=== PATIENT | male | born 1945 | race Caucasian/White ===

== ENCOUNTER → 2016-08-27 | Outpatient (CLI) | payer MEDICARE ==
--- NOTE | 2016-08-27 15:22 | US ---
EXAMINATION TYPE: US carotid duplex BILAT DATE OF EXAM: 08/27/2016 COMPARISON: NONE CLINICAL HISTORY: R42 dizziness and giddiness. EXAM MEASUREMENTS: RIGHT: Peak Systolic Velocity (PSV) cm/sec ----- Right CCA: 92.9 ----- Right ICA: 86.5 ----- Right ECA: 112.1 ICA/CCA ratio: 0.9 RIGHT: End Diastole cm/sec ----- Right CCA: 18.8 ----- Right ICA: 15.6 ----- Right ECA: 13.6 LEFT: Peak Systolic Velocity (PSV) cm/sec ----- Left CCA: 85.4 ----- Left ICA: 98.3 ----- Left ECA: 100.3 ICA/CCA ratio: 1.2 LEFT: End Diastole cm/sec ----- Left CCA: 22.5 ----- Left ICA: 41.2 ----- Left ECA: 15.6 VERTEBRALS (direction of flow): Right Vertebral: Antegrade Left Vertebral: Antegrade IMPRESSION: I DO NOT SEE EVIDENCE OF A HEMODYNAMICALLY SIGNIFICANT STENOSIS IN EITHER CAROTID SYSTEM. Criteria for Assigning % of Stenosis / Diameter reduction (Estimation based on the indirect measurements of the internal carotid artery velocities (ICA PSV). 1. Normal (no stenosis)=ICA PSV < 125 cm/s: ratio < 2.0: ICA EDV<40 cm/s. 2. Less than 50% stenosis=ICA PSV < 125 cm/s: ratio < 2.0: ICA EDV<40 cm/s. 3. 50 to 69% stenosis=ICA PSV of 125 to 230 cm/s: ration 2.0 ? 4.0: ICA EDV 40-100 cm/s. 4. Greater than 70% stenosis to near occlusion= ICA PSV > 230 cm/s: ratio > 4.0: ICA EDV > 100 cm/s. 5. Near occlusion= ICA PSV velocities may be low or undetectable: variable ratio and ICA EDV. 6. Total occlusion=unable to detect flow.
--- NOTE | 2016-08-28 10:45 | ECHOF ---
Referral Reason:R01.1 cardiac murmur MEASUREMENTS -------- HEIGHT: 188.0 cm WEIGHT: 102.1 kg BP: RVIDd: 3.3 cm (< 3.3) IVSd: 1.2 cm (0.6 - 1.1) LVIDd: 5.0 cm (3.9 - 5.3) LVPWd: 1.2 cm (0.6 - 1.1) IVSs: 1.5 cm LVIDs: 3.8 cm LVPWs: 1.5 cm LAESV Index (A-L): 29.53 ml/m Ao Diam: 3.0 cm (2.0 - 3.7) AV Cusp: 1.6 cm (1.5 - 2.6) LA Diam: 3.1 cm (2.7 - 3.8) MV EXCURSION: 15.965 mm (> 18.000) MV EF SLOPE: 91 mm/s (70 - 150) EPSS: 0.8 cm MV E Yakov: 0.59 m/s MV DecT: 439 ms MV A Yakov: 0.53 m/s MV E/A Ratio: 1.12 AV maxP.66 mmHg AV meanP.59 mmHg RAP: 5.00 mmHg RVSP: 9.81 mmHg FINDINGS -------- Sinus rhythm. This was a technically good study. There is mild concentric left ventricular hypertrophy. There is normal global left ventricular contractility. Overall left ventricular systolic function is mild-moderately impaired with, an EF between 40 - 45 %. The right ventricle is normal in size and function. LA is midly dilated 29-33ml/m2. The right atrium is normal in size. Aortic valve is trileaflet and is mildly thickened. There is mild aortic regurgitation. The mitral valve leaflets are mildly thickened. Mild mitral regurgitation is present. Trace tricuspid regurgitation present. There is no evidence of pulmonary hypertension. The right ventricular systolic pressure, as measured by Doppler, is 9.81mmHg. There is no pulmonic regurgitation present. The aortic root size is normal. The inferior vena cava is mildly dilated. There is no pericardial effusion. CONCLUSIONS -------- 1. Sinus rhythm. 2. Trace tricuspid regurgitation present. 3. There is no evidence of pulmonary hypertension. 4. There is no pulmonic regurgitation present. 5. The aortic root size is normal. 6. The inferior vena cava is mildly dilated. 7. There is no pericardial effusion. 8. This was a technically good study. 9. There is mild concentric left ventricular hypertrophy. 10. Overall left ventricular systolic function is mild-moderately impaired with, an EF between 40 - 45 %. 11. LA is midly dilated 29-33ml/m2. 12. Aortic valve is trileaflet and is mildly thickened. 13. There is mild aortic regurgitation. 14. The mitral valve leaflets are mildly thickened. 15. Mild mitral regurgitation is present. KNEE BOLTER: Austin Robb RDCS
== END | disposition home or self-care (01) ==
LOC: RADUSMAIN 14:04
PROVIDERS: ATTEND Family Medicine
DX: I08.3 Combined rheumatic disorders of mitral, aortic and tricuspid valves (principal); R42 Dizziness and giddiness
CPT/HCPCS: 93306; 93880

== ENCOUNTER 2017-05-26 09:10 | Inpatient (IN) | payer MEDICARE ==
[2017-05-26] MEDS ORDERED: methylPREDNISolone SOD SUCCI 125 MG/2 ML VIAL IV STA (09:33)
[2017-05-26] MEDS ORDERED: IPRATROPIUM 0.5 MG/2.5 ML NEBU INHALATION STA (09:33)
[2017-05-26] MEDS ORDERED: ALBUTEROL NEBULIZED 2.5 MG/3 ML INHALATION STA (09:33)
--- NOTE | 2017-05-26 09:36 | ED ---
General Adult HPI - General Chief complaint: Shortness of Breath Stated complaint: JUAN Time Seen by Provider: 05/26/17 09:12 Source: patient, EMS Mode of arrival: EMS Limitations: no limitations - History of Present Illness Initial comments: 72-year-old male history of COPD presents with 3 days cough and worsening dyspnea. Patient states his cough is productive of white sputum. Denies chest pain. Denies lower extremity pain or swelling. Patient has had low-grade temperature and rhinorrhea. No abdominal pain. No nausea vomiting. Remote history of tobacco use. - Related Data Home Medications Medication Instructions Recorded Confirmed cloNIDine HCL [Catapres] 0.3 mg PO DAILY 06/29/15 05/26/17 Albuterol Inhaler [Ventolin Hfa 1 - 2 puff INHALATION RT-Q6H PRN 05/26/17 Inhaler] Tiotropium [place] [Spiriva] 1 cap INHALATION RT-DAILY 05/26/17 05/26/17 Allergies Allergy/AdvReac Type Severity Reaction Status Date / Time No Known Allergies Allergy Verified 05/26/17 09:59 Review of Systems ROS Statement: Those systems with pertinent positive or pertinent negative responses have been documented in the HPI. ROS Other: All systems not noted in ROS Statement are negative. Past Medical History Past Medical History: COPD, Hypertension, Osteoarthritis (OA), Sleep Apnea/CPAP/ BIPAP Additional Past Medical History / Comment(s): Renal calculi x 2, PRUDENCIO without machine use, arthritis bilateral thumbs, L foot drop R/T sciatica. History of Any Multi-Drug Resistant Organisms: None Reported Past Surgical History: Hernia Repair, Orthopedic Surgery, Tonsillectomy Additional Past Surgical History / Comment(s): RT KNEE SCOPE. BILATERAL CATARACTS with lens implants. COLONOSCOPY with benign polypectomy, 06/05/15 umb hernia and R ing. hernia repair Past Anesthesia/Blood Transfusion Reactions: No Reported Reaction Past Psychological History: No Psychological Hx Reported Smoking Status: Current every day smoker Past Alcohol Use History: Occasional Past Drug Use History: None Reported - Past Family History Sister(s) Family Medical History: Cancer Father Family Medical History: Cancer Additional Family Medical History / Comment(s): Father had lung and colon cancer. He had cirrhosis. He just before his 80th birthday. He was a nonsmoker and a nondrinker. Mother Family Medical History: Diabetes Mellitus Additional Family Medical History / Comment(s): Mother was overweight. She at age 87 yrs. General Exam Limitations: no limitations General appearance: alert, in no apparent distress Head exam: Present: atraumatic, normocephalic Eye exam: Present: normal appearance, PERRL ENT exam: Present: normal exam Neck exam: Present: normal inspection. Absent: tenderness, meningismus Respiratory exam: Present: wheezes, rhonchi, decreased breath sounds, prolonged expiratory. Absent: respiratory distress Cardiovascular Exam: Present: regular rate, normal rhythm GI/Abdominal exam: Present: soft. Absent: distended, tenderness Extremities exam: Present: normal inspection, normal capillary refill. Absent: pedal edema Back exam: Present: normal inspection, full ROM Neurological exam: Present: alert, oriented X3, CN II-XII intact. Absent: motor sensory deficit Psychiatric exam: Present: normal affect, normal mood Skin exam: Present: warm, dry, intact. Absent: cyanosis, diaphoretic Course Vital Signs 05/26/17 05/26/17 05/26/17 09:15 09:36 09:48 Temperature 97.4 F L Pulse Rate 84 106 H 107 H Respiratory 24 18 24 Rate Blood Pressure 169/101 144/70 O2 Sat by Pulse 93 L 96 Oximetry 05/26/17 05/26/17 05/26/17 09:50 09:58 11:31 Temperature 97.6 F Pulse Rate 103 H 105 H Respiratory 24 14 Rate Blood Pressure 167/80 O2 Sat by Pulse 95 Oximetry 05/26/17 12:48 Temperature Pulse Rate 104 H Respiratory 20 Rate Blood Pressure 146/72 O2 Sat by Pulse 96 Oximetry - Reevaluation(s) Reevaluation #1: 05/26/17 12:51 On reevaluation, patient does feel somewhat better after steroids, and albuterol. However he continues to have bilateral wheezing and is somewhat dyspneic. EKG Findings - EKG Comments: EKG Findings:: EKG, sinus tachycardia with frequent PVC, rate of 108, CA interval 180, QRS duration 114, QTC 493, no T-wave inversion, no ST segment elevation Medical Decision Making - Medical Decision Making 72-year-old male presenting with worsening cough and dyspnea. Patient does have COPD. He is wheezing with decreased air entry bilaterally. Workup reveals normal white blood cell count, stable hemoglobin, mild hyponatremia 146. Troponin is 0.031 which is negative. BNP negative. Influenza negative. Chest x-ray shows COPD, there is concern for nodular versus scarring. Patient given steroids, albuterol, and Atrovent. On reevaluation he still remains quite dyspneic. He will be admitted for further treatment of COPD exacerbation. - Lab Data Result diagrams: 05/26/17 09:30 05/26/17 09:30 Lab Results 05/26/17 05/26/17 05/26/17 Range/Units 09:30 09:30 09:30 WBC (3.8-10.6) k/uL RBC (4.30-5.90) m/uL Hgb (13.0-17.5) gm/dL Hct (39.0-53.0) % MCV (80.0-100.0) fL MCH (25.0-35.0) pg MCHC (31.0-37.0) g/dL RDW (11.5-15.5) % Plt Count (150-450) k/uL Neutrophils % % Lymphocytes % % Monocytes % % Eosinophils % % Basophils % % Neutrophils # (1.3-7.7) k/uL Lymphocytes # (1.0-4.8) k/uL Monocytes # (0-1.0) k/uL Eosinophils # (0-0.7) k/uL Basophils # (0-0.2) k/uL PT (9.0-12.0) sec INR (<1.2) APTT (22.0-30.0) sec Sodium (137-145) mmol/L Potassium (3.5-5.1) mmol/L Chloride (98-107) mmol/L Carbon Dioxide (22-30) mmol/L Anion Gap mmol/L BUN (9-20) mg/dL Creatinine (0.66-1.25) mg/dL Est GFR (CKD-EPI)AfAm (>60 ml/min/1.73 sqM) Est GFR (CKD-EPI)NonAf (>60 ml/min/1.73 sqM) Glucose (74-99) mg/dL Plasma Lactic Acid Arun 1.4 (0.7-2.0) mmol/L Calcium (8.4-10.2) mg/dL Magnesium (1.6-2.3) mg/dL Total Bilirubin (0.2-1.3) mg/dL AST (17-59) U/L ALT (21-72) U/L Alkaline Phosphatase (38-126) U/L Total Creatine Kinase 97 (55-170) U/L CK-MB (CK-2) 3.6 H* (0.0-2.4) ng/mL CK-MB (CK-2) Rel Index 3.7 Troponin I 0.031 (0.000-0.034) ng/mL NT-Pro-B Natriuret Pep pg/mL Total Protein (6.3-8.2) g/dL Albumin (3.5-5.0) g/dL Influenza Type A RNA Not Detected (Not Detectd) Influenza Type B (PCR) Not Detected (Not Detectd) 05/26/17 05/26/17 05/26/17 Range/Units 09:30 09:30 09:30 WBC 7.9 (3.8-10.6) k/uL RBC 4.50 (4.30-5.90) m/uL Hgb 15.1 (13.0-17.5) gm/dL Hct 43.8 (39.0-53.0) % MCV 97.4 (80.0-100.0) fL MCH 33.6 (25.0-35.0) pg MCHC 34.5 (31.0-37.0) g/dL RDW 12.8 (11.5-15.5) % Plt Count 191 (150-450) k/uL Neutrophils % 78 % Lymphocytes % 11 % Monocytes % 4 % Eosinophils % 6 % Basophils % 0 % Neutrophils # 6.2 (1.3-7.7) k/uL Lymphocytes # 0.9 L (1.0-4.8) k/uL Monocytes # 0.4 (0-1.0) k/uL Eosinophils # 0.5 (0-0.7) k/uL Basophils # 0.0 (0-0.2) k/uL PT (9.0-12.0) sec INR (<1.2) APTT (22.0-30.0) sec Sodium 146 H (137-145) mmol/L Potassium 4.2 (3.5-5.1) mmol/L Chloride 105 (98-107) mmol/L Carbon Dioxide 27 (22-30) mmol/L Anion Gap 14 mmol/L BUN 19 (9-20) mg/dL Creatinine 1.10 (0.66-1.25) mg/dL Est GFR (CKD-EPI)AfAm 76 (>60 ml/min/1.73 sqM) Est GFR (CKD-EPI)NonAf 66 (>60 ml/min/1.73 sqM) Glucose 121 H (74-99) mg/dL Plasma Lactic Acid Arun (0.7-2.0) mmol/L Calcium 9.1 (8.4-10.2) mg/dL Magnesium 1.8 (1.6-2.3) mg/dL Total Bilirubin 0.7 (0.2-1.3) mg/dL AST 36 (17-59) U/L ALT 35 (21-72) U/L Alkaline Phosphatase 74 (38-126) U/L Total Creatine Kinase (55-170) U/L CK-MB (CK-2) (0.0-2.4) ng/mL CK-MB (CK-2) Rel Index Troponin I (0.000-0.034) ng/mL NT-Pro-B Natriuret Pep 1000 pg/mL Total Protein 6.9 (6.3-8.2) g/dL Albumin 3.8 (3.5-5.0) g/dL Influenza Type A RNA (Not Detectd) Influenza Type B (PCR) (Not Detectd) 05/26/17 Range/Units 09:30 WBC (3.8-10.6) k/uL RBC (4.30-5.90) m/uL Hgb (13.0-17.5) gm/dL Hct (39.0-53.0) % MCV (80.0-100.0) fL MCH (25.0-35.0) pg MCHC (31.0-37.0) g/dL RDW (11.5-15.5) % Plt Count (150-450) k/uL Neutrophils % % Lymphocytes % % Monocytes % % Eosinophils % % Basophils % % Neutrophils # (1.3-7.7) k/uL Lymphocytes # (1.0-4.8) k/uL Monocytes # (0-1.0) k/uL Eosinophils # (0-0.7) k/uL Basophils # (0-0.2) k/uL PT 10.0 (9.0-12.0) sec INR 1.0 (<1.2) APTT 23.1 (22.0-30.0) sec Sodium (137-145) mmol/L Potassium (3.5-5.1) mmol/L Chloride (98-107) mmol/L Carbon Dioxide (22-30) mmol/L Anion Gap mmol/L BUN (9-20) mg/dL Creatinine (0.66-1.25) mg/dL Est GFR (CKD-EPI)AfAm (>60 ml/min/1.73 sqM) Est GFR (CKD-EPI)NonAf (>60 ml/min/1.73 sqM) Glucose (74-99) mg/dL Plasma Lactic Acid Arun (0.7-2.0) mmol/L Calcium (8.4-10.2) mg/dL Magnesium (1.6-2.3) mg/dL Total Bilirubin (0.2-1.3) mg/dL AST (17-59) U/L ALT (21-72) U/L Alkaline Phosphatase (38-126) U/L Total Creatine Kinase (55-170) U/L CK-MB (CK-2) (0.0-2.4) ng/mL CK-MB (CK-2) Rel Index Troponin I (0.000-0.034) ng/mL NT-Pro-B Natriuret Pep pg/mL Total Protein (6.3-8.2) g/dL Albumin (3.5-5.0) g/dL Influenza Type A RNA (Not Detectd) Influenza Type B (PCR) (Not Detectd) Disposition Clinical Impression: Acute exacerbation of chronic obstructive airways disease Disposition: ADMITTED IP TO THIS HOSP Condition: Stable Is patient prescribed a controlled substance at discharge?: No Referrals: Andrew Elizalde MD [Primary Care Provider] - 1-2 days Decision to Admit Reason: Admit from EC Decision Date: 05/26/17 Decision Time: 12:53
[2017-05-26 09:51] LABS: Basophils % (A) 0 %; Eosinophils # (A) 0.5 k/uL (0-0.7); Eosinophils % (A) 6 %; HCT 43.8 % (39.0-53.0); HGB 15.1 gm/dL (13.0-17.5); Lymphocytes # (A) 0.9 k/uL (1.0-4.8); Lymphocytes % (A) 11 %; MCH 33.6 pg (25.0-35.0); MCHC 34.5 g/dL (31.0-37.0); MCV 97.4 fL (80.0-100.0); Mean Platelet Volume 7.3; Monocytes # (A) 0.4 k/uL (0-1.0); Monocytes % (A) 4 %; Neutrophils # (A) 6.2 k/uL (1.3-7.7); Neutrophils % (A) 78 %; Platelet Count 191 k/uL (150-450); RDW 12.8 % (11.5-15.5); WBC 7.9 k/uL (3.8-10.6)
[2017-05-26 09:56] LABS: Partial Thromboplastin Time 23.1 sec (22.0-30.0)
[2017-05-26 10:04] LABS: Albumin 3.8 g/dL (3.5-5.0); Calcium 9.1 mg/dL (8.4-10.2); Magnesium 1.8 mg/dL (1.6-2.3); Potassium 4.2 mmol/L (3.5-5.1); Total Bilirubin 0.7 mg/dL (0.2-1.3); Total Protein 6.9 g/dL (6.3-8.2)
[2017-05-26 10:44] LABS: Troponin I 0.031 ng/mL (0.000-0.034)
[2017-05-26 10:48] LABS: Creatine Kinase MB 3.6 ng/mL (0.0-2.4)
--- NOTE | 2017-05-26 11:03 | XR ---
EXAMINATION TYPE: XR chest 2V DATE OF EXAM: 05/26/2017 COMPARISON: 08/12/2015 and 06/29/2015 HISTORY: 72-year-old male difficulty breathing TECHNIQUE: PA and lateral views FINDINGS: Heart normal size. Mild elongation of the thoracic aorta. Mild diffuse interstitial prominence is unc hanged and mild hyperinflation. Chronic focal densities at the right base. Some nodularity at the rig ht base may be more pronounced. No new consolidation or pleural effusion. IMPRESSION: 1. COPD. No acute cardiopulmonary process. 2. Possible increasing nodularity at the right base. This may reflect pleural parenchymal scarring. C ontrast-enhanced CT can be performed nonemergently to exclude a pulmonary nodule and compare to 2015.
[2017-05-26] MEDS ORDERED: SODIUM CHLORIDE 0.9% 500 ML IV ONE (11:58)
[2017-05-26] MEDS ORDERED: NALOXONE 0.4 MG/ML 1 ML VIAL IV PRN (12:54)
[2017-05-26] MEDS ORDERED: ALBUTEROL NEBULIZED 2.5 MG/3 ML INHALATION PRN (12:55)
[2017-05-26] MEDS: ALBUTEROL NEBULIZED 2.5 MG/3 ML INHALATION SCH ×2 (15:22→18:50)
[2017-05-26] MEDS: SODIUM CHLORIDE 0.9% 1,000 ML IV SCH (15:23)
[2017-05-26] MEDS ORDERED: methylPREDNISolone SOD SUCCI 125 MG/2 ML VIAL IV SCH (21:00)
[2017-05-26] MEDS ORDERED: RX INFO: IV CONTRAST WAS GIVEN 1 EACH MISC MISCELLANE PRN (23:32)
--- NOTE | 2017-05-27 00:22 | HP ---
HISTORY AND PHYSICAL DATE OF ADMISSION: 05/26/2017. PRESENTING COMPLAINT: Cough, short of breath. HISTORY OF PRESENTING COMPLAINT: Pleasant 72-year-old patient of Dr. Elizalde. Chronic stable medical conditions include hypertension, osteoarthritis, chronic left foot drop for which he wears support. The patient has continued to smoke off and on for quite some time, more so in the past. For 10 days patient is getting more and more short of breath and tired. Today became more short of breath, increasing wheezing, some white phlegm. No fever, no chills, tired and run down. Decided to finally come down to the ER. The patient receive some breathing treatments, felt a bit better. The patient does have some chronic swelling of the left lower extremity on presentation to the hospital. Denies obvious chest pressure. REVIEW OF SYSTEM: CONSTITUTIONAL: Tired. HEENT: None. RESPIRATORY: As above. CARDIOVASCULAR: As above. GASTROINTESTINAL: None. MUSCULOSKELETAL: Arthritic pain in multiple joints. DERMATOLOGIC: None. HEMATOLOGIC: None. LYMPHATICS: None. PSYCHIATRY: None. NEUROLOGIC: None. PAST MEDICAL HISTORY: COPD, hypertension, osteoarthritis, sleep apnea does not use CPAP machine, nephrolithiasis, osteoarthritis in both hands and thumbs and right knee, left foot drop. PAST SURGICAL HISTORY: Hernia repair, tonsillectomy, right knee scope, bilateral cataract with lens implant, colonoscopy with benign polypectomy, umbilical and right inguinal hernia repair. SOCIAL HISTORY: Lives by himself. He was smoking for over 40 years, down to about a quarter-pack a day. The patient drinks peppermint schnapps probably every other day. FAMILY HISTORY: Father had lung and colon cancer, also had cirrhosis. HOME MEDICATIONS: Spiriva 1 capsule daily, Ventolin 1 to 2 puffs every 6 hours p.r.n., Catapres 0.3 mg p.o. daily. ALLERGIES: None. PHYSICAL EXAMINATION: Vital signs on presentation, temperature 97.4, pulse of 106, respirations 24, blood pressure 140/70, pulse ox 93% on room AIR. GENERAL APPEARANCE: Average built, sitting up, tired appearing. EYES: Pupils equal. Conjunctivae normal. HEENT: Oral cavity normal. NECK: JVD not raised. Mass not palpable. Respiratory effort decreased. LUNGS: Decreased breath sounds. Prolonged expiration and wheezing. CARDIOVASCULAR: First and second sounds. No edema. ABDOMEN: Soft, nontender. Liver and spleen not palpable. LYMPHATIC: No lymph nodes palpable in neck or axillae. PSYCHIATRY: Alert and oriented x3. Mood normal. NEUROLOGIC: Pupils clear. Cranial nerves grossly intact. Power and sensation grossly intact except the patient on the left leg has a footdrop. INVESTIGATIONS: White count 7.9, hemoglobin 15.1, potassium 4.2. BUN AND creatinine normal. Troponin 0.031. ProBNP is . Influenza A and B negative. EKG shows some premature atrial beats and some ventricular beats. ASSESSMENT: 1. Acute chronic obstructive pulmonary disease exacerbation in a current smoker. 2. Essential hypertension. 3. Primary osteoarthritis of multiple joints. 4. Chronic left foot drop. 5. Obstructive sleep apnea, patient has not been using CPAP machine. 6. Chronic nicotine dependence, patient is a cigarette smoker. 7. Given patient's presentation, rule out pulmonary embolism and also consider pulmonary hypertension. The patient has some clinical history suggestive of subtle ischemic heart disease and we will do some more serial troponins. PLAN: The patient has been put on IV Solu-Medrol and nebulized bronchodilator. The patient also will be put on aspirin. Also do 2D echocardiogram and a CT angio of the chest. We will get a cardiology opinion and consult Pulmonary. Smoking cessation counseling was done with the patient and told him about the effects including COPD. The patient was also given nicotine patch. More than 3 minutes was spent on this aspect of the case. ZAFARL / ADONISN: [id number] /
--- NOTE | 2017-05-27 00:30 | CT ---
EXAMINATION TYPE: CT angio chest DATE OF EXAM: 05/27/2017 12:19 AM COMPARISON: 06/29/2015 HISTORY: R/O PE CT DLP: 537.00 mGycm Automated exposure control for dose reduction was used. CONTRAST: CTA scan of the thorax is performed with IV Contrast, patient injected with 80 mL of Isovue 370, pulm onary embolism protocol. There are 3-D post processed images.. FINDINGS: There is diffuse pulmonary emphysema. There is coarse linear density in the right middle lobe consist ent with pleural and pulmonary scarring and atelectasis. I see no pulmonary mass. There is no pleural effusion. Heart size is normal. There is no pericardial effusion. I see no filling defects in the pulmonary arteries. Thoracic aorta is atheromatous. There is no evide nce of aneurysm or dissection. There are a few mediastinal and bronchial lymph nodes that measure les s than 1 cm. There is spurring in the thoracic spine. IMPRESSION: NO EVIDENCE OF PULMONARY EMBOLISM. RIGHT MIDDLE LOBE PLEURAL AND PULMONARY SCARRING AND ATELECTASIS. PULMONARY EMPHYSEMA. THERE IS OVERALL NOT A SIGNIFICANT CHANGE COMPARED TO OLD EXAM.
[2017-05-27] MEDS: methylPREDNISolone SOD SUCCI 40 MG/ML 1 ML VIAL IV SCH ×3 (02:34→16:52)
[2017-05-27] MEDS: SODIUM CHLORIDE 0.9% 1,000 ML IV SCH ×2 (02:34→11:07)
[2017-05-27] MEDS: IPRATROPIUM-ALBUTEROL 3 ML NEB INHALATION SCH ×5 (07:07→19:16)
[2017-05-27] MEDS ORDERED: ALBUTEROL NEBULIZED 2.5 MG/3 ML INHALATION SCH (08:00)
[2017-05-27] MEDS: cloNIDine HCL 0.1 MG TAB PO SCH (08:41)
[2017-05-27] MEDS: NICOTINE 7MG/24HR PATCH TRANSDERM SCH (08:42)
[2017-05-27 09:13] VITALS: RESP 18
--- NOTE | 2017-05-27 11:24 | ECHOF ---
Referral Reason:poss pulm HTN MEASUREMENTS -------- HEIGHT: 182.9 cm WEIGHT: 102.1 kg BP: 126/78 IVSd: 1.4 cm (0.6 - 1.1) LVIDd: 3.9 cm (3.9 - 5.3) LVPWd: 1.6 cm (0.6 - 1.1) IVSs: 1.9 cm LVIDs: 1.4 cm LVPWs: 1.6 cm Ao Diam: 3.8 cm (2.0 - 3.7) AV Cusp: 2.1 cm (1.5 - 2.6) LA Diam: 3.8 cm (2.7 - 3.8) MV EXCURSION: 15.618 mm (> 18.000) MV EF SLOPE: 73 mm/s (70 - 150) EPSS: 1.1 cm MV E Yakov: 0.68 m/s MV DecT: 199 ms MV A Yakov: 0.72 m/s MV E/A Ratio: 0.94 RAP: 5.00 mmHg RVSP: 14.41 mmHg FINDINGS -------- Resting tachycardia (HR>100bpm). This was a technically good study. The left ventricular size is normal. There is moderate concentric left ventricular hypertrophy. O verall left ventricular systolic function is mildly impaired with, an EF between 45 - 50 %. The right ventricle is normal in size and function. The left atrium is normal in size. The right atrium is normal in size. The aortic valve is trileaflet and appears structurally normal. There is trace mitral regurgitation. Trace tricuspid regurgitation present. Pulmonic valve appears structurally normal. The aortic root size is normal. The pericardium is normal. CONCLUSIONS -------- 1. Resting tachycardia (HR>100bpm). 2. This was a technically good study. 3. The left ventricular size is normal. 4. There is moderate concentric left ventricular hypertrophy. 5. Overall left ventricular systolic function is mildly impaired with, an EF between 45 - 50 %. 6. The right ventricle is normal in size and function. 7. The left atrium is normal in size. 8. The right atrium is normal in size. 9. The aortic valve is trileaflet and appears structurally normal. 10. There is trace mitral regurgitation. 11. Trace tricuspid regurgitation present. 12. Pulmonic valve appears structurally normal. 13. The aortic root size is normal. 14. The pericardium is normal. 15. Basal inferior wall is mildly hypokinetic MEDICAL DIRECTOR/HEAD TEAM PHYSICIAN: Mara Dickerson RDCS
[2017-05-27 11:39] LABS: Cholesterol 149 mg/dL (<200); HDL Cholesterol 53 mg/dL (40-60); LDL Cholesterol,Calculated 81 mg/dL (0-99); Triglycerides 74 mg/dL (<150)
--- NOTE | 2017-05-27 12:37 | P.CNPUL ---
History of Present Illness Consult date: 05/27/17 Reason for consult: dyspnea, cough History of present illness: 72-year-old male patient with known history of COPD with a baseline FEV1 of 75% of predicted maintained on Spiriva on outpatient basis. His last COPD exacerbation was approximately 2 years ago and at that time the patient was briefly hospitalized and he was discharged home. He continued to smoke 1 pack of cigarettes a day. He was doing good without any major medical problems and comorbidities. Yesterday the patient acutely became more short of breath. He felt he was having excessive chest congestion and he had increased dyspnea wheezing. He started using his Ventolin rescue inhaler more frequently. Ultimately he decided to come into the hospital for further care. He had no fever or chills. He had no pleurisy. No hemoptysis. His white cell count was at 7.9. Rest of the blood work and electrodes were all within normal limits. He did have over some troponin leak with troponin level of 0.031 and 0.08 respectively. The patient was seen by cardiology. Echocardiogram has been ordered. The EKG showed a normal sinus rhythm with occasional PVCs. Echocardiac Allen showed a moderate concentric left ventricular hypertrophy and an ejection fraction of 55-60% and there is no other valvular abnormalities noted. CT angios the chest was also done that showed no evidence of any pulmonary embolism. There is some limited elevation of the right hemidiaphragm. There is also pulmonary scarring/atelectasis along the right middle lobe. No other major abnormalities were noted. Clinically the patient is feeling better. Less short of breath bronchospastic and wheezy on today's evaluation. No swelling lower extremities pain no 70 DVTs or pulmonary embolism. No other complaints otherwise. Review of Systems Constitutional: Reports as per HPI Eyes: denies blurred vision, denies bulging eye, denies decreased vision Ears: deny: decreased hearing, ear discharge, earache Ears, nose, mouth and throat: Denies headache, Denies sore throat Cardiovascular: Reports decreased exercise tolerance, Reports dyspnea on exertion, Reports shortness of breath Respiratory: Reports cough, Reports dyspnea, Reports wheezing Gastrointestinal: Denies abdominal pain, Denies diarrhea, Denies nausea, Denies vomiting Genitourinary: Reports as per HPI Musculoskeletal: Reports as per HPI Musculoskeletal: absent: ankle pain, ankle stiffness, ankle swelling Integumentary: Denies pruritus, Denies rash Neurological: Denies numbness, Denies weakness Psychiatric: Denies anxiety, Denies depression Endocrine: Denies fatigue, Denies weight change Hematologic/Lymphatic: Reports as per HPI Allergic/Immunologic: Reports as per HPI Past Medical History Past Medical History: COPD, GI Bleed, Hypertension, Osteoarthritis (OA), Renal Disease, Sleep Apnea/CPAP/BIPAP Additional Past Medical History / Comment(s): COPD with an FEV1 of 75% of predicted, obstructive sleep apnea not utilizing any treatment, history of nephrolithiasis, 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 COLONOSCOPY with benign polypectomy, 06/05/15 umbilical and right inguinal hernia repair Past Anesthesia/Blood Transfusion Reactions: No Reported Reaction Smoking Status: Current some day smoker - Past Family History Sister(s) Family Medical History: Cancer Father Family Medical History: Cancer Additional Family Medical History / Comment(s): Father had lung and colon cancer. He had cirrhosis. He just before his 80th birthday. He was a nonsmoker and a nondrinker. Mother Family Medical History: Diabetes Mellitus Additional Family Medical History / Comment(s): Mother was overweight. She at age 87 yrs. Medications and Allergies Home Medications Medication Instructions Recorded Confirmed Type cloNIDine HCL [Catapres] 0.3 mg PO DAILY 06/29/15 05/26/17 History Albuterol Inhaler [Ventolin Hfa 1 - 2 puff INHALATION RT-Q6H PRN 05/26/17 History Inhaler] Tiotropium [place] [Spiriva] 1 cap INHALATION RT-DAILY 05/26/17 05/26/17 History Allergies Allergy/AdvReac Type Severity Reaction Status Date / Time No Known Allergies Allergy Verified 05/26/17 09:59 Physical Exam Vitals: Vital Signs Temp Pulse Pulse Resp BP BP Pulse Ox 05/27/17 11:13 104 H 05/27/17 10:53 100 05/27/17 09:18 130/70 05/27/17 07:20 102 H 05/27/17 07:09 100 94 L 05/27/17 07:00 97.7 F 91 18 93 L 05/26/17 23:32 20 05/26/17 20:15 98.8 F 97 20 126/78 95 05/26/17 19:03 18 05/26/17 18:58 104 H 05/26/17 18:52 100 05/26/17 16:00 18 05/26/17 15:35 98.3 F 96 101 H 18 161/80 93 L 05/26/17 15:22 100 05/26/17 14:00 102 H 20 137/68 96 05/26/17 12:48 104 H 20 146/72 96 Intake and Output 05/26/17 05/27/17 05/27/17 22:59 06:59 14:59 Intake Total 900 980 Balance 900 980 Intake: Intake, IV Titration 300 500 Amount Sodium Chloride 0.9% 1, 300 500 000 ml @ 75 mls/hr IV . [id number] [facility] Rx#:[id number] Oral 600 480 Other: Voiding Method Toilet Toilet # Voids 2 2 Weight 102 kg The patient appeared well nourished and normally developed. Vital signs as documented. Head exam is unremarkable. No scleral icterus or corneal arcus noted. Neck is without jugular venous distension, thyromegaly, or carotid bruits. Carotid upstrokes are brisk bilaterally. Lungs are diminished breath sounds bilaterally along with prolongation of expiratory phase of breathing and scattered expiratory wheezes heard throughout the lung his bilaterally. Cardiac exam reveals the PMI to be normally sized and situated. Rhythm is regular. First and second heart sounds normal. No murmurs, rubs or gallops. Abdominal exam reveals normal bowel sounds, no masses, no organomegaly and no aortic enlargement. Extremities are nonedematous and both femoral and pedal pulses are normal. Neurologically patient is awake and alert and there is no focal neurological deficit.Examination of the skin revealed no evidence of significant rashes, suspicious appearing nevi or other concerning lesions. Results - Laboratory Findings CBC and BMP: 05/26/17 09:30 05/26/17 09:30 PT/INR, D-dimer PT 10.0 sec (9.0-12.0) 05/26/17 09:30 INR 1.0 (<1.2) 05/26/17 09:30 Abnormal lab findings: Abnormal Labs 05/26/17 05/26/17 05/26/17 09:30 09:30 09:30 Lymphocytes # 0.9 L Sodium 146 H Glucose 121 H CK-MB (CK-2) 3.6 H* Troponin I 05/27/17 05/27/17 01:07 07:14 Lymphocytes # Sodium Glucose CK-MB (CK-2) Troponin I 0.085 H* 0.084 H* - Diagnostic Findings Chest x-ray: image reviewed CT scan - chest: image reviewed Assessment and Plan Plan: Assessment 1 acute COPD exacerbation with secondary shortness of breath 2 COPD mild in severity with a baseline FEV1 of 75% of predicted 3 acute bronchitis 4 chronic elevation of right hemidiaphragm 5 smoker 6 troponin leak are done that investigation. Echo of the heart is within normal limits. EKG is also within normal limits. Rule out acute non-ST segment elevation myocardial infarction 7 preserved LV function without any valvular abnormalities on today's echocardiogram 8 degenerative arthritis 9 hypertension Plan In terms of the acute COPD exacerbation the patient is already improving. Reviewed the chest x-ray in the CAT scan of the chest. No major abnormal is a been noted and the patient has been counseled for smoking cessation. Continue bronchodilators and systemic steroids. The patient can be discharged home within next 24 hours and a prednisone burst taper in addition to Spiriva as maintenance which is an excellent choice in regards to COPD. No other complaints otherwise for now. The patient will be seen also by cardiology in regards to the troponin leak. Outpatient cardiac stress testing may be of value especially with his underlying troponin leak. No angina. No palpitations. No EKG changes. Echo was within normal limits.
--- NOTE | 2017-05-27 12:45 | P.CRDCN ---
History of Present Illness Consult date: 05/27/17 History of present illness: Mr. Hightower is a pleasant 72-year-old male past medical history significant for chronic tobacco use, COPD, hypertension, kidney disease and sleep apnea. He denies history of coronary artery disease and has never seen a air chief marshal for any reason. We have been asked to see him in consultation for elevated troponins. He presented to the hospital yesterday with complaints of cough, dyspnea, congestion and fever. He had been coughing for the previous week and bringing up significant amount of white/clear phlegm. He was managing at home until about 48 hrs ago when he started feeling increasing tired and short of breath. He denies symptoms of chest pain, dizziness, palpitations, nausea, vomiting or diaphoresis. He has been receiving IV steroids, breathing treatments and IV fluids since admission. At the time of my exam he is seen sitting up in bed in no acute distress with no complaints. He feels an improvement in his breathing and states his cough is more intermittent since admission but still coughing with clear sputum. EKG on arrival reveals sinus tachycardia heart rate 108 with PVCs. Chest x-ray reveals no acute cardiopulmonary process with evidence of underlying COPD. There is also possibility of an increasing nodularity at the right base. CT angios negative for pulmonary embolism with right middle lobe pleural and pulmonary scarring. Laboratory data reviewed hemoglobin 15.1, platelets 191, sodium 146, potassium 4.2, creatinine 1.1, magnesium 1.8, LDL 81, HDL 53, cardiac enzymes 0.031, 0.085 , 0.084. ProBNP 1000. Echocardiogram obtained reveals mildly decreased left ventricular systolic function with ejection fraction 45-50%, moderate LVH and basal inferior wall is mildly hypokinectic. Currently he takes clonidine 0.3 mg daily for blood pressure. Review of Systems At the time of my exam: CONSTITUTIONAL: Denies fever. Denies chills. EYES: Denies blurred vision. Denies vision changes. Denies eye pain. EARS, NOSE, MOUTH & THROAT: Denies headache. Denies sore throat. Denies ear pain. CARDIOVASCULAR: Denies chest pain. Denies shortness of breath. Denies orthopnea. Denies PND. Denies palpitations. RESPIRATORY: Complains of productive cough. GASTROINTESTINAL: Denies abdominal pain. Denies diarrhea. Denies constipation. Denies nausea. Denies vomiting. MUSCULOSKELETAL: Denies myalgias. INTEGUMENTARY: Denies pruitis. Denies rash. NEUROLOGIC: Denies numbness. Denies tingling. Denies weakness. PSYCHIATRIC: Denies anxiety. Denies depression. ENDOCRINE: Denies fatigue. Denies weight change. Denies polydipsia. Denies polyurina. GENITOURINARY: Denies burning, hematuria or urgency with micturation. HEMATOLOGIC: Denies history of anemia. Denies bleeding. Past Medical History Past Medical History: COPD, GI Bleed, Hypertension, Osteoarthritis (OA), Renal Disease, Sleep Apnea/CPAP/BIPAP Additional Past Medical History / Comment(s): Nephrolithiasis (3 stones), arthritis bilateral hands/thumbs, PRUDENCIO without device, R knee "unhappy triadP, L foot drop d/t sciatica, lower GI bleed thought d/t contipation. History of Any Multi-Drug Resistant Organisms: None Reported Past Surgical History: Hernia Repair, Orthopedic Surgery, Tonsillectomy Additional Past Surgical History / Comment(s): RT KNEE SCOPE, BILATERAL CATARACTS with lens implants. COLONOSCOPY with benign polypectomy, 06/05/15 umb hernia and R ing. hernia repair Past Anesthesia/Blood Transfusion Reactions: No Reported Reaction Smoking Status: Current some day smoker - Past Family History Sister(s) Family Medical History: Cancer Father Family Medical History: Cancer Additional Family Medical History / Comment(s): Father had lung and colon cancer. He had cirrhosis. He just before his 80th birthday. He was a nonsmoker and a nondrinker. Mother Family Medical History: Diabetes Mellitus Additional Family Medical History / Comment(s): Mother was overweight. She at age 87 yrs. Medications and Allergies Home Medications Medication Instructions Recorded Confirmed Type cloNIDine HCL [Catapres] 0.3 mg PO DAILY 06/29/15 05/26/17 History Albuterol Inhaler [Ventolin Hfa 1 - 2 puff INHALATION RT-Q6H PRN 05/26/17 History Inhaler] Tiotropium [place] [Spiriva] 1 cap INHALATION RT-DAILY 05/26/17 05/26/17 History Allergies Allergy/AdvReac Type Severity Reaction Status Date / Time No Known Allergies Allergy Verified 05/26/17 09:59 Physical Exam Vitals: Vital Signs Temp Pulse Pulse Resp BP BP Pulse Ox 05/27/17 11:13 104 H 05/27/17 10:53 100 05/27/17 09:18 130/70 05/27/17 07:20 102 H 05/27/17 07:09 100 94 L 05/27/17 07:00 97.7 F 91 18 93 L 05/26/17 23:32 20 05/26/17 20:15 98.8 F 97 20 126/78 95 05/26/17 19:03 18 05/26/17 18:58 104 H 05/26/17 18:52 100 05/26/17 16:00 18 05/26/17 15:35 98.3 F 96 101 H 18 161/80 93 L 05/26/17 15:22 100 05/26/17 14:00 102 H 20 137/68 96 05/26/17 12:48 104 H 20 146/72 96 Intake and Output 05/26/17 05/27/17 05/27/17 22:59 06:59 14:59 Intake Total 900 980 Balance 900 980 Intake: Intake, IV Titration 300 500 Amount Sodium Chloride 0.9% 1, 300 500 000 ml @ 75 mls/hr IV . [id number] [facility] Rx#:[id number] Oral 600 480 Other: Voiding Method Toilet Toilet # Voids 2 2 Weight 102 kg Blood pressure 126/78 heart rate 97 afebrile maintaining oxygen saturation on room air GENERAL: This is a 72-year-old male in no apparent distress at the time of my examination. HEENT: Head is atraumatic, normocephalic. Pupils are equal, round. Sclerae anicteric. Conjunctivae are clear. Mucous membranes of the mouth are moist. Neck is supple. There is no jugular venous distention. No carotid bruit is heard. LUNGS: Clear to auscultation no wheezes, rales or rhonchi. No chest wall tenderness is noted on palpation or with deep breathing. Diminished b/l. HEART: Regular rate and rhythm without murmurs, rubs or gallops. S1 and S2 heard. ABDOMEN: Soft, nontender. Bowel sounds are heard. No organomegaly noted. EXTREMITIES: Discoloration to left lower extremity up to knee with decreased muscle tone. Trace right lower extremity edema. VASCULAR: Radial and dorsalis pedis pulses palpated, no evidence of clubbing. NEUROLOGIC: Patient is awake, alert and oriented x3. Results 05/26/17 09:30 05/26/17 09:30 Cardiac Enzymes 05/27/17 05/27/17 Range/Units 01:07 07:14 Troponin I 0.085 H* 0.084 H* (0.000-0.034) ng/mL Lipids 05/27/17 Range/Units 07:14 Triglycerides 74 (<150) mg/dL Cholesterol 149 (<200) mg/dL HDL Cholesterol 53 (40-60) mg/dL Current Medications Generic Name Dose Route Start Last Admin Trade Name Freq PRN Reason Stop Dose Admin Albuterol/Ipratropium 3 ml 05/26/17 23:35 05/27/17 10:53 Duoneb 0.5 Mg-3 Mg/3 Ml Soln INHALATION 3 ml RT-QID [facility] Administration Aspirin 81 mg 05/27/17 11:00 Aspirin PO DAILY [facility] Clonidine 0.3 mg 05/27/17 09:00 05/27/17 08:41 Catapres PO 0.3 mg DAILY [facility] Administration Sodium Chloride 1,000 mls @ 75 mls/hr 05/26/17 13:00 05/27/17 11:07 Saline 0.9% IV 75 mls/hr .[id number] [facility] Administration Methylprednisolone Sodium Succinate 40 mg 05/27/17 02:00 05/27/17 08:37 Solu-Medrol IV 40 mg Q8HR [facility] Administration Metoprolol Tartrate 25 mg 05/27/17 11:00 Lopressor PO BID [facility] Miscellaneous Information 1 each 05/26/17 23:32 Rx Info: Iv Contrast Was Given MISCELLANE 05/28/17 23:32 DAILY PRN Per Protocol Naloxone HCl 0.2 mg 05/26/17 12:54 Narcan IV Q2M PRN Opioid Reversal Nicotine 1 patch 05/27/17 09:00 05/27/17 08:42 Habitrol 7mg/24hr Patch TRANSDERM 1 patch DAILY [facility] Administration Intake and Output 05/26/17 05/27/17 05/27/17 22:59 06:59 14:59 Intake Total 900 980 Balance 900 980 Intake: Intake, IV Titration 300 500 Amount Sodium Chloride 0.9% 1, 300 500 000 ml @ 75 mls/hr IV . [id number] [facility] Rx#:[id number] Oral 600 480 Other: Voiding Method Toilet Toilet # Voids 2 2 Weight 102 kg Patient Weight 05/28/17 06:59 Weight 102 kg 05/26/17 09:30 05/26/17 09:30 Assessment and Plan Assessment: ASSESSMENT 1. Acute COPD exacerbation 2. Mild troponin leak of unclear etiology 3. Hypertension 4. Sleep apnea not compliant with CPAP 5. Chronic tobacco use PLAN Echocardiogram was reviewed and reveals preserved LV systolic function. We will repeat an EKG now. Add aspirin 81 mg daily, lopressor 25 mg BID and check a lipid panel. Troponin elevation is not indicative of an acute coronary event, may be possibly related to oxygen mismatch. Smoking cessation recommended and discussed at length. We will continue to follow and maker further recommendations. The above impression and plan of care have been discussed and directed by the signing physician. Vera Mari, nurse practitioner, acting as scribe for signing physician.
[2017-05-27] MEDS: ASPIRIN 81 MG PO SCH (13:06)
[2017-05-27] MEDS: METOPROLOL TARTRATE 25 MG TAB PO SCH ×2 (13:06→21:20)
--- NOTE | 2017-05-27 16:23 | PN ---
PROGRESS NOTE DATE OF SERVICE: 05/27/17. PRESENTING COMPLAINT: Short of breath. INTERVAL HISTORY: This patient presented with COPD exacerbation. Also had some chest pressure. The patient did have a troponin leak. Breathing is getting better. REVIEW OF SYSTEMS: Done for constitutional, cardiovascular, GI, pulmonary; relevant findings as above. CURRENT MEDICATIONS: Include IV Solu-Medrol, DuoNeb. Lopressor has been added by Cardiology. PHYSICAL EXAMINATION: Temperature 97.7, pulse 80, respiratory 18, blood pressure 127/62, pulse ox 95% on room air. GENERAL APPEARANCE: Sitting up, looking better. EYES: Pupils equal. Conjunctivae normal. HEENT: External nose and ears normal. Oral cavity normal. NECK: JVD not raised. Mass not palpable. RESPIRATORY: Effort increased. Lungs, decreased breath sounds. Decreased wheezing. CARDIOVASCULAR: 1st and 2nd sounds, no edema. ABDOMEN: Soft, nontender. Liver and spleen not palpable. PSYCHIATRY: Alert and oriented x3. Mood and affect is normal. INVESTIGATIONS: LDL is 81. Troponin 0.031, 0.085, 0.084. 2D echo, moderate concentric LVH and EF 55- 60%. ASSESSMENT: 1. Acute chronic obstructive pulmonary disease exacerbation in a current smoker, improving. 2. Essential hypertension. 3. Primary osteoarthritis of multiple joints. 4. Chronic left foot drop. 5. Obstructive sleep apnea, has not been using CPAP. 6. Chronic nicotine dependence. Patient is a cigarette smoker. 7. Pulmonary embolism ruled out. 8. Concern for underlying ischemic heart disease. Given somewhat of the presentation and troponin leak, patient definitely shows a high risk for underlying coronary artery disease. PLAN: I discussed with the patient. The patient is agreeable for a stress test tomorrow. We will switch the patient over to oral prednisone. I did speak to Hina/GALLERY OR MUSEUM CURATOR from cardiology for a stress test for tomorrow. The patient will be made n.p.o. after midnight. MMODL / IJN: [id number] /
[2017-05-28] MEDS ORDERED: predniSONE 20 MG TAB PO SCH (09:00)
[2017-05-28] MEDS: METOPROLOL TARTRATE 25 MG TAB PO SCH (09:34)
[2017-05-28] MEDS: NICOTINE 7MG/24HR PATCH TRANSDERM SCH (09:50)
[2017-05-28] MEDS: cloNIDine HCL 0.1 MG TAB PO SCH (09:50)
[2017-05-28] MEDS: ASPIRIN 81 MG PO SCH (09:50)
[2017-05-28] MEDS: IPRATROPIUM-ALBUTEROL 3 ML NEB INHALATION SCH ×3 (10:28→15:19)
[2017-05-28] MEDS ORDERED: DOBUTamine DRIP for NUC MED 250 MG in DEXTROSE/WATER 1 250ML.BAG IV ONE (11:30)
[2017-05-28] MEDS ORDERED: SODIUM CHLORIDE 0.9% 1,000 ML in EMPTY BAG 1 BAG IV ONE (11:59)
[2017-05-28] MEDS ORDERED: LIDOCAINE 2% INJ 20 MG/ML (20 ML MDV) ONE (12:47)
[2017-05-28] MEDS ORDERED: MIDAZOLAM 2 MG/2 ML VIAL ONE (12:51)
[2017-05-28] MEDS ORDERED: fentaNYL (PF) 50 MCG/ML 2 ML AMP ONE (12:52)
[2017-05-28] MEDS ORDERED: LIDOCAINE 2% INJ 20 MG/ML SQ ONE (12:54)
[2017-05-28] MEDS ORDERED: SODIUM CHLORIDE 0.9% 1,000 ML IV ONE (12:55)
[2017-05-28] MEDS ORDERED: MIDAZOLAM 2 MG/2 ML VIAL IV ONE (12:55)
[2017-05-28] MEDS ORDERED: fentaNYL (PF) 50 MCG/ML 2 ML AMP IV ONE (12:55)
--- NOTE | 2017-05-28 12:57 | PN ---
PROGRESS NOTE Rony is a 72-year-old gentleman who is admitted to hospital with symptoms of COPD exacerbation and had mild elevation of his troponin. His peak troponin was 0.08. EKG did not reveal acute ischemic changes. The echocardiogram showed mild LV systolic dysfunction, which is chronic, was seen on an echocardiogram done last year. There is mild hypokinesis involving basal inferior wall, which again was noted on the previous echo. We performed a dobutamine echo on him with peak dobutamine infusion, there seemed to be worsening of the baseline wall motion in the inferior wall. I reviewed this information with the patient and advised him to undergo cardiac catheterization for further evaluation. I do not believe his clinical presentation is related to an acute ischemic syndrome, but given the baseline LV dysfunction and Effexor and dobutamine induced wall motion abnormality, we will go ahead and will perform a cardiac catheterization for definitive diagnosis. I explained risks, benefits and alternatives. He understood and accepted. YENIFER / GONZALES: [id number] /
[2017-05-28] MEDS ORDERED: IOPAMIDOL-370 125ML BTL INJ ONE (13:04)
[2017-05-28] MEDS ORDERED: RX INFO: IV CONTRAST WAS GIVEN 1 EACH MISC MISCELLANE PRN (13:10)
[2017-05-28] MEDS ORDERED: ATORVASTATIN 40 MG TAB PO SCH (13:15)
--- NOTE | 2017-05-28 13:57 | ECHOS ---
STRESS ECHOCARDIOGRAM INDICATIONS: Chest pain. BASELINE HEART RATE: 64 BASELINE BLOOD PRESSURE: 94/67 MAXIMUM HEART RATE: 129 MAXIMUM BLOOD PRESSURE: 212/70 85% MPHR: 124 100% MPHR: 146 MAXIMUM STAGE REACHED: 3 TOTAL EXERCISE TIME: 9:00 CLINICAL INFORMATION: Baseline EKG shows sinus rhythm, poor R-wave progression, frequent PVCs. Patient was given intravenous dobutamine over a period of 9 minutes as per protocol. Did not have chest pain or diagnostic ST-segment depression. He had frequent PVCs. Baseline echo shows normal left ventricular size, mild LV dysfunction, hypokinesis involving basal inferior wall. Post dobutamine infusion, there is mild worsening of the basal inferior wall motion. CONCLUSION: 1. Inconclusive EKG part of the stress test due to baseline EKG abnormalities. 2. Abnormal dobutamine echo showing dobutamine induced wall motion abnormality involving basal inferior wall. MMOVIL / IJN: [id number] /
[2017-05-28 14:32] VITALS: TEMP 98.8
[2017-05-28 16:02] VITALS: BP 122/64; PULSE 64
[2017-05-28] MEDS: MAGNESIUM SULFATE-D5W PMX 1 GM in DEXTROSE/WATER 1 100ML.BAG IVPB SCH ×2 (16:44→18:01)
--- NOTE | 2017-05-28 17:10 | P.PN ---
Subjective Progress Note Date: 05/28/17 Principal diagnosis: Acute exacerbation of chronic obstructive pulmonary disease. Chest pain with troponin leak. 72-year-old male patient with known history of COPD with a baseline FEV1 of 75% of predicted maintained on Spiriva on outpatient basis. His last COPD exacerbation was approximately 2 years ago and at that time the patient was briefly hospitalized and he was discharged home. He continued to smoke 1 pack of cigarettes a day. He was doing good without any major medical problems and comorbidities. Yesterday the patient acutely became more short of breath. He felt he was having excessive chest congestion and he had increased dyspnea wheezing. He started using his Ventolin rescue inhaler more frequently. Ultimately he decided to come into the hospital for further care. He had no fever or chills. He had no pleurisy. No hemoptysis. His white cell count was at 7.9. Rest of the blood work and electrodes were all within normal limits. He did have over some troponin leak with troponin level of 0.031 and 0.08 respectively. The patient was seen by cardiology. Echocardiogram has been ordered. The EKG showed a normal sinus rhythm with occasional PVCs. Echocardiac Allen showed a moderate concentric left ventricular hypertrophy and an ejection fraction of 55-60% and there is no other valvular abnormalities noted. CT angios the chest was also done that showed no evidence of any pulmonary embolism. There is some limited elevation of the right hemidiaphragm. There is also pulmonary scarring/atelectasis along the right middle lobe. No other major abnormalities were noted. Clinically the patient is feeling better. Less short of breath bronchospastic and wheezy on today's evaluation. No swelling lower extremities pain no 70 DVTs or pulmonary embolism. No other complaints otherwise. The patient is seen again today 05/28/2017 in follow-up on the selective care unit. He had undergone stress testing earlier today that revealed wall motion abnormality involving the basal inferior wall.. He was subsequently recommended cardiac catheterization which was performed but did not reveal any significant coronary artery stenosis. He is currently resting quite comfortably in bed. He denies any worsening shortness of breath, cough or congestion. No chest pain, palpitations lightheadedness or dizziness. He is maintaining good O2 saturations in the 90s on room air. He is hemodynamically stable. Objective - Vital Signs Vital signs: Vital Signs Temp 98.8 F 05/28/17 14:30 Pulse 64 04/18/18 15:58 Resp 18 05/28/17 15:58 BP 122/64 05/28/17 15:58 Pulse Ox 94 L 05/28/17 15:58 Intake & Output 05/27/17 05/28/17 05/28/17 18:59 06:59 18:59 Intake Total 600 175 Output Total 200 Balance 600 -25 Weight 102 kg Intake: IV 175 Sodium Chloride 0.9% 1, 75 000 ml @ 75 mls/hr IV . [id number] ANITA Rx#:[id number] Intake, IV Titration 600 Amount Sodium Chloride 0.9% 1, 600 000 ml @ 75 mls/hr IV . [id number] ANITA Rx#:[id number] Output: Urine 200 Other: Voiding Method Toilet # Voids 3 2 - Exam The patient appeared well nourished and normally developed. Vital signs as documented. Head exam is unremarkable. No scleral icterus or corneal arcus noted. Neck is without jugular venous distension, thyromegaly, or carotid bruits. Carotid upstrokes are brisk bilaterally. Lungs are diminished breath sounds bilaterally along with prolongation of expiratory phase of breathing and scattered expiratory wheezes heard throughout the lung his bilaterally. Cardiac exam reveals the PMI to be normally sized and situated. Rhythm is regular. First and second heart sounds normal. No murmurs, rubs or gallops. Abdominal exam reveals normal bowel sounds, no masses, no organomegaly and no aortic enlargement. Extremities are nonedematous and both femoral and pedal pulses are normal. Neurologically patient is awake and alert and there is no focal neurological deficit.Examination of the skin revealed no evidence of significant rashes, suspicious appearing nevi or other concerning lesions. - Labs CBC & Chem 7: 05/26/17 09:30 05/26/17 09:30 Labs: Microbiology - Last 24 Hours (Table) 05/26/17 09:30 Blood Culture - Preliminary Blood No Growth after 48 hours Assessment and Plan Assessment: Assessment 1 acute COPD exacerbation with secondary shortness of breath 2 COPD mild in severity with a baseline FEV1 of 75% of predicted 3 acute bronchitis 4 chronic elevation of right hemidiaphragm 5 smoker 6 troponin leak and there was no significant coronary artery stenosis per cardiac catheterization performed today. Echo of the heart is within normal limits. EKG is also within normal limits. Rule out acute non-ST segment elevation myocardial infarction 7 preserved LV function without any valvular abnormalities on today's echocardiogram 8 degenerative arthritis 9 hypertension Plan: The patient was seen and evaluated by Dr. Olmos. He has recovered from his COPD exacerbation. He did undergo stress testing with subsequent cardiac catheterization that revealed no significant obstructive coronary artery disease. The plan is for discharge home later today. He is again educated regarding the importance of complete smoking cessation. A NicoDerm patch has been applied. We will continue prednisone taper. Continue Spiriva and Ventolin. He would benefit from a follow-up office visit where he can undergo full pulmonary function testing to evaluate the severity of his COPD and make further recommendations regarding maintenance medications. I, the cosigning physician, performed a history & physical examination of the patient. Lungs sounds are clear. Maintaining good O2 saturations in the 90s on room air. I discussed the assessment and plan of care with my nurse practitioner, Sandra Dejesus. I attest to the above note as dictated by her.
--- NOTE | 2017-05-28 23:45 | DS ---
DISCHARGE SUMMARY DATE OF ADMISSION: May 26, 2017. DATE OF DISCHARGE: May 28, 2017. FINAL DIAGNOSES: 1. Acute chronic obstructive pulmonary disease exacerbation in a current smoker. 2. Essential hypertension. 3. Primary osteoarthritis multiple joints. 4. Chronic left foot drop. 5. Obstructive sleep apnea does not use CPAP. 6. Chronic nicotine dependence, patient is a cigarette smoker. 7. Pulmonary embolism ruled out. 8. Mild nonobstructive coronary artery disease. PROCEDURE: Cardiac catheterization. CONSULTATION: Dr. Zeus Munson from Cardiology, Dr. Olmos from Pulmonary. HOSPITAL COURSE: This patient is a smoker, presented with shortness of breath. This is felt to be primarily COPD exacerbation. The patient did have a troponin leak and 2D echocardiogram showed EF of 45-50% and moderate concentric left ventricular hypertrophy. The patient did undergo dobutamine stress echocardiogram that shows some wall motion abnormality. Cardiac catheterization was done. I do not have the formal results. The patient is found to have some mild disease. The patient is counseled against smoking. EXAM: Lungs decreased breath sounds. Cardiovascular 1st and 2nd sounds normal. LDL was 81. DISCHARGE MEDICATIONS: 1. Ventolin HFA 1 or 2 puffs q.6 p.r.n. 2. Spiriva 1 capsule daily. 3. Aspirin 81 mg p.o. daily. 4. Lipitor 40 mg p.o. daily. 5. Zestoretic 11/21.5 one tab p.o. b.i.d. 6. Lopressor 25 p.o. b.i.d. 7. Nicotine patch. 8. Prednisone taper. FOLLOWUP: Follow up with Dr. Elizalde on June 03, 2017, Dr. Zeus Munson on 06/04/17. Dr. Olmos in one week. Discharge discussion and discharge planning more than [address] Elizalde. MMOVIL / IJN: [id number] /
--- NOTE | 2017-07-17 16:44 | CC ---
CARDIAC CATHETERIZATION REPORT INDICATION: Non ST-segment elevation FL. PROCEDURE NOTE: After obtaining informed consent, left heart catheterization and coronary angiogram are performed via the right femoral artery using standard Katherine catheters. The patient tolerated the procedure well without any obvious immediate complications. FINDINGS: 1. HEMODYNAMICS: Left ventricular end-diastolic pressure is 8 to 10 mm. There is no significant gradient across the aortic valve. 2. LEFT VENTRICULOGRAM: Left ventriculogram is not performed. 3. ANGIOGRAPHIC DATA: Left main coronary artery: Left main coronary artery is a normal-sized vessel and is free of stenosis. Divides into left anterior descending coronary artery and circumflex coronary artery. Circumflex coronary artery is free of significant stenosis. Proximal LAD appears normal. Mid LAD shows mild nonobstructive atherosclerotic plaque. Right coronary artery is free of significant disease. CONCLUSIONS: Mild nonobstructive coronary artery disease. PLAN: Patient's angiographic data was reviewed with him and was advised optimal medical therapy. MMODL / IJN: [id number] /
== END 2017-05-28 19:13 | disposition home or self-care (01) | DRG 191 ==
LOC: EC 09:10 → 5MS5E 12:54 → 6SEL 05-28 13:20
PROVIDERS: ADMIT Hospitalist; ATTEND Hospitalist
PROC: 4A023N7 Measurement of Cardiac Sampling and Pressure, Left Heart, Percutaneous Approach (ICD-10-PCS; principal; 2017-05-26)
PROC: B2111ZZ Fluoroscopy of Multiple Coronary Arteries using Low Osmolar Contrast (ICD-10-PCS; 2017-05-26)
DX: J44.1 Chronic obstructive pulmonary disease with (acute) exacerbation (principal); E87.1 Hypo-osmolality and hyponatremia; J98.11 Atelectasis; I11.9 Hypertensive heart disease without heart failure; F17.210 Nicotine dependence, cigarettes, uncomplicated; G47.33 Obstructive sleep apnea (adult) (pediatric); I25.10 Atherosclerotic heart disease of native coronary artery without angina pectoris; R07.9 Chest pain, unspecified; I49.3 Ventricular premature depolarization; J20.9 Acute bronchitis, unspecified; J44.0 Chronic obstructive pulmonary disease with (acute) lower respiratory infection; M15.9 Polyosteoarthritis, unspecified; M21.372 Foot drop, left foot; R77.8 Other specified abnormalities of plasma proteins; M54.30 Sciatica, unspecified side; J98.6 Disorders of diaphragm; Z91.19 Patient's noncompliance with other medical treatment and regimen; Z87.442 Personal history of urinary calculi; Z79.899 Other long term (current) drug therapy; Z86.010 Personal history of colon polyps; Z71.6 Tobacco abuse counseling; Z98.42 Cataract extraction status, left eye; Z98.41 Cataract extraction status, right eye; Z96.1 Presence of intraocular lens; Z80.1 Family history of malignant neoplasm of trachea, bronchus and lung; Z80.0 Family history of malignant neoplasm of digestive organs; Z83.3 Family history of diabetes mellitus; Z84.89 Family history of other specified conditions
CPT/HCPCS: 36415; 71046; 71275; 80053; 80061; 82550; 82553; 83605; 83735; 83880; 84484; 85025; 85610; 85730; 87040; 87502; 93005; 93017; 93306; 93350; 93458; 94640; 94760; 96361; 96374; 99285

== ENCOUNTER → 2018-07-07 | Outpatient (CLI) | payer MEDICARE ==
--- NOTE | 2018-07-08 09:07 | P.ARTDOP ---
Arterial Doppler LOWER EXTREMITY ARTERIAL DOPPLER: DATE OF SERVICE: 07/07/2018 Reason for study: Claudication. Doppler waveforms: Multiphasic bilaterally throughout. Pulse volume recording: []. Pressure gradients: None. Ankle-brachial indices: Greater than 1 bilaterally. Toe pressures: [] on the right, [] on the left Impression: Normal study.
== END | disposition home or self-care (01) ==
LOC: RADUSWWP 13:43
PROVIDERS: ATTEND Family Medicine
DX: I73.9 Peripheral vascular disease, unspecified (principal)
CPT/HCPCS: 93922

== ENCOUNTER 2019-02-18 10:17 | Inpatient (IN) | payer MEDICARE ==
[2019-02-18] MEDS ORDERED: IPRATROPIUM 0.5 MG/2.5 ML NEBU INHALATION STA (11:06)
[2019-02-18] MEDS ORDERED: methylPREDNISolone SOD SUCCI 125 MG/2 ML VIAL IV STA (11:06)
[2019-02-18] MEDS ORDERED: ALBUTEROL NEBULIZED 2.5 MG/3 ML INHALATION STA (11:06)
--- NOTE | 2019-02-18 11:11 | ED ---
General Adult HPI - General Chief complaint: Shortness of Breath Stated complaint: COPD Time Seen by Provider: 02/18/19 10:30 Source: patient, RN notes reviewed, old records reviewed Mode of arrival: ambulatory Limitations: no limitations - History of Present Illness Initial comments: This is a 73-year-old male who presents emergency department with past medical history significant for COPD. Patient also states she's on Coumadin for redness in his legs but never had a clot. He also states he may have had atrial fibrillation high school but is not sure. Patient's never been told he said A. fib since then. Patient states the shortness of breath is increased over the last week and a half is getting progressively worse to the point where he needed to come in today. Patient states she's had some chest tightness but no chest pressure or pain. Patient denies any fever chills per patient states he doesn't have any more of a cough than normal. Patient denies any lightheadedness or dizziness per patient denies any swelling to legs or calf tenderness. Patient denies any abdominal pain patient denies nausea vomiting diarrhea. - Related Data Home Medications Medication Instructions Recorded Confirmed Albuterol Inhaler [Ventolin Hfa 2 puff INHALATION RT-Q6H PRN 05/26/17 02/18/19 Inhaler] Ascorbic Acid [Vitamin C] 500 mg PO DAILY 02/18/19 02/18/19 Atorvastatin [Lipitor] 20 mg PO HS 02/18/19 02/18/19 Budesonide/Formoterol Fumarate 2 puff INHALATION RT-BID 02/18/19 02/18/19 [Symbicort 160-4.5 Mcg Inhaler] Cholecalciferol [Vitamin D3 (25 1,000 unit PO DAILY 02/18/19 02/18/19 Mcg = 1000 Iu)] Ipratropium Nebulized [Atrovent 0.5 mg INHALATION RT-Q6H PRN 02/18/19 02/18/19 Nebulized 0.2 MG/ML] Rivaroxaban [Xarelto] 2.5 mg PO BID 02/18/19 02/18/19 Vitamin B Complex 1 cap PO DAILY 02/18/19 02/18/19 Vitamin E 1,000 unit PO DAILY 02/18/19 02/18/19 traZODone HCL 150 mg PO HS 02/18/19 02/18/19 Allergies Allergy/AdvReac Type Severity Reaction Status Date / Time No Known Allergies Allergy Verified 02/18/19 11:20 Review of Systems ROS Statement: Those systems with pertinent positive or pertinent negative responses have been documented in the HPI. ROS Other: All systems not noted in ROS Statement are negative. Past Medical History Past Medical History: COPD, GI Bleed, Hypertension, Osteoarthritis (OA), Renal Disease, Sleep Apnea/CPAP/BIPAP Additional Past Medical History / Comment(s): Nephrolithiasis (3 stones), arthritis bilateral hands/thumbs, PRUDENCIO without device, R knee "unhappy triadP, L foot drop d/t sciatica, lower GI bleed thought d/t contipation. History of Any Multi-Drug Resistant Organisms: None Reported Past Surgical History: Hernia Repair, Orthopedic Surgery, Tonsillectomy Additional Past Surgical History / Comment(s): RT KNEE SCOPE, BILATERAL CATARACTS with lens implants. COLONOSCOPY with benign polypectomy, 06/05/15 umb hernia and R ing. hernia repair Past Anesthesia/Blood Transfusion Reactions: No Reported Reaction Past Psychological History: No Psychological Hx Reported Smoking Status: Current some day smoker - Past Family History Sister(s) Family Medical History: Cancer Father Family Medical History: Cancer Additional Family Medical History / Comment(s): Father had lung and colon cancer. He had cirrhosis. He just before his 80th birthday. He was a nonsmoker and a nondrinker. Mother Family Medical History: Diabetes Mellitus Additional Family Medical History / Comment(s): Mother was overweight. She at age 87 yrs. General Exam - General Exam Comments Initial Comments: GENERAL: Patient is well-developed and well-nourished. Patient is nontoxic and well-hydrated and is in mild distress. ENT: Neck is soft and supple. No significant lymphadenopathy is noted. Oropharynx is clear. Moist mucous membranes. Neck has full range of motion without eliciting any pain. EYES: The sclera were anicteric and conjunctiva were pink and moist. Extraocular movements were intact and pupils were equal round and reactive to light. Eyelids were unremarkable. PULMONARY: Patient has diffuse expiratory wheezing. CARDIOVASCULAR: There is a regular rate and rhythm without any murmurs gallops or rubs. ABDOMEN: Soft and nontender with normal bowel sounds. SKIN: Skin is clear with no lesions or rashes and otherwise unremarkable. NEUROLOGIC: Patient is alert and oriented x3. Cranial nerves II through XII are grossly intact. Motor and sensory are also intact. Normal speech, volume and content. Symmetrical smile. MUSCULOSKELETAL: Normal extremities with adequate strength and full range of motion. No lower extremity swelling or edema. No calf tenderness. LYMPHATICS: No significant lymphadenopathy is noted PSYCHIATRIC: Normal psychiatric evaluation. Limitations: no limitations Course Vital Signs 02/18/19 02/18/19 02/18/19 10:26 10:57 11:18 Temperature 97.7 F Pulse Rate 132 H 113 H Respiratory 26 H 20 Rate Blood Pressure 142/97 O2 Sat by Pulse 90 L Oximetry 02/18/19 02/18/19 02/18/19 11:38 11:41 12:14 Temperature Pulse Rate 116 H 116 H 114 H Respiratory 20 Rate Blood Pressure 143/018 145/106 O2 Sat by Pulse 94 L 93 L Oximetry Medical Decision Making - Medical Decision Making EKG shows atrial flutter with a 2-1 block with multiple PVCs. At a rate of 122 bpm QRS 116 QT interval 362 QTC is 5:15. Patient's EKG shows no ST segment elevation or depression. Chest x-ray shows new pleural effusion on the right. I will back into reevaluate the patient after he got a breathing treatment she was feeling little bit better but not to his baseline. Patient's EKG showed atrial flutter never seen this on a previous EKG and I looked at 3 previous EKGs. Patient states she's not ever heard of atrial flutter in the past. Spoke with Dr. Beth he agreed to admit the patient admitted the patient I consult cardiology. - Lab Data Result diagrams: 02/18/19 10:54 02/18/19 10:54 Lab Results 02/18/19 02/18/19 02/18/19 Range/Units 10:54 10:54 10:54 WBC 6.6 (3.8-10.6) k/uL RBC 4.17 L (4.30-5.90) m/uL Hgb 14.2 (13.0-17.5) gm/dL Hct 42.1 (39.0-53.0) % MCV 101.1 H (80.0-100.0) fL MCH 34.0 (25.0-35.0) pg MCHC 33.6 (31.0-37.0) g/dL RDW 13.0 (11.5-15.5) % Plt Count 192 (150-450) k/uL Neutrophils % 79 % Lymphocytes % 11 % Monocytes % 5 % Eosinophils % 3 % Basophils % 1 % Neutrophils # 5.2 (1.3-7.7) k/uL Lymphocytes # 0.7 L (1.0-4.8) k/uL Monocytes # 0.3 (0-1.0) k/uL Eosinophils # 0.2 (0-0.7) k/uL Basophils # 0.1 (0-0.2) k/uL PT 11.4 (9.0-12.0) sec INR 1.1 (<1.2) APTT 27.5 (22.0-30.0) sec Sodium 140 (137-145) mmol/L Potassium 3.9 (3.5-5.1) mmol/L Chloride 106 (98-107) mmol/L Carbon Dioxide 22 (22-30) mmol/L Anion Gap 12 mmol/L BUN 16 (9-20) mg/dL Creatinine 1.19 (0.66-1.25) mg/dL Est GFR (CKD-EPI)AfAm 69 (>60 ml/min/1.73 sqM) Est GFR (CKD-EPI)NonAf 60 (>60 ml/min/1.73 sqM) Glucose 107 H (74-99) mg/dL Calcium 9.1 (8.4-10.2) mg/dL Magnesium 1.7 (1.6-2.3) mg/dL Total Bilirubin 1.7 H (0.2-1.3) mg/dL AST 24 (17-59) U/L ALT 12 (4-49) U/L Alkaline Phosphatase 101 (38-126) U/L Troponin I (0.000-0.034) ng/mL Total Protein 7.2 (6.3-8.2) g/dL Albumin 4.0 (3.5-5.0) g/dL 02/18/19 Range/Units 10:54 WBC (3.8-10.6) k/uL RBC (4.30-5.90) m/uL Hgb (13.0-17.5) gm/dL Hct (39.0-53.0) % MCV (80.0-100.0) fL MCH (25.0-35.0) pg MCHC (31.0-37.0) g/dL RDW (11.5-15.5) % Plt Count (150-450) k/uL Neutrophils % % Lymphocytes % % Monocytes % % Eosinophils % % Basophils % % Neutrophils # (1.3-7.7) k/uL Lymphocytes # (1.0-4.8) k/uL Monocytes # (0-1.0) k/uL Eosinophils # (0-0.7) k/uL Basophils # (0-0.2) k/uL PT (9.0-12.0) sec INR (<1.2) APTT (22.0-30.0) sec Sodium (137-145) mmol/L Potassium (3.5-5.1) mmol/L Chloride (98-107) mmol/L Carbon Dioxide (22-30) mmol/L Anion Gap mmol/L BUN (9-20) mg/dL Creatinine (0.66-1.25) mg/dL Est GFR (CKD-EPI)AfAm (>60 ml/min/1.73 sqM) Est GFR (CKD-EPI)NonAf (>60 ml/min/1.73 sqM) Glucose (74-99) mg/dL Calcium (8.4-10.2) mg/dL Magnesium (1.6-2.3) mg/dL Total Bilirubin (0.2-1.3) mg/dL AST (17-59) U/L ALT (4-49) U/L Alkaline Phosphatase (38-126) U/L Troponin I 0.032 (0.000-0.034) ng/mL Total Protein (6.3-8.2) g/dL Albumin (3.5-5.0) g/dL Disposition Clinical Impression: Asthma exacerbation in COPD, Atrial fibrillation with rapid ventricular response Disposition: ADMITTED IP TO THIS HOSP Referrals: Andrew Elizalde MD [Primary Care Provider] - 1-2 days Time of Disposition: 12:32
[2019-02-18] MEDS ORDERED: DILTIAZEM DRIP BOLUS FROM BAG 1 MG SOLN IV ONE (11:12)
[2019-02-18 11:23] LABS: Basophils # (A) 0.1 k/uL (0-0.2); Basophils % (A) 1 %; Eosinophils # (A) 0.2 k/uL (0-0.7); Eosinophils % (A) 3 %; HCT 42.1 % (39.0-53.0); HGB 14.2 gm/dL (13.0-17.5); Lymphocytes # (A) 0.7 k/uL (1.0-4.8); Lymphocytes % (A) 11 %; MCHC 33.6 g/dL (31.0-37.0); MCV 101.1 fL (80.0-100.0); Mean Platelet Volume 7.5; Monocytes # (A) 0.3 k/uL (0-1.0); Monocytes % (A) 5 %; Neutrophils # (A) 5.2 k/uL (1.3-7.7); Neutrophils % (A) 79 %; Platelet Count 192 k/uL (150-450); RBC 4.17 m/uL (4.30-5.90); WBC 6.6 k/uL (3.8-10.6)
[2019-02-18 11:34] LABS: Calcium 9.1 mg/dL (8.4-10.2); Magnesium 1.7 mg/dL (1.6-2.3); Potassium 3.9 mmol/L (3.5-5.1); Total Bilirubin 1.7 mg/dL (0.2-1.3); Total Protein 7.2 g/dL (6.3-8.2)
[2019-02-18 11:35] LABS: INR 1.1 (<1.2); Partial Thromboplastin Time 27.5 sec (22.0-30.0); Prothrombin Time 11.4 sec (9.0-12.0)
[2019-02-18] MEDS: DILTIAZEM 125 MG in SODIUM CHLORIDE 0.9% 100 ML IV SCH ×2 (11:53→23:41)
--- NOTE | 2019-02-18 12:11 | XR ---
EXAMINATION TYPE: XR chest 2V DATE OF EXAM: 02/18/2019 COMPARISON: 05/26/2017 HISTORY: Dyspnea. History of COPD. TECHNIQUE: Frontal and lateral views of the chest are obtained. FINDINGS: Right basilar pulmonary nodules now obscured by a small right pleural effusion. Trace left pleural effusion is also noted. Right basilar consolidation and left basilar atelectasis are seen. C hronic interstitial prominence. Cardiomediastinal silhouette is within normal limits. Osseous structu res are intact with diffuse osseous demineralization and arthropathy of the right shoulder. IMPRESSION: New small right and trace left pleural effusions and right basilar airspace disease that may represent pneumonia or atelectasis. Right basilar airspace disease now obscures the known nodula r density at the right lung base.
[2019-02-18] MEDS: IPRATROPIUM-ALBUTEROL 3 ML NEB INHALATION PRN ×2 (16:35→20:39)
[2019-02-18] MEDS: methylPREDNISolone SOD SUCCI 125 MG/2 ML VIAL IV SCH ×2 (17:39→21:54)
[2019-02-18] MEDS ORDERED: IPRATROPIUM 0.5 MG/2.5 ML NEBU INHALATION PRN (20:04)
[2019-02-18] MEDS ORDERED: ALBUTEROL INHALER 60 PUFF/8 GM INHALER INHALATION PRN (20:04)
[2019-02-18] MEDS: ATORVASTATIN 20 MG TAB PO SCH (21:55)
[2019-02-18] MEDS: traZODone HCL 50 MG TAB PO SCH (21:55)
[2019-02-18] MEDS: RIVAROXABAN 2.5 MG TABLET PO SCH (21:55)
[2019-02-19] MEDS: methylPREDNISolone SOD SUCCI 125 MG/2 ML VIAL IV SCH ×3 (06:35→17:15)
[2019-02-19] MEDS: SYMBICORT 160-4.5 MCG INHALER INHALATION SCH ×2 (07:09→19:06)
[2019-02-19] MEDS: IPRATROPIUM-ALBUTEROL 3 ML NEB INHALATION PRN ×2 (07:10→11:11)
[2019-02-19] MEDS: INSULIN ASPART (NovoLOG) 100 UNIT/ML VIAL SQ SCH ×4 (07:56→20:19)
[2019-02-19] MEDS: NON FORMULARY DRUG (Vitamin B Complex [Vitamin B Complex] 1 CAP) PO SCH (07:58)
[2019-02-19] MEDS: RIVAROXABAN 2.5 MG TABLET PO SCH (08:06)
[2019-02-19] MEDS: CHOLECALCIFEROL 1,000 UNIT TAB PO SCH (08:06)
[2019-02-19] MEDS: ASCORBIC ACID 500 MG TAB PO SCH (08:06)
[2019-02-19] MEDS: VITAMIN E (DL,TOCOPHERYL ACET) 400 UNIT CAP PO SCH (08:06)
[2019-02-19] MEDS ORDERED: RIVAROXABAN 15 MG TAB PO STA (09:25)
[2019-02-19] MEDS: METOPROLOL TARTRATE 50 MG TAB PO SCH ×2 (09:40→20:19)
--- NOTE | 2019-02-19 11:33 | CONS ---
CONSULTATION Mr. Rony Hightower is a 73-year-old gentleman who smokes more than 1 pack daily, has a known history of hypertension and hypercholesterolemia. Sees Dr. Elizalde in the outpatient setting. He had some swelling of lower extremities, had a DVT on 2 occasions in the last 3-4 weeks, which was negative, but Dr. Elizalde put him on 2.5 mg Xarelto b.i.d. He came into the hospital mainly with complaints of increasing shortness of breath that has been going on for a few days. He said he quit smoking for a week, but used to smoke before. He was also initially on Coumadin before I believe, the details are unclear. On reviewing the chart, it appears that he has atrial fibrillation. His arrival to the ER here was mainly with increasing shortness of breath but did not have any clear-cut chest discomfort. At the time of my evaluation, he is resting comfortably. Denies any chest pain, shortness of breath. He remains in what seems to be an atrial fibrillation. On arrival, he was in atrial fibrillation with moderate ventricular rate, isolated PVCs. Nonspecific ST-T changes. Patient was seen and evaluated by Dr. Munson in May of 2017. At that time he had an abnormal dobutamine stress test. Cardiac cath did not reveal any significant obstructive CAD and he was asked to follow up but he has not followed up in our office. Unfortunately, he continues to smoke and has not made serious efforts to quit smoking. PAST MEDICAL HISTORY: 1. Admission to the hospital with chest pain and abnormal dobutamine stress test in May 2017 with unremarkable cardiac cath. 2. Hypertension. 3. Hyperlipidemia. 4. Smoking and COPD. 5. Sleep apnea, uses a CPAP. He also has kidney stones and is status post some orthopedic surgery and hernia repair. ALLERGIES: None. MEDICATIONS: Include albuterol inhaler, vitamin supplements, atorvastatin 20 mg daily. He takes some vitamin supplements, Xarelto 2.5 mg b.i.d. and trazodone. PHYSICAL EXAMINATION: Blood pressure is 130/80, pulse rate is about 80 per minute irregular, in atrial fibrillation. HEENT: Unremarkable. Fundus was not examined by me. NECK: Supple, there is JVD of 1 cm. No carotid bruit. HEART: Exam reveals S1, S2 heard normally with irregular rate and rhythm. There is a systolic murmur that is audible but soft. LUNGS: Reveal bilateral scattered expiratory rhonchi. ABDOMEN: Soft, nontender. LOWER EXTREMITIES: Reveal diminished pulses with the left lower extremity have some trace edema. CENTRAL NERVOUS SYSTEM: Normal. EKG revealed atrial fibrillation, moderately rapid ventricular rate, nonspecific ST-T changes. IMPRESSION: 1. Atrial fibrillation, new onset with rapid ventricular rate. 2. Exacerbation of chronic obstructive pulmonary disease in a smoker. 3. Hypertension. 4. Hyperlipidemia. RECOMMENDATION: I am recommending Lopressor 50 mg b.i.d., discontinue IV Cardizem, discontinue the low dose of Xarelto and start him on 20 mg daily for atrial fibrillation and veterans' counselor him regarding the need to quit smoking. Based on his clinical course, will make further recommendations. Prognosis remains guarded. MMODL / IJN: [id number] /
[2019-02-19 12:14] LABS: Glucose,Whole Blood 159 mg/dL (75-99)
[2019-02-19] MEDS ORDERED: RX INFO: IV CONTRAST WAS GIVEN 1 EACH MISC MISCELLANE PRN (14:30)
--- NOTE | 2019-02-19 14:30 | P.CNPUL ---
History of Present Illness Consult date: 02/19/19 Reason for consult: dyspnea, COPD History of present illness: 73-year-old male patient known to me because of a history of COPD. The patient was Hospital as back in 2018 for an acute COPD exacerbation and back then it took care of him here in the hospital. He is coming in for increased cough and shortness of breath and chest congestion and soreness. In the ED was found to have also atrial flutter. He was hospitalized in the chest x-ray was done that showed another density in the right upper lobe, right lower lobe consolidation in addition to a right-sided pleural effusion. Left lung is clear. No hemoptysis. No pleurisy. He is currently on room air oxygen. He was Symbicort on outpatient basis and is currently off Spiriva using Ventolin necessary basis. No constitutional symptoms. No leg edema. No angina. Previous echocardiogram from 2092 showed a ejection fraction of 45%. Review of Systems Constitutional: Reports as per HPI Eyes: denies blurred vision, denies bulging eye, denies decreased vision Ears: deny: decreased hearing, ear discharge, earache Ears, nose, mouth and throat: Denies headache, Denies sore throat Cardiovascular: Reports decreased exercise tolerance, Reports dyspnea on exertion, Reports shortness of breath Respiratory: Reports cough, Reports dyspnea, Reports wheezing Gastrointestinal: Denies abdominal pain, Denies diarrhea, Denies nausea, Denies vomiting Genitourinary: Reports as per HPI Musculoskeletal: Reports as per HPI Musculoskeletal: absent: ankle pain, ankle stiffness, ankle swelling Integumentary: Denies pruritus, Denies rash Neurological: Denies numbness, Denies weakness Psychiatric: Denies anxiety, Denies depression Endocrine: Denies fatigue, Denies weight change Hematologic/Lymphatic: Reports as per HPI Allergic/Immunologic: Reports as per HPI Past Medical History Past Medical History: COPD, GI Bleed, Hypertension, Osteoarthritis (OA), Renal Disease, Sleep Apnea/CPAP/BIPAP Additional Past Medical History / Comment(s): COPD with an FEV1 of 75% of predicted, obstructive sleep apnea not utilizing any treatment, history of nephrolithiasis, 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 COLONOSCOPY with benign polypectomy, 06/05/15 umb hernia and R ing. hernia repair Past Anesthesia/Blood Transfusion Reactions: No Reported Reaction Past Psychological History: No Psychological Hx Reported Additional Psychological History / Comment(s): Pt lives alone. He is independent. He uses no assistive device. He drives. He has a dog. Smoking Status: Current some day smoker Past Alcohol Use History: Occasional Additional Past Alcohol Use History / Comment(s): Pt states he started smoking in 1975 and since 2016 has been a on and off smoker. A pack of cigarettes will last from 1-4 days. He states he drinks peppermint schnapps every couple days-a half glass. Past Drug Use History: None Reported - Past Family History Sister(s) Family Medical History: Cancer Father Family Medical History: Cancer Additional Family Medical History / Comment(s): Father had lung and colon cancer. He had cirrhosis. He just before his 80th birthday. He was a nonsmoker and a nondrinker. Mother Family Medical History: Diabetes Mellitus Additional Family Medical History / Comment(s): Mother was overweight. She at age 87 yrs. Medications and Allergies Home Medications Medication Instructions Recorded Confirmed Type Albuterol Inhaler [Ventolin Hfa 2 puff INHALATION RT-Q6H PRN 05/26/17 02/18/19 History Inhaler] Ascorbic Acid [Vitamin C] 500 mg PO DAILY 02/18/19 02/18/19 History Atorvastatin [Lipitor] 20 mg PO HS 02/18/19 02/18/19 History Budesonide/Formoterol Fumarate 2 puff INHALATION RT-BID 02/18/19 02/18/19 History [Symbicort 160-4.5 Mcg Inhaler] Cholecalciferol [Vitamin D3 (25 1,000 unit PO DAILY 02/18/19 02/18/19 History Mcg = 1000 Iu)] Ipratropium Nebulized [Atrovent 0.5 mg INHALATION RT-Q6H PRN 02/18/19 02/18/19 History Nebulized 0.2 MG/ML] Rivaroxaban [Xarelto] 2.5 mg PO BID 02/18/19 02/18/19 History Vitamin B Complex 1 cap PO DAILY 02/18/19 02/18/19 History Vitamin E 1,000 unit PO DAILY 02/18/19 02/18/19 History traZODone HCL 150 mg PO HS 02/18/19 02/18/19 History Allergies Allergy/AdvReac Type Severity Reaction Status Date / Time No Known Allergies Allergy Verified 02/18/19 11:20 Physical Exam Vitals: Vital Signs Temp Pulse Pulse Resp BP Pulse Ox 02/19/19 11:25 100 02/19/19 11:13 96 02/19/19 11:06 97.3 F L 93 18 127/94 90 L 02/19/19 08:00 97.6 F 83 18 133/83 92 L 02/19/19 07:28 94 02/19/19 07:13 90 92 L 02/19/19 04:00 97.0 F L 85 18 123/69 92 L 02/19/19 00:00 98.2 F 82 18 122/85 91 L 02/18/19 20:51 100 02/18/19 20:39 100 02/18/19 19:58 98.1 F 102 H 18 127/69 90 L 02/18/19 17:07 109 H 17 128/88 91 L 02/18/19 16:45 100 02/18/19 16:36 100 02/18/19 14:38 93 18 136/91 90 L Intake and Output 02/18/19 02/19/19 02/19/19 22:59 06:59 14:59 Intake Total 240 104.5 240 Balance 240 104.5 240 Intake: IV 60 0.9% NS 10ML/HR 40 Diltiazem 125 mg In 20 Sodium Chloride 0.9% 100 ml @ 5 MG/HR 5 mls/hr IV .Q24H [facility] Rx#:[id number] Intake, IV Titration 104.5 Amount Diltiazem 125 mg In 104.5 Sodium Chloride 0.9% 100 ml @ 5 MG/HR 5 mls/hr IV .Q24H [facility] Rx#:[id number] Oral 240 180 Other: Voiding Method Toilet Toilet Urinal Urinal # Voids 1 1 Weight 104.6 kg The patient appeared well nourished and normally developed. Vital signs as documented. Head exam is unremarkable. No scleral icterus or corneal arcus noted. Neck is without jugular venous distension, thyromegaly, or carotid bruits. Carotid upstrokes are brisk bilaterally. Lungs are diminished breath sounds bilaterally along with prolongation of expiratory phase of breathing and scattered expiratory wheezes heard throughout the lung his bilaterally. Cardiac exam reveals the PMI to be normally sized and situated. Rhythm is irregular. First and second heart sounds normal. No murmurs, rubs or gallops. Abdominal exam reveals normal bowel sounds, no masses, no organomegaly and no aortic enlargement. Extremities are nonedematous and both femoral and pedal pulses are normal. Neurologically patient is awake and alert and there is no focal neurological deficit.Examination of the skin revealed no evidence of significant rashes, suspicious appearing nevi or other concerning lesions. Results - Laboratory Findings CBC and BMP: 02/18/19 10:54 02/18/19 10:54 ABG WBC 6.6 k/uL (3.8-10.6) 02/18/19 10:54 RBC 4.17 m/uL (4.30-5.90) L 02/18/19 10:54 Hgb 14.2 gm/dL (13.0-17.5) 02/18/19 10:54 Hct 42.1 % (39.0-53.0) 02/18/19 10:54 MCV 101.1 fL (80.0-100.0) H 02/18/19 10:54 MCH 34.0 pg (25.0-35.0) 02/18/19 10:54 MCHC 33.6 g/dL (31.0-37.0) 02/18/19 10:54 RDW 13.0 % (11.5-15.5) 02/18/19 10:54 Plt Count 192 k/uL (150-450) 02/18/19 10:54 Neutrophils % 79 % 02/18/19 10:54 Lymphocytes % 11 % 02/18/19 10:54 Monocytes % 5 % 02/18/19 10:54 Eosinophils % 3 % 02/18/19 10:54 Basophils % 1 % 02/18/19 10:54 Neutrophils # 5.2 k/uL (1.3-7.7) 02/18/19 10:54 Lymphocytes # 0.7 k/uL (1.0-4.8) L 02/18/19 10:54 Monocytes # 0.3 k/uL (0-1.0) 02/18/19 10:54 Eosinophils # 0.2 k/uL (0-0.7) 02/18/19 10:54 Basophils # 0.1 k/uL (0-0.2) 02/18/19 10:54 PT 11.4 sec (9.0-12.0) 02/18/19 10:54 INR 1.1 (<1.2) 02/18/19 10:54 APTT 27.5 sec (22.0-30.0) 02/18/19 10:54 Sodium 140 mmol/L (137-145) 02/18/19 10:54 Potassium 3.9 mmol/L (3.5-5.1) 02/18/19 10:54 Chloride 106 mmol/L (98-107) 02/18/19 10:54 Carbon Dioxide 22 mmol/L (22-30) 02/18/19 10:54 Anion Gap 12 mmol/L 02/18/19 10:54 BUN 16 mg/dL (9-20) 02/18/19 10:54 Creatinine 1.19 mg/dL (0.66-1.25) 02/18/19 10:54 Est GFR (CKD-EPI)AfAm 69 (>60 ml/min/1.73 sqM) 02/18/19 10:54 Est GFR (CKD-EPI)NonAf 60 (>60 ml/min/1.73 sqM) 02/18/19 10:54 Glucose 107 mg/dL (74-99) H 02/18/19 10:54 POC Glucose (mg/dL) 159 mg/dL (75-99) H 02/19/19 12:12 POC Glu Social Staff Worker Karen Arana 02/19/19 12:12 Calcium 9.1 mg/dL (8.4-10.2) 02/18/19 10:54 Magnesium 1.7 mg/dL (1.6-2.3) 02/18/19 10:54 Total Bilirubin 1.7 mg/dL (0.2-1.3) H 02/18/19 10:54 AST 24 U/L (17-59) 02/18/19 10:54 ALT 12 U/L (4-49) 02/18/19 10:54 Alkaline Phosphatase 101 U/L (38-126) 02/18/19 10:54 Troponin I 0.032 ng/mL (0.000-0.034) 02/18/19 10:54 Total Protein 7.2 g/dL (6.3-8.2) 02/18/19 10:54 Albumin 4.0 g/dL (3.5-5.0) 02/18/19 10:54 PT/INR, D-dimer PT 11.4 sec (9.0-12.0) 02/18/19 10:54 INR 1.1 (<1.2) 02/18/19 10:54 Abnormal lab findings: Abnormal Labs 02/18/19 02/18/19 02/19/19 10:54 10:54 12:12 RBC 4.17 L MCV 101.1 H Lymphocytes # 0.7 L Glucose 107 H POC Glucose (mg/dL) 159 H Total Bilirubin 1.7 H - Diagnostic Findings Chest x-ray: image reviewed Assessment and Plan Plan: 1 acute COPD exacerbation with secondary shortness of breath, likely secondary to symptoms of an acute bronchitis. Nevertheless, the chest x-ray shows quite abnormalities with right lower lobe opacity, effusion and the right upper lobe density and I think based on his previous history of smoking he deserves a CAT scan to rule out any other abnormalities such as a malignancy. He is at a high risk of developing lung cancer. A CAT scan of the chest will be obtained. 2 COPD mild in severity with a baseline FEV1 of 75% of predicted 3 atrial flutter with controlled rate. Maintained on long-term and coagulation with Xarelto 4 CHF with mild systolic heart failure 5 degenerative arthritis 6 hypertension 7 obstructive sleep apnea not receiving any treatment 8 nephrolithiasis 9 history of foot drop on the left and history of sciatica 10 history of hemorrhoids and GI bleed Plan Agree on the current treatment Management of atrial fibrillation/flutter per cardiology Repeat echocardiogram CAT scan of the chest with contrast based on the above-mentioned abnormalities
--- NOTE | 2019-02-19 17:02 | CT ---
EXAMINATION TYPE: CT chest w con DATE OF EXAM: 02/19/2019 COMPARISON: 05/27/2017 HISTORY: History of mass and COPD. CT DLP: 575.8 mGycm Automated exposure control for dose reduction was used. CONTRAST: Performed with IV Contrast, patient injected with 100 mL of Isovue 300. There are mild to moderate bilateral pleural effusions. There is no pericardial effusion. There is in filtrate and atelectasis at both lung bases. There is right middle lobe atelectasis. There are no hil ar masses. There are a few paratracheal lymph nodes that measure up to 1.5 cm. Thoracic aorta shows n o aneurysm or dissection. There is atherosclerotic vascular calcification. There is coronary artery c alcification. There is multilevel mild spondylotic change in the thoracic spine. There is no compression fracture. I see no bony destructive process. There is mild diffuse pulmonary emphysema. I see no evidence of a pulmonary mass. There is evidence of some periportal edema. I see no filling defects in the pulmonary arteries. IMPRESSION: Compared to old exam there is appearance of bilateral pleural effusions with basilar mild infiltrates and atelectasis. Heart appears increased in size compared to old exam. Cardiac diameter is 16 cm and previous exam is 13 cm. This could relate to chronic congestive heart failure. No evidence of a pulm onary mass. There is increased mild paratracheal adenopathy compared to old exam of uncertain significance. Emphy sema. No evidence of pulmonary embolism. Atherosclerotic vascular disease. Mild periportal edema is nonspecific and could relate to heart failure or hepatitis.
[2019-02-19 17:12] LABS: Glucose,Whole Blood 136 mg/dL (75-99)
[2019-02-19 20:18] LABS: Glucose,Whole Blood 171 mg/dL (75-99)
[2019-02-19] MEDS: ATORVASTATIN 20 MG TAB PO SCH (20:19)
[2019-02-19] MEDS: traZODone HCL 50 MG TAB PO SCH (20:19)
[2019-02-19] MEDS ORDERED: FUROSEMIDE 10 MG/ML 4 ML VIAL IV SCH (21:51)
--- NOTE | 2019-02-19 22:00 | P.HPIM ---
History of Present Illness H&P Date: 02/19/19 Chief Complaint: Shortness of breath History of presenting complaint: This is a pleasant 73-year-old patient of Dr. montenegro. Chronic stable medical conditions include hypertension, Milly arthritis, chronic left foot drop, obstructive sleep apnea does not use CPAP, nonobstructed coronary artery disease per prior cardiac catheterization. For 10 days patient been having shortness of breath and wheezing cough clear warts phlegm. No fever or chills. Decreased appetite. Also notices hearts to be fluttering. Presented to the ER was found to be in atrial flutter fibrillation with a rapid ventricular rate. Was started on a Cardizem drip. Also felt to COPD exacerbation. Has some orthopnea. No fever no chills. Review of systems: GEN.: Tired EYES: None HEENT: None NECK: None RESPIRATORY: As above CARDIOVASCULAR: As above GASTROINTESTINAL: None GENITOURINARY: None MUSCULOSKELETAL: Joint pains LYMPHATICS: None HEMATOLOGICAL: None PSYCHIATRY: None NEUROLOGICAL: None Past medical history to include: Hypertension, Milly arthritis, left foot drop, obstructive sleep apnea does not use CPAP, nonobstructed coronary artery disease per cardiac catheterization, kid norberto stones, sciatica, hemorrhoids, Social history: Smoking a pack a day over 40 years. Lives alone. Drinks peppers smashed Every couple days. Physical examination: VITAL SIGNS: 97.7, 132, 26, 142/97, 90% room air GENERAL: BMI 29%, sitting at the edge of bed, a bit tired. EYES: Pupils equal. Conjunctiva normal. HEENT: External appearance of nose and ears normal, oral cavity grossly normal. NECK: JVD possibly raised; masses not palpable. HEART: Heart sounds irregular, minimal. LUNGS: Respiratory rate increased, some wheezing some crackles basals. ABDOMEN: Soft, nontender, liver spleen not palpable, no masses palpable. PSYCH: Alert and oriented x3; mood and affect normal. NEUROLOGICAL: Cranial nerves grossly intact; no facial asymmetry, power and sensation grossly intact. Left foot drop LYMPHATICS: No lymph nodes palpable in the axilla and neck. MUSCULOSKELETAL: Evidence of OA INVESTIGATIONS, reviewed in the clinical context: White count 6.6 hemoglobin 14.2 platelets 182 potassium 3.9 creatinine 1.19 EKG tracing personally reviewed by hi-atrial flutter fibrillation with a rapid ventricular rate Chest x-ray film personally reviewed by me-pulmonary edema with fluid in the fissure Assessment: -Atrial flutter fibrillation with a rapid ventricular rate, POA -Acute COPD exacerbation in a current smoker -Chronic nicotine dependence patient is an active cigarette smoker -Acute pulmonary edema, possibly related to uncontrolled heart rate from the arrhythmia clinic-primary Milly arthritis -Essential hypertension -Chronic left foot drop -Minimal coronary artery disease per prior cardiac catheterization Plan: Patient was started on IV Cardizem drip. Discontinue earlier today. Starting a beta rajiv. We'll give patient IV Lasix 40 mg 2 doses. We'll get a 2-D echocardiogram. Patient also on nebulized bronchodilators and IV steroids. Care was discussed with the patient. Questions were answered. Consultation was made to cardiology and pulmonary. Smoke cessation counseling: This was done with the patient. Nicotine patch is being given. More than 3 m inutes was spent for this Past Medical History Past Medical History: COPD, GI Bleed, Hypertension, Osteoarthritis (OA), Renal Disease, Sleep Apnea/CPAP/BIPAP Additional Past Medical History / Comment(s): Nephrolithiasis (3 stones), art hritis bilateral hands/thumbs, PRUDENCIO without device, R knee "unhappy triadP, L foot drop d/t sciatica, lower GI bleed thought d/t contipation. History of Any Multi-Drug Resistant Organisms: None Reported Past Surgical History: Hernia Repair, Orthopedic Surgery, Tonsillectomy Additional Past Surgical History / Comment(s): RT KNEE SCOPE, BILATERAL CATARACTS with lens implants. COLONOSCOPY with benign polypectomy, 06/05/15 umb hernia and R ing. hernia repair Past Anesthesia/Blood Transfusion Reactions: No Reported Reaction Past Psychological History: No Psychological Hx Reported Additional Psychological History / Comment(s): Pt lives alone. He is independent. He uses no assistive device. He drives. He has a dog. Smoking Status: Current some day smoker Past Alcohol Use History: Occasional Additional Past Alcohol Use History / Comment(s): Pt states he started smoking in 1975 and since 2016 has been a on and off smoker. A pack of cigarettes will last from 1-4 days. He states he drinks peppermint schnapps every couple days-a half glass. Past Drug Use History: None Reported - Past Family History Sister(s) Family Medical History: Cancer Father Family Medical History: Cancer Additional Family Medical History / Comment(s): Father had lung and colon cancer. He had cirrhosis. He just before his 80th birthday. He was a n onsmoker and a nondrinker. Mother Family Medical History: Diabetes Mellitus Additional Family Medical History / Comment(s): Mother was overweight. She at age 87 yrs. Medications and Allergies Home Medications Medication Instructions Recorded Confirmed Type Albuterol Inhaler [Ventolin Hfa 2 puff INHALATION RT-Q6H PRN 05/26/17 02/18/19 History Inhaler] Ascorbic Acid [Vitamin C] 500 mg PO DAILY 02/18/19 02/18/19 History Atorvastatin [Lipitor] 20 mg PO HS 02/18/19 02/18/19 History Budesonide/Formoterol Fumarate 2 puff INHALATION RT-BID 02/18/19 02/18/19 History [Symbicort 160-4.5 Mcg Inhaler] Cholecalciferol [Vitamin D3 (25 1,000 unit PO DAILY 02/18/19 02/18/19 History Mcg = 1000 Iu)] Ipratropium Nebulized [Atrovent 0.5 mg INHALATION RT-Q6H PRN 02/18/19 02/18/19 History Nebulized 0.2 MG/ML] Rivaroxaban [Xarelto] 2.5 mg PO BID 02/18/19 02/18/19 History Vitamin B Complex 1 cap PO DAILY 02/18/19 02/18/19 History Vitamin E 1,000 unit PO DAILY 02/18/19 02/18/19 History traZODone HCL 150 mg PO HS 02/18/19 02/18/19 History Allergies Allergy/AdvReac Type Severity Reaction Status Date / Time No Known Allergies Allergy Verified 02/18/19 11:20 Physical Exam Vitals: Vital Signs Temp Pulse Pulse Resp BP BP Pulse Ox 02/19/19 08:00 97.6 F 83 18 133/83 92 L 02/19/19 07:28 94 02/19/19 07:13 90 92 L 02/19/19 04:00 97.0 F L 85 18 123/69 92 L 02/19/19 00:00 98.2 F 82 18 122/85 91 L 02/18/19 20:51 100 02/18/19 20:39 100 02/18/19 19:58 98.1 F 102 H 18 127/69 90 L 02/18/19 17:07 109 H 17 128/88 91 L 02/18/19 16:45 100 02/18/19 16:36 100 02/18/19 14:38 93 18 136/91 90 L 02/18/19 13:14 109 H 18 144/114 94 L 02/18/19 12:42 98.7 F 110 H 20 143/101 93 L 02/18/19 12:14 114 H 145/106 93 L 02/18/19 11:41 116 H 20 143/018 94 L 02/18/19 11:38 116 H 02/18/19 11:18 113 H 02/18/19 10:57 20 02/18/19 10:26 97.7 F 132 H 26 H 142/97 90 L Intake and Output 02/18/19 02/19/19 02/19/19 22:59 06:59 14:59 Intake Total 240 104.5 180 Balance 240 104.5 180 Intake: Intake, IV Titration 104.5 Amount Diltiazem 125 mg In 104.5 Sodium Chloride 0.9% 100 ml @ 5 MG/HR 5 mls/hr IV .Q24H [facility] Rx#:[id number] Oral 240 180 Other: Voiding Method Toilet Toilet Urinal Urinal # Voids 1 1 Weight 104.6 kg Results CBC & Chem 7: 02/18/19 10:54 02/18/19 10:54 Labs: Abnormal Lab Results - Last 24 Hours (Table) 02/18/19 02/18/19 Range/Units 10:54 10:54 RBC 4.17 L (4.30-5.90) m/uL MCV 101.1 H (80.0-100.0) fL Lymphocytes # 0.7 L (1.0-4.8) k/uL Glucose 107 H (74-99) mg/dL Total Bilirubin 1.7 H (0.2-1.3) mg/dL Thrombosis Risk Factor Assmnt - Choose All That Apply Any of the Below Risk Factors Present?: Yes Each Factor Represents 1 point: Abnormal pulmonary function (COPD) Other Risk Factors: Yes Each Risk Factor Represents 3 Points: Age 75 years or older Thrombosis Risk Factor Assessment Total Risk Factor Score: 4 Thrombosis Risk Factor Assessment Level: Moderate Risk
[2019-02-19] MEDS: NICOTINE 21MG/24HR PATCH TRANSDERM SCH (22:42)
[2019-02-19] MEDS: methylPREDNISolone SOD SUCCI 40 MG/ML 1 ML VIAL IV SCH (22:45)
[2019-02-20] MEDS ORDERED: FUROSEMIDE 10 MG/ML 4 ML VIAL IV SCH (06:00)
[2019-02-20 06:23] LABS: Glucose,Whole Blood 141 mg/dL (75-99)
[2019-02-20] MEDS: INSULIN ASPART (NovoLOG) 100 UNIT/ML VIAL SQ SCH ×4 (06:41→20:27)
[2019-02-20 06:48] LABS: Calcium 9.1 mg/dL (8.4-10.2); Potassium 4.8 mmol/L (3.5-5.1)
[2019-02-20] MEDS: IPRATROPIUM-ALBUTEROL 3 ML NEB INHALATION PRN ×4 (07:41→20:23)
[2019-02-20] MEDS: SYMBICORT 160-4.5 MCG INHALER INHALATION SCH ×2 (07:41→20:23)
[2019-02-20] MEDS: ASCORBIC ACID 500 MG TAB PO SCH (08:56)
[2019-02-20] MEDS: NICOTINE 21MG/24HR PATCH TRANSDERM SCH (08:56)
[2019-02-20] MEDS: methylPREDNISolone SOD SUCCI 40 MG/ML 1 ML VIAL IV SCH ×3 (08:56→23:09)
[2019-02-20] MEDS: METOPROLOL TARTRATE 50 MG TAB PO SCH ×3 (08:56→20:28)
[2019-02-20] MEDS: VITAMIN E (DL,TOCOPHERYL ACET) 400 UNIT CAP PO SCH (08:57)
[2019-02-20] MEDS: RIVAROXABAN 20 MG TAB PO SCH (08:57)
[2019-02-20] MEDS: CHOLECALCIFEROL 1,000 UNIT TAB PO SCH (08:57)
[2019-02-20 09:22] LABS: Cholesterol 146 mg/dL (<200); HDL Cholesterol 53 mg/dL (40-60); LDL Cholesterol,Calculated 70 mg/dL (0-99); Triglycerides 113 mg/dL (<150)
--- NOTE | 2019-02-20 11:38 | P.PN ---
Subjective This is a pleasant 73-year-old male past medical history significant for hypertension, dyslipidemia and mild nonobstructive coronary artery disease per cardiac catheterization 2018. He sees Dr. Munson in the office. We're following secondary to new onset atrial fibrillation. He is seen and examined sitting up in bed in no acute distress. He continues to be in sinus mechanism however his rates are much better controlled since admission. Heart rate currently in the low 90s. He denies symptoms of chest pain, shortness of breath, dizziness or palpitations. Currently maintained on metoprolol 50 mg twice a day and Xarelto 20 mg daily. Blood pressure 134/89 heart rate 88 afebrile maintaining oxygen saturation on room air. Laboratory data reviewed, sodium 137, potassium 4.8, creatinine 1.42, and proBNP 5730, LDL 70. Most recent echocardiogram obtained May 2017 revealed mildly impaired LV systolic function with ejection fraction 45-50% with basal inferior wall mildly hypokinetic. GENERAL: Well-appearing, well-nourished and in no acute distress. NECK: Supple without JVD or thyromegaly. LUNGS: Faint expiratory wheeze, diminished bilaterally. No rales or rhonchi. Respiration equal and unlabored. HEART: Irregular rate and rhythm with systolic ejection murmur at the left sternal border, no rubs or gallops. S1 and S2 heard. EXTREMITIES: Normal range of motion, no edema. No clubbing or cyanosis. Peripheral pulses intact. ASSESSMENT New onset paroxysmal atrial fibrillation with rapid ventricular response Acute exacerbation of chronic COPD Hypertension Dyslipidemia Mild nonobstructive coronary artery disease per cardiac catheterization 2018 PLAN Repeat 2D echo and doppler study to assess cardiac structure and function. Increase lopressor to TID dosing. Continue to monitor on telemetry for another 24 hours. Nurse Practitioner note has been reviewed, I agree with a documented findings and plan of care. Patient was seen and examined. Objective - Vital Signs Vital signs: Vital Signs Temp 98.7 F 02/20/19 08:00 Pulse 88 02/20/19 08:00 Resp 19 02/20/19 08:00 BP 134/89 02/20/19 08:00 Pulse Ox 93 L 02/20/19 08:00 Intake & Output 02/19/19 02/20/19 02/20/19 18:59 06:59 18:59 Intake Total 240 120 240 Output Total 900 Balance 240 -780 240 Weight 103.1 kg Intake: IV 60 0.9% NS 10ML/HR 40 Diltiazem 125 mg In 20 Sodium Chloride 0.9% 100 ml @ 5 MG/HR 5 mls/hr IV .Q24H [facility] Rx#:[id number] Oral 180 120 240 Output: Urine 900 Other: Voiding Method Toilet Toilet Urinal Urinal - Labs CBC & Chem 7: 02/18/19 10:54 02/20/19 05:46 Labs: Abnormal Lab Results - Last 24 Hours (Table) 02/19/19 02/19/19 02/19/19 Range/Units 12:12 17:07 20:16 BUN (9-20) mg/dL Creatinine (0.66-1.25) mg/dL Glucose (74-99) mg/dL POC Glucose (mg/dL) 159 H 136 H 171 H (75-99) mg/dL 02/20/19 02/20/19 Range/Units 05:46 06:21 BUN 32 H (9-20) mg/dL Creatinine 1.42 H (0.66-1.25) mg/dL Glucose 128 H (74-99) mg/dL POC Glucose (mg/dL) 141 H (75-99) mg/dL
[2019-02-20] MEDS: NON FORMULARY DRUG (Vitamin B Complex [Vitamin B Complex] 1 CAP) PO SCH (11:42)
[2019-02-20 12:00] LABS: Glucose,Whole Blood 128 mg/dL (75-99)
--- NOTE | 2019-02-20 14:03 | P.PN ---
Subjective Progress Note Date: 02/20/19 On 02/20/2019, the patient is being seen in follow-up. Doing well. No new complaints. A CAT scan of the chest was done yesterday and showed a small sized right-sided pleural effusion in addition to emphysema. No evidence of any malignancy. Meanwhile the patient remains in atrial fibrillation. He is under the care of cardiology. The patient was started on Xarelto for long-term anticoagulation. Remains on IV Solu-Medrol. Remains on bronchodilators. Objective - Vital Signs Vital signs: Vital Signs Temp 98.7 F 02/20/19 08:00 Pulse 95 02/20/19 12:20 Resp 18 02/20/19 12:20 BP 121/83 02/20/19 12:20 Pulse Ox 90 L 02/20/19 12:20 Intake & Output 02/19/19 02/20/19 02/20/19 18:59 06:59 18:59 Intake Total 240 120 480 Output Total 900 250 Balance 240 -780 230 Weight 103.1 kg Intake: IV 60 0.9% NS 10ML/HR 40 Diltiazem 125 mg In 20 Sodium Chloride 0.9% 100 ml @ 5 MG/HR 5 mls/hr IV .Q24H [facility] Rx#:[id number] Oral 180 120 480 Output: Urine 900 250 Other: Voiding Method Toilet Toilet Urinal Urinal # Voids 1 - Exam The patient appeared well nourished and normally developed. Vital signs as documented. Head exam is unremarkable. No scleral icterus or corneal arcus noted. Neck is without jugular venous distension, thyromegaly, or carotid bruits. Carotid upstrokes are brisk bilaterally. Lungs are diminished breath sounds bilaterally along with prolongation of expiratory phase of breathing and scattered expiratory wheezes heard throughout the lung his bilaterally. Cardiac exam reveals the PMI to be normally sized and situated. Rhythm is irregular. First and second heart sounds normal. No murmurs, rubs or gallops. Abdominal exam reveals normal bowel sounds, no masses, no organomegaly and no aortic enlargement. Extremities are nonedematous and both femoral and pedal pulses are normal. Neurologically patient is awake and alert and there is no focal neurological deficit.Examination of the skin revealed no evidence of significant rashes, suspicious appearing nevi or other concerning lesions. - Labs CBC & Chem 7: 02/18/19 10:54 02/20/19 05:46 Labs: Abnormal Lab Results - Last 24 Hours (Table) 02/19/19 02/19/19 02/20/19 Range/Units 17:07 20:16 05:46 BUN 32 H (9-20) mg/dL Creatinine 1.42 H (0.66-1.25) mg/dL Glucose 128 H (74-99) mg/dL POC Glucose (mg/dL) 136 H 171 H (75-99) mg/dL 02/20/19 02/20/19 Range/Units 06:21 11:58 BUN (9-20) mg/dL Creatinine (0.66-1.25) mg/dL Glucose (74-99) mg/dL POC Glucose (mg/dL) 141 H 128 H (75-99) mg/dL Assessment and Plan Plan: 1 acute COPD exacerbation with secondary shortness of breath, likely secondary to symptoms of an acute bronchitis. Nevertheless, the chest x-ray shows quite abnormalities with right lower lobe opacity, effusion and the right upper lobe density and computed tomography scan of the chest showed no evidence of any malignancy or lesions. There was a small right-sided pleural effusion noted. Fl 2 COPD mild in severity with a baseline FEV1 of 75% of predicted 3 atrial flutter with controlled rate. Maintained on long-term and coagulation with Xarelto 4 CHF with mild systolic heart failure 5 degenerative arthritis 6 hypertension 7 obstructive sleep apnea not receiving any treatment 8 nephrolithiasis 9 history of foot drop on the left and history of sciatica 10 history of hemorrhoids and GI bleed Plan Agree on the current treatment Management of atrial fibrillation/flutter per cardiology echocardiogram, results are still pending for now CAT scan of the chest with contrast noted We'll give the patient does of Lasix 40 mg IV push Add Zithromax 500 mg by mouth daily 2 new Xarelto We'll continue to follow
[2019-02-20 16:38] LABS: Glucose,Whole Blood 125 mg/dL (75-99)
--- NOTE | 2019-02-20 16:50 | ECHOF ---
Referral Reason:new onset afib MEASUREMENTS -------- HEIGHT: 188.0 cm WEIGHT: 103.0 kg BP: 134/89 RVIDd: 3.6 cm (< 3.3) IVSd: 1.3 cm (0.6 - 1.1) LVIDd: 4.7 cm (3.9 - 5.3) LVPWd: 1.2 cm (0.6 - 1.1) IVSs: 1.7 cm LVIDs: 3.9 cm LVPWs: 1.4 cm LA Diam: 2.7 cm (2.7 - 3.8) LAESV Index (A-L): 36.54 ml/m Ao Diam: 3.7 cm (2.0 - 3.7) AV Cusp: 1.7 cm (1.5 - 2.6) MV EXCURSION: 13.341 mm (> 18.000) MV EF SLOPE: 86 mm/s (70 - 150) EPSS: 1.1 cm AR PHT: 656 ms RAP: 15.00 mmHg RVSP: 49.65 mmHg FINDINGS -------- Atrial fibrillation. This was a technically difficult study with suboptimal parasternal views. The left ventricular size is normal. There is mild concentric left ventricular hypertrophy. Overa ll left ventricular systolic function is moderate-severely impaired with, an EF between 30 - 35 %. The right ventricle is mildly enlarged. LA is moderately dilated 34-39 ml/m2 The right atrium is normal in size. Interatrial and interventricular septum intact. There is mild aortic valve sclerosis. There is mild aortic regurgitation. The mitral valve leaflets are mildly thickened. Mild mitral annular calcification present. Modera te mitral regurgitation is present. Mild tricuspid regurgitation present. There is moderate pulmonary hypertension. The right ventric ular systolic pressure, as measured by Doppler, is 49.65mmHg. Trace/mild (physiologic) pulmonic regurgitation. The aortic root size is normal. The inferior vena cava is dilated with no significant inspiratory collapse which is consistent estima demetrice right atrial pressure of >15 mmHg. There is no pericardial effusion. CONCLUSIONS -------- 1. Atrial fibrillation. 2. This was a technically difficult study with suboptimal parasternal views. 3. The left ventricular size is normal. 4. There is mild concentric left ventricular hypertrophy. 5. The right ventricle is mildly enlarged. 6. LA is moderately dilated 34-39 ml/m2 7. The right atrium is normal in size. 8. Interatrial and interventricular septum intact. 9. There is mild aortic valve sclerosis. 10. There is mild aortic regurgitation. 11. The mitral valve leaflets are mildly thickened. 12. Mild mitral annular calcification present. 13. Moderate mitral regurgitation is present. 14. Mild tricuspid regurgitation present. 15. There is moderate pulmonary hypertension. 16. The right ventricular systolic pressure, as measured by Doppler, is 49.65mmHg. 17. Trace/mild (physiologic) pulmonic regurgitation. 18. The aortic root size is normal. 19. The inferior vena cava is dilated with no significant inspiratory collapse which is consistent es timated right atrial pressure of >15 mmHg. 20. There is no pericardial effusion. F[employer] SALESPERSON: Donna Pink RDCS
[2019-02-20] MEDS: FUROSEMIDE 10 MG/ML 4 ML VIAL IV SCH ×2 (17:02→20:27)
[2019-02-20 20:07] LABS: Glucose,Whole Blood 143 mg/dL (75-99)
[2019-02-20] MEDS: traZODone HCL 50 MG TAB PO SCH (20:27)
[2019-02-20] MEDS: ATORVASTATIN 20 MG TAB PO SCH (20:27)
--- NOTE | 2019-02-20 22:36 | P.PN ---
Progress Note - Text Progress Note Date: 02/20/19 Chief Complaint: Shortness of breath History of presenting complaint: This is a pleasant 73-year-old patient of Dr. montenegro. Chronic stable medical conditions include hypertension, Milly arthritis, chronic left foot drop, obstructive sleep apnea does not use CPAP, nonobstructed coronary artery disease per prior cardiac catheterization. For 10 days patient been having shortness of breath and wheezing cough clear warts phlegm. No fever or chills. Decreased appetite. Also notices hearts to be fluttering. Presented to the ER was found to be in atrial flutter fibrillation with a rapid ventricular rate. Was started on a Cardizem drip. Also felt to COPD exacerbation. Has some orthopnea. No fever no chills. admitted with atrial flutter fibrillation with a rapid ventricular rate and COPD exacerbation. Today-breathing is better. Heart rate better controlled. Seen by cardio G. Started on anticoagulation. Overall feeling better. Appetite improving.put on IV Lasix by cardiology Review of systems: Was done for constitutional, cardiovascular, GI, pulmonary. relevant finding as above Active Medications Albuterol/Ipratropium (Duoneb 0.5 Mg-3 Mg/3 Ml Soln) 3 ml INHALATION RT-Q4H PRN PRN Reason: Shortness Of Breath Or Wheezing Last Admin: 02/20/19 20:23 Dose: 3 ml Documented by: Ascorbic Acid (Vitamin C) 500 mg PO DAILY [facility] Last Admin: 02/20/19 08:56 Dose: 500 mg Documented by: Atorvastatin Calcium (Lipitor) 20 mg PO HS [facility] Last Admin: 02/20/19 20:27 Dose: 20 mg Documented by: Budesonide/Formoterol Fumarate (Symbicort 160-4.5 Mcg Inhaler) 2 puff INHALATION RT-BID [facility] Last Admin: 02/20/19 20:23 Dose: 2 puff Documented by: Cholecalciferol (Vitamin D3 (25 Mcg = 1000 Iu)) 1,000 unit PO DAILY [facility] Last Admin: 02/20/19 08:57 Dose: 1,000 unit Documented by: Furosemide (Lasix) 40 mg IV Q12HR [facility] Last Admin: 02/20/19 20:27 Dose: 40 mg Documented by: Insulin Aspart (Novolog) 0 unit SQ [facility]; Protocol Last Admin: 02/20/19 20:27 Dose: 2 unit Documented by: Ipratropium [place] (Atrovent Nebulized) 0.5 mg INHALATION RT-Q6H PRN PRN Reason: Shortness Of Breath Methylprednisolone Sodium Succinate (Solu-Medrol) 40 mg IV Q8HR [facility] Last Admin: 02/20/19 17:03 Dose: 40 mg Documented by: Metoprolol Tartrate (Lopressor) 50 mg PO TID [facility] Last Admin: 02/20/19 20:28 Dose: 50 mg Documented by: Miscellaneous Information (Rx Info: Iv Contrast Was Given) 1 each MISCELLANE DAILY PRN PRN Reason: Per Protocol Stop: 02/21/19 14:31 Nicotine (Habitrol 21mg/24hr Patch) 1 patch TRANSDERM DAILY [facility] Last Admin: 02/20/19 08:56 Dose: 1 patch Documented by: Non-Formulary Medication (Vitamin B Complex [Vitamin B Complex]) 1 cap PO DAILY [facility] Last Admin: 02/20/19 11:42 Dose: Not Given Documented by: Rivaroxaban (Xarelto) 20 mg PO DAILY [facility] Last Admin: 02/20/19 08:57 Dose: 20 mg Documented by: Trazodone HCl (Desyrel) 150 mg PO HS [facility] Last Admin: 02/20/19 20:27 Dose: 150 mg Documented by: Vitamin E (Vitamin E) 800 unit PO DAILY [facility] Last Admin: 02/20/19 08:57 Dose: 800 unit Documented by: Physical examination: VITAL SIGNS: 98.7, 88, 19, 134/89, 93% room air GENERAL: sitting up, looking better EYES: Pupils equal. Conjunctiva normal. HEENT: External appearance of nose and ears normal, oral cavity grossly normal. NECK: JVD possibly raised; masses not palpable. HEART: Heart sounds irregular, minimal edema LUNGS: Respiratory rate increased, decreased wheezing improved air entry ABDOMEN: Soft, nontender, liver spleen not palpable, no masses palpable. PSYCH: Alert and oriented x3; mood and affect normal. MUSCULOSKELETAL: Evidence of OA INVESTIGATIONS, reviewed in the clinical context: Bun 32 creatinine 1.4 to, proBNP 5730, telemetry-atrial flutter- fibrillation rate controlled 2-D echo with EF 30-35% previous testing White count 6.6 hemoglobin 14.2 platelets 182 potassium 3.9 creatinine 1.19 EKG tracing personally reviewed by me-atrial flutter fibrillation with a rapid ventricular rate Chest x-ray film personally reviewed by me-pulmonary edema with fluid in the fissure Assessment: -Atrial flutter fibrillation with a rapid ventricular rate, POA, now better controlled -Acute congestive heart exacerbation from systolic dysfunction EF 30-35%, POA, s -Acute COPD exacerbation in a current smoker, improving -Chronic nicotine dependence patient is an active cigarette smoker -Acute pulmonary edema, possibly related to uncontrolled heart rate from the arrhythmia -primary osteoarthritis -Essential hypertension -Chronic left foot drop -Minimal coronary artery disease per prior cardiac catheterization Plan: patient is responding well to IV Lasix. Heart rate is better controlled. COPD is improving. Keep a close and renal function. Another 24 hours of IV Lasix.follow electrolytes
[2019-02-21 06:10] LABS: Basophils % (A) 0 %; Eosinophils % (A) 0 %; HCT 39.2 % (39.0-53.0); HGB 12.5 gm/dL (13.0-17.5); Lymphocytes # (A) 0.3 k/uL (1.0-4.8); Lymphocytes % (A) 6 %; MCH 32.5 pg (25.0-35.0); MCHC 31.9 g/dL (31.0-37.0); MCV 101.8 fL (80.0-100.0); Macrocytosis Slight; Monocytes # (A) 0.2 k/uL (0-1.0); Monocytes % (A) 5 %; Neutrophils # (A) 4.6 k/uL (1.3-7.7); Neutrophils % (A) 88 %; Platelet Count 200 k/uL (150-450); RBC 3.85 m/uL (4.30-5.90); RDW 12.9 % (11.5-15.5); WBC 5.2 k/uL (3.8-10.6)
[2019-02-21 06:13] LABS: Glucose,Whole Blood 130 mg/dL (75-99)
[2019-02-21] MEDS: INSULIN ASPART (NovoLOG) 100 UNIT/ML VIAL SQ SCH ×2 (06:14→12:23)
[2019-02-21 06:23] LABS: Calcium 8.4 mg/dL (8.4-10.2)
[2019-02-21] MEDS: SYMBICORT 160-4.5 MCG INHALER INHALATION SCH (07:40)
[2019-02-21] MEDS: METOPROLOL TARTRATE 50 MG TAB PO SCH (08:05)
[2019-02-21] MEDS: RIVAROXABAN 20 MG TAB PO SCH (08:05)
[2019-02-21] MEDS: methylPREDNISolone SOD SUCCI 40 MG/ML 1 ML VIAL IV SCH (08:06)
[2019-02-21] MEDS: VITAMIN E (DL,TOCOPHERYL ACET) 400 UNIT CAP PO SCH (08:06)
[2019-02-21] MEDS: NICOTINE 21MG/24HR PATCH TRANSDERM SCH (08:06)
[2019-02-21] MEDS: ASCORBIC ACID 500 MG TAB PO SCH (08:06)
[2019-02-21] MEDS: CHOLECALCIFEROL 1,000 UNIT TAB PO SCH (08:06)
[2019-02-21] MEDS: NON FORMULARY DRUG (Vitamin B Complex [Vitamin B Complex] 1 CAP) PO SCH (08:15)
[2019-02-21 08:23] VITALS: TEMP 97.6
[2019-02-21] MEDS ORDERED: LISINOPRIL 2.5 MG TAB PO SCH (09:00)
[2019-02-21] MEDS ORDERED: SPIRONOLACTONE 25 MG TAB PO SCH (09:00)
[2019-02-21] MEDS: IPRATROPIUM-ALBUTEROL 3 ML NEB INHALATION PRN (11:13)
[2019-02-21 11:36] LABS: Glucose,Whole Blood 102 mg/dL (75-99)
--- NOTE | 2019-02-21 12:14 | P.PN ---
Subjective This is a pleasant 73-year-old male past medical history significant for hypertension, dyslipidemia and mild nonobstructive coronary artery disease per cardiac catheterization 2018. He sees Dr. Munson in the office. We're following secondary to new onset atrial fibrillation. He is seen and examined up ambulating around the room. Symptoms of chest pain, shortness of breath, dizziness or palpitations. He continues to maintain atrial fibrillation. Blood pressure 128/83 heart rate 93 afebrile maintaining oxygen saturation on room a ir. Echocardiogram obtained reveals impaired LV systolic function with ejection fraction 30-35%, moderately dilated left atrium, mild aortic valve sclerosis, mild aortic regurgitation, moderate mitral regurgitation, mild tricuspid regurgitation and moderate pulmonary hypertension with an RVSP of 49 mmHg. He was initiated on Lasix IV 40 mg twice a day yesterday secondary to impaired LV systolic function. Repeat laboratory data reviewed, WBC 5.2, hemoglobin 12.5, platelets 200, sodium 140, potassium 4.0, creatinine 1.53. Currently maintained on atorvastatin 20 mg at bedtime, Lasix 40 mg IV twice a day, metoprolol 50 mg 3 times a day, Xarelto 20 mg daily. GENERAL: Well-appearing, well-nourished and in no acute distress. NECK: Supple without JVD or thyromegaly. LUNGS: Faint expiratory wheeze, diminished bilaterally. No rales or rhonchi. Respiration equal and unlabored. HEART: Irregular rate and rhythm with systolic ejection murmur at the left sternal border, no rubs or gallops. S1 and S2 heard. EXTREMITIES: Normal range of motion, no edema. No clubbing or cyanosis. Peripheral pulses intact. ASSESSMENT New onset paroxysmal atrial fibrillation with rapid ventricular response Acute exacerbation of chronic COPD Acute on chronic systolic heart failure, EF decreased likely secondary to atrial fibrillation. Hypertension Dyslipidemia Mild nonobstructive coronary artery disease per cardiac catheterization 2018 PLAN Transition to oral diuretics. Initiate on lisinopril 2.5 mg daily along with aldactone 25 mg daily. Continue atorvastatin, lopressor and xarelto as previously ordered. Stable for discharge from a cardiac perspective. Follow up with Dr. uMnson in about 10 days. Nurse Practitioner note has been reviewed, I agree with a documented findings and plan of care. Patient was seen and examined. Objective - Vital Signs Vital signs: Vital Signs Temp 97.6 F 02/21/19 08:10 Pulse 93 02/21/19 08:10 Resp 17 02/21/19 08:10 BP 128/83 02/21/19 08:10 Pulse Ox 93 L 02/21/19 08:10 Intake & Output 02/20/19 02/21/19 02/21/19 18:59 06:59 18:59 Intake Total 720 120 Output Total 750 925 700 Balance -30 -925 -580 Weight 100.2 kg Intake: Oral 720 120 Output: Urine 750 925 700 Other: Voiding Method Toilet Urinal # Voids 1 0 - Labs CBC & Chem 7: 02/21/19 05:49 02/21/19 05:49 Labs: Abnormal Lab Results - Last 24 Hours (Table) 02/20/19 02/20/19 02/20/19 Range/Units 11:58 16:30 20:05 RBC (4.30-5.90) m/uL Hgb (13.0-17.5) gm/dL MCV (80.0-100.0) fL Lymphocytes # (1.0-4.8) k/uL BUN (9-20) mg/dL Creatinine (0.66-1.25) mg/dL Glucose (74-99) mg/dL POC Glucose (mg/dL) 128 H 125 H 143 H (75-99) mg/dL 02/21/19 02/21/19 02/21/19 Range/Units 05:49 05:49 06:12 RBC 3.85 L (4.30-5.90) m/uL Hgb 12.5 L (13.0-17.5) gm/dL MCV 101.8 H (80.0-100.0) fL Lymphocytes # 0.3 L (1.0-4.8) k/uL BUN 41 H (9-20) mg/dL Creatinine 1.53 H (0.66-1.25) mg/dL Glucose 138 H (74-99) mg/dL POC Glucose (mg/dL) 130 H (75-99) mg/dL
[2019-02-21 12:23] VITALS: BP 135/94; PULSE 91; RESP 18
--- NOTE | 2019-02-21 13:24 | P.PN ---
Subjective Progress Note Date: 02/21/19 On 02/21/2019 Rony is feeling better. He is ambulating. He diuresed well overnight. No other complaints otherwise and the patient is being prepared to get discharged home today feeds on room air oxygen and his pulse ox is up to 95%. Echocardiogram was noted and the patient is ejection fraction of 30-35% along with some moderate degree of mitral regurgitation. Cardiology is on the case. Objective - Vital Signs Vital signs: Vital Signs Temp 97.6 F 02/21/19 08:10 Pulse 91 02/21/19 12:10 Resp 18 02/21/19 12:10 BP 135/94 02/21/19 12:10 Pulse Ox 95 02/21/19 12:10 Intake & Output 02/20/19 02/21/19 02/21/19 18:59 06:59 18:59 Intake Total 720 360 Output Total 750 925 700 Balance -30 -925 -340 Weight 100.2 kg Intake: Oral 720 360 Output: Urine 750 925 700 Other: Voiding Method Toilet Urinal # Voids 1 1 # Bowel Movements 0 - Exam The patient appeared well nourished and normally developed. Vital signs as docu mented. Head exam is unremarkable. No scleral icterus or corneal arcus noted. Neck is without jugular venous distension, thyromegaly, or carotid bruits. Carotid upstrokes are brisk bilaterally. Lungs are diminished breath sounds bilaterally along with prolongation of expiratory phase of breathing and scattered expiratory wheezes heard throughout the lung his bilaterally. Cardiac exam reveals the PMI to be normally sized and situated. Rhythm is irregular. First and second heart sounds normal. No murmurs, rubs or gallops. Abdominal exam reveals normal bowel sounds, no masses, no organomegaly and no aortic enlargement. Extremities are nonedematous and both femoral and pedal pulses are normal. Neurologically patient is awake and alert and there is no focal neurological deficit.Examination of the skin revealed no evidence of significant rashes, suspicious appearing nevi or other concerning lesions. - Labs CBC & Chem 7: 02/21/19 05:49 02/21/19 05:49 Labs: Abnormal Lab Results - Last 24 Hours (Table) 02/20/19 02/20/19 02/21/19 Range/Units 16:30 20:05 05:49 RBC 3.85 L (4.30-5.90) m/uL Hgb 12.5 L (13.0-17.5) gm/dL MCV 101.8 H (80.0-100.0) fL Lymphocytes # 0.3 L (1.0-4.8) k/uL BUN (9-20) mg/dL Creatinine (0.66-1.25) mg/dL Glucose (74-99) mg/dL POC Glucose (mg/dL) 125 H 143 H (75-99) mg/dL 02/21/19 02/21/19 02/21/19 Range/Units 05:49 06:12 11:31 RBC (4.30-5.90) m/uL Hgb (13.0-17.5) gm/dL MCV (80.0-100.0) fL Lymphocytes # (1.0-4.8) k/uL BUN 41 H (9-20) mg/dL Creatinine 1.53 H (0.66-1.25) mg/dL Glucose 138 H (74-99) mg/dL POC Glucose (mg/dL) 130 H 102 H (75-99) mg/dL Assessment and Plan Plan: 1 acute COPD exacerbation with secondary shortness of breath, likely secondary to symptoms of an acute bronchitis. Nevertheless, the chest x-ray shows quite abnormalities with right lower lobe opacity, effusion and the right upper lobe density and computed tomography scan of the chest showed no evidence of any malignancy or lesions. There was a small right-sided pleural effusion noted. 2 COPD mild in severity with a baseline FEV1 of 75% of predicted 3 atrial flutter with controlled rate. Maintained on long-term and coagulation with Xarelto 4 CHF with mild systolic heart failure, with ejection fraction of 30-35% 5 degenerative arthritis 6 hypertension 7 obstructive sleep apnea not receiving any treatment 8 nephrolithiasis 9 history of foot drop on the left and history of sciatica 10 history of hemorrhoids and GI bleed Plan Agree on the current treatment Management of atrial fibrillation/flutter per cardiology Complete the course of Zithromax 500 mg by mouth daily and give the patient prednisone burst taper Continue Xarelto AGREE for discharge today. Follow-up with pulmonary. Follow-up with cardiology. Smoking cessation counseling.
[2019-02-21] MEDS ORDERED: FUROSEMIDE 40 MG TAB PO SCH (16:00)
--- NOTE | 2019-02-21 23:52 | P.DS ---
Providers Date of admission: 02/18/19 12:32 Expected date of discharge: 02/21/19 Attending physician: Steve Beth Consults: 02/18/19 12:32 Consult Physician Routine Consulting Provider: [facility] Consult Reason/Comments: A. fib with rapid ventricular response Do you want consulting provider notified?: Yes 02/19/19 09:26 Consult Physician Routine Consulting Provider: Wilfred Olmos Consult Reason/Comments: COPD Do you want consulting provider notified?: Yes Primary care physician: Andrew Elizalde Hospital Course: Chief Complaint: Shortness of breath Hospital course: This is a pleasant 73-year-old patient of Dr. elizalde. Chronic stable medical conditions include hypertension, Milly arthritis, chronic left foot drop, obs tructive sleep apnea does not use CPAP, nonobstructed coronary artery disease per prior cardiac catheterization. For 10 days patient been having shortness of breath and wheezing cough clear phlegm. No fever or chills. Decreased appetite. Also notices hearts to be fluttering. Presented to the ER was found to be in atrial flutter fibrillation with a rapid ventricular rate. Was started on a Cardizem drip. Also felt to COPD exacerbation. Has some orthopnea. No fever no chills. admitted with atrial flutter fibrillation with a rapid ventricular rate and COPD exacerbation., CHF exacerbation. Responded well to bronchodilators, steroids, IV Lasix. On Xarelto. Today-doing much better. Heart rate controlled. Respiratory symptoms much improved. Patient was counseled about smoking Consultation: Dr. EMIL Solis from cardiology Physical examination: VITAL SIGNS: 97.6, 93, 17, 128/83, 93% room air GENERAL: sitting up, comfortable EYES: Pupils equal. Conjunctiva normal. HEENT: External appearance of nose and ears normal, oral cavity grossly normal. NECK: JVD possibly raised; masses not palpable. HEART: Heart sounds irregular, minimal edema LUNGS: Respiratory rate increased, decreased wheezing improved air entry ABDOMEN: Soft, nontender, liver spleen not palpable, no masses palpable. PSYCH: Alert and oriented x3; mood and affect normal. MUSCULOSKELETAL: Evidence of OA INVESTIGATIONS, reviewed in the clinical context: White count 5.2 hemoglobin 12.5 bun 41 and crit 1.53 Previous testing proBNP 5730, telemetry-atrial flutter- fibrillation rate controlled 2-D echo with EF 30-35% previous testing White count 6.6 hemoglobin 14.2 platelets 182 potassium 3.9 creatinine 1.19 EKG tracing personally reviewed by me-atrial flutter fibrillation with a rapid ventricular rate Chest x-ray film personally reviewed by me-pulmonary edema with fluid in the fissure Assessment: -Atrial flutter fibrillation with a rapid ventricular rate, POA, now better controlled -Acute congestive heart exacerbation from systolic dysfunction EF 30-35%, POA, s -Acute COPD exacerbation in a current smoker, improving -Chronic nicotine dependence patient is an active cigarette smoker -Acute pulmonary edema, possibly related to uncontrolled heart rate from the arrhythmia -primary osteoarthritis -Essential hypertension -Chronic left foot drop -Minimal coronary artery disease per prior cardiac catheterization -Acute kidney injury, prerenal from diuresis to -Chronic kidney disease stage II, possible nephrosclerosis Disposition: Home Patient Condition at Discharge: Stable Plan - Discharge Summary Discharge Rx Participant: Yes New Discharge Prescriptions: New Spironolactone [Aldactone] 25 mg PO DAILY #30 tab Ipratropium-Albuterol Nebulize [Duoneb 0.5 mg-3 mg/3 ml Soln] 3 ml INHALATION TID #90 neb Nicotine 21Mg/24Hr Patch [Habitrol] 1 patch TRANSDERM DAILY #14 patch Furosemide [Lasix] 40 mg PO BID@0900,1600 #60 tab Metoprolol Tartrate [Lopressor] 50 mg PO TID #90 tab predniSONE 10 mg PO DAILY #30 tab Rivaroxaban [Xarelto] 20 mg PO DAILY #30 tab Lisinopril [Zestril] 2.5 mg PO DAILY #30 tab Continue traZODone HCL 150 mg PO HS Vitamin E 1,000 unit PO DAILY Vitamin B Complex 1 cap PO DAILY Budesonide/Formoterol Fumarate [Symbicort 160-4.5 Mcg Inhaler] 2 puff INHALATION RT-BID Cholecalciferol [Vitamin D3 (25 Mcg = 1000 Iu)] 1,000 unit PO DAILY Atorvastatin [Lipitor] 20 mg PO HS Ascorbic Acid [Vitamin C] 500 mg PO DAILY Discontinued Albuterol Inhaler [Ventolin Hfa Inhaler] 2 puff INHALATION RT-Q6H PRN PRN Reason: Shortness Of Breath Ipratropium Nebulized [Atrovent Nebulized 0.2 MG/ML] 0.5 mg INHALATION RT-Q6H PRN PRN Reason: Shortness Of Breath Rivaroxaban [Xarelto] 2.5 mg PO BID Discharge Medication List Ascorbic Acid [Vitamin C] 500 mg PO DAILY 02/18/19 [History] Atorvastatin [Lipitor] 20 mg PO HS 02/18/19 [History] Budesonide/Formoterol Fumarate [Symbicort 160-4.5 Mcg Inhaler] 2 puff INHALATION RT-BID 02/18/19 [History] Cholecalciferol [Vitamin D3 (25 Mcg = 1000 Iu)] 1,000 unit PO DAILY 02/18/19 [History] Vitamin B Complex 1 cap PO DAILY 02/18/19 [History] Vitamin E 1,000 unit PO DAILY 02/18/19 [History] traZODone HCL 150 mg PO HS 02/18/19 [History] Furosemide [Lasix] 40 mg PO BID@0900,1600 #60 tab 02/21/19 [Rx] Ipratropium-Albuterol Nebulize [Duoneb 0.5 mg-3 mg/3 ml Soln] 3 ml INHALATION TID #90 neb 02/21/19 [Rx] Lisinopril [Zestril] 2.5 mg PO DAILY #30 tab 02/21/19 [Rx] Metoprolol Tartrate [Lopressor] 50 mg PO TID #90 tab 02/21/19 [Rx] Nicotine 21Mg/24Hr Patch [Habitrol] 1 patch TRANSDERM DAILY #14 patch 02/21/19 [Rx] Rivaroxaban [Xarelto] 20 mg PO DAILY #30 tab 02/21/19 [Rx] Spironolactone [Aldactone] 25 mg PO DAILY #30 tab 02/21/19 [Rx] predniSONE 10 mg PO DAILY #30 tab 02/21/19 [Rx] Follow up Appointment(s)/Referral(s): Andrew Elizalde MD [Primary Care Provider] - 1-2 days Junior Munson MD [STAFF PHYSICIAN] - 2 Weeks Wilfred Olmos MD [STAFF PHYSICIAN] - 1 Week Patient Instructions/Handouts: A-fib (Atrial Fibrillation) (DC), COPD (Chronic Obstructive Pulmonary Disease) (DC) Activity/Diet/Wound Care/Special Instructions: bmp/cbc - 5 days Discharge Disposition: HOME SELF-CARE
--- NOTE | 2019-03-02 09:21 | CDI ---
Documentation Clarification Form Date: 03/02/19 From: Pati Fiore Phone: If you have a question about this query, please contact Ree Thomason, Warehouse Administrator at [phone] between 8am and 5pm. Admit Date: 02/18/19 Discharge Date: 02/21/19 Patient Name: Rony Hightower Visit Number: [id number] ATTENTION: The Clinical Documentation Specialists (CDI) and [facility] Coding Staff appreciate your assistance in clarifying documentation. Please respond to the clarification below the line at the bottom and electronically sign. The CDI & [facility] Coding staff will review the response and follow-up if needed. Please note: Queries are made part of the Legal Health Record. If you have any questions, please contact the author of this message via ITS. Dear Dr. Steve Beth, Atrial Flutter is documented in the ED note, H&P, consult, PNs & DS. History/Risk factors: HTN, A/C systolic CHF & CKD 2, smokes cigarettes, COPD Clinical Indicators: SOB, heart fluttering EKG/telemetry: Atrial fibrillation with RVR with premature ventricular or aberrantly conducted complexes. VR-122, QRS+116, QT-362, QTc-515 Treatment: IV Cardizem 5 mg & Xarelto, Lopressor 50 mg bid In your professional opinion, in order to capture the severity of condition; can you please clarify the type of Atrial Flutter if known? Typical/Type I Atypical/Type II Other, please specify Unable to determine Unable to determine MTDD
--- NOTE | 2019-03-02 09:39 | CDI ---
Documentation Clarification Form Date: 03/02/19 From: Pati Fiore Phone: If you have a question about this query, please contact Ree Thomason, Java Developer Analyst at [phone] between 8am and 5pm. Admit Date: 02/18/19 Discharge Date: 02/21/19 Patient Name: Rony Hightower Visit Number: [id number] ATTENTION: The Clinical Documentation Specialists (CDI) and [facility] Coding Staff appreciate your assistance in clarifying documentation. Please respond to the clarification below the line at the bottom and electronically sign. The CDI & [facility] Coding staff will review the response and follow-up if needed. Please note: Queries are made part of the Legal Health Record. If you have any questions, please contact the author of this message via ITS. Dear Dr. Steve Beth, Documentation of emyphsema is located in the 02/20 PN - A cat scan of the chest was done yesterday and showed a small right sided pleural effusion in addition to emphysema. History/Risk Factors: HTN, A/C systolic CHF & CKD 2 Significant history of respiratory disorders/disease: hx of COPD & asthma Present or past smoker/PPD: started in 1975, a pack a day over 40 years Home O2: no home oxygen Clinical Indicators: R-26, O2 sat-90 (RA) CT scan: There is mild diffuse pulmonary emphysema. Lung and Respiratory Assessment: Respiratory rate increased, some wheezing, some crackles basals Treatment: IV Solu-MEDROL, Nebulizers: Duoneb, Atrovent, Ventolin O2 @ 2 liters Antibiotics: none In your professional opinion, can you please clarify if the above findings and treatment signify any of the following? Acute Exacerbation of Chronic Obstructive Pulmonary Disease (COPD) Chronic obstructive pulmonary disease with acute lower respiratory infection Emphysema Other condition, please specify Unable to determine See discharge summary. No change in documentation. MTDD
== END 2019-02-21 15:10 | disposition home or self-care (01) | DRG 308 ==
LOC: EC 10:17 → 3SCARD 12:32
PROVIDERS: ADMIT Hospitalist; ATTEND Hospitalist
DX: I48.92 Unspecified atrial flutter (principal); I50.23 Acute on chronic systolic (congestive) heart failure; J44.1 Chronic obstructive pulmonary disease with (acute) exacerbation; I13.0 Hypertensive heart and chronic kidney disease with heart failure and stage 1 through stage 4 chronic kidney disease, or unspecified chronic kidney disease; J45.901 Unspecified asthma with (acute) exacerbation; N17.9 Acute kidney failure, unspecified; I27.20 Pulmonary hypertension, unspecified; I48.0 Paroxysmal atrial fibrillation; J20.9 Acute bronchitis, unspecified; N18.2 Chronic kidney disease, stage 2 (mild); I08.3 Combined rheumatic disorders of mitral, aortic and tricuspid valves; I49.3 Ventricular premature depolarization; E78.00 Pure hypercholesterolemia, unspecified; G47.33 Obstructive sleep apnea (adult) (pediatric); T50.1X5A Adverse effect of loop [high-ceiling] diuretics, initial encounter; I25.10 Atherosclerotic heart disease of native coronary artery without angina pectoris; E78.5 Hyperlipidemia, unspecified; M19.041 Primary osteoarthritis, right hand; M19.042 Primary osteoarthritis, left hand; M21.372 Foot drop, left foot; M54.30 Sciatica, unspecified side; K64.9 Unspecified hemorrhoids; R91.8 Other nonspecific abnormal finding of lung field; F17.210 Nicotine dependence, cigarettes, uncomplicated; Z71.6 Tobacco abuse counseling; Z79.51 Long term (current) use of inhaled steroids; Z79.01 Long term (current) use of anticoagulants; Z79.899 Other long term (current) drug therapy; Z86.718 Personal history of other venous thrombosis and embolism; Z87.442 Personal history of urinary calculi; Z86.010 Personal history of colon polyps; Z98.890 Other specified postprocedural states; Z87.19 Personal history of other diseases of the digestive system; Z98.42 Cataract extraction status, left eye; Z98.41 Cataract extraction status, right eye; Z96.1 Presence of intraocular lens; Z80.0 Family history of malignant neoplasm of digestive organs; Z83.3 Family history of diabetes mellitus; Z80.1 Family history of malignant neoplasm of trachea, bronchus and lung; Z83.79 Family history of other diseases of the digestive system; Z83.49 Family history of other endocrine, nutritional and metabolic diseases
CPT/HCPCS: 36415; 71046; 71260; 80048; 80053; 80061; 83735; 83880; 84484; 85025; 85610; 85730; 93005; 93306; 94640; 94760; 96365; 96366; 96375; 99285

== ENCOUNTER → 2019-03-08 | Outpatient (CLI) | payer MEDICARE ==
[2019-03-08 23:25] LABS: African American GFR (CKD) 56.6 (60.0-200.0); Anion Gap 9.3 mmol/L (4.00-12.00); Carbon Dioxide 25.7 mmol/L (21.6-31.8); Non-African American GFR(CKD) 48.8 (60.0-200.0); Potassium 4.8 mmol/L (3.5-5.5)
== END | disposition home or self-care (01) ==
LOC: LABWHC1 14:45
PROVIDERS: ATTEND Internal Medicine Cardiovascular Disease
DX: I50.22 Chronic systolic (congestive) heart failure (principal); E03.2 Hypothyroidism due to medicaments and other exogenous substances
CPT/HCPCS: 36415; 80051; 82565; 83880; 84443; 84520

== ENCOUNTER → 2020-03-22 | Outpatient (CLI) | payer MEDICARE ==
--- NOTE | 2020-03-22 10:11 | USB ---
Reason for exam: clinical finding. Indicated problem(s): lump or thickening in the right breast. Physical Findings: Nurse Summary: Patient complains of right breast retroareolar lump x 1 month with tenderness (nurse mj). US Breast RT Right complete breast ultrasound includes all four quadrants, the retroareolar region and axilla. Finding demonstrates a 4.6 x 1.2 x 3.7cm hypoechoic lesion at the posterior nipple, irregular, suspect gynecomastia. Right subareolar and periareolar scanned at lump. Images of the left side also obtained. These results were verbally communicated with the patient and result sheet given to the patient on 03/22/20. ASSESSMENT: Incomplete: need additional imaging evaluation, BI-RAD 0 RECOMMENDATION: Special view mammogram of both breasts.
--- NOTE | 2020-03-22 10:14 | MM ---
Reason for exam: clinical finding. Indicated problem(s): lump or thickening in the right breast. MG 3D Diag Mammo W/Cad CHENG Bilateral CC and MLO view(s) were taken. XCCL view(s) were taken of the right breast. The breast tissue is heterogeneously dense. This may lower the sensitivity of mammography. Dense flame shaped retroareolar gynecomastia on the right on a background of scattered densities. Prominent lateral intramammary nodes on the right x 2 and an asymmetry but nonenlarged node at the right axilla. These were not appreciated on ultrasound. Probably reactive, 3 month follow up recommended. These results were verbally communicated with the patient and result sheet given to the patient on 03/22/20. ASSESSMENT: Probably benign, BI-RAD 3 RECOMMENDATION: Follow-up diagnostic mammogram of the right breast in 3 months. Manage patient on a clinical basis. Attempt eliminating any potential causes of gynecomastia prior to the patient's follow up.
== END | disposition home or self-care (01) ==
LOC: RADUSWWP 08:05
PROVIDERS: ATTEND Family Medicine
DX: N63.10 Unspecified lump in the right breast, unspecified quadrant (principal); R92.8 Other abnormal and inconclusive findings on diagnostic imaging of breast
CPT/HCPCS: 77066; 76641; G0279; 77062

== ENCOUNTER 2020-11-17 09:43 | Inpatient (IN) | payer MEDICARE ==
--- NOTE | 2020-11-17 11:30 | XR ---
EXAMINATION TYPE: XR chest 2V DATE OF EXAM: 11/17/2020 COMPARISON: 02/18/2019 TECHNIQUE: PA and lateral views submitted. HISTORY: Difficulty breathing FINDINGS: Hyperinflation suggestive of COPD. Diffuse osteopenia and arthropathy of the shoulders. Biapical pleu ral thickening. There is interval reduction in amount of pleural fluid relative to the prior exam. Pe rsistent subsegmental consolidation right lower lobe. IMPRESSION: 1. COPD with right basilar and perihilar areas of chronic scarring, atelectasis or developing infiltr ate. Follow to resolution recommended to exclude other etiologies.
[2020-11-17 11:36] LABS: Basophils % (A) 1 %; Eosinophils # (A) 0.2 k/uL (0-0.7); Eosinophils % (A) 4 %; HCT 40.7 % (39.0-53.0); HGB 13.9 gm/dL (13.0-17.5); Lymphocytes # (A) 0.8 k/uL (1.0-4.8); Lymphocytes % (A) 13 %; MCH 35.1 pg (25.0-35.0); MCHC 34.2 g/dL (31.0-37.0); MCV 102.6 fL (80.0-100.0); Macrocytosis Slight; Mean Platelet Volume 7.3; Monocytes # (A) 0.4 k/uL (0-1.0); Monocytes % (A) 6 %; Neutrophils # (A) 4.3 k/uL (1.3-7.7); Neutrophils % (A) 74 %; Platelet Count 194 k/uL (150-450); RBC 3.97 m/uL (4.30-5.90); RDW 13.1 % (11.5-15.5); WBC 5.8 k/uL (3.8-10.6)
[2020-11-17] MEDS ORDERED: IPRATROPIUM-ALBUTEROL 3 ML NEB INHALATION STA (11:40)
[2020-11-17 11:47] LABS: Albumin 3.8 g/dL (3.5-5.0); Calcium 9.2 mg/dL (8.4-10.2); Potassium 4.4 mmol/L (3.5-5.1); Total Bilirubin 1.3 mg/dL (0.2-1.3)
[2020-11-17 11:56] LABS: Partial Thromboplastin Time 25.6 sec (22.0-30.0); Prothrombin Time 10.7 sec (9.0-12.0)
--- NOTE | 2020-11-17 12:18 | ED ---
General Adult HPI - General Chief complaint: Shortness of Breath Stated complaint: Low Oxygen Time Seen by Provider: 11/17/20 10:30 Source: patient, RN notes reviewed Mode of arrival: ambulatory Limitations: no limitations - History of Present Illness Initial comments: This a 75-year-old male presents emergency Department chief complaint of dyspnea. Patient states that his been having some dizziness, exertional dyspnea. Patient states she does have a history of A. fib, recently stopped his medications for A. fib because he thought it was causing his dizziness. Patient this was then Eliquis and metoprolol. Denies any chest pain other than having some tightness, increasing wheezing. He does have known COPD. Patient states that he noticed that his pulse ox was dropping down into the upper 80s to low 90s at home. - Related Data Home Medications Medication Instructions Recorded Confirmed traZODone HCL 150 mg PO HS 02/18/19 11/17/20 Allergies Allergy/AdvReac Type Severity Reaction Status Date / Time No Known Allergies Allergy Verified 11/17/20 11:48 Review of Systems ROS Statement: Those systems with pertinent positive or pertinent negative responses have been documented in the HPI. ROS Other: All systems not noted in ROS Statement are negative. Past Medical History Past Medical History: Atrial Fibrillation, COPD, GI Bleed, Hypertension, Osteoarthritis (OA), Renal Disease, Sleep Apnea/CPAP/BIPAP Additional Past Medical History / Comment(s): Nephrolithiasis (3 stones), arthritis bilateral hands/thumbs, PRUDENCIO without device, R knee "unhappy triad", L foot drop d/t sciatica, lower GI bleed thought d/t constipation, recent adm ission for flare up of COPD & dx. w/a-fib per pt. History of Any Multi-Drug Resistant Organisms: None Reported Past Surgical History: Hernia Repair, Orthopedic Surgery, Tonsillectomy Additional Past Surgical History / Comment(s): RT KNEE SCOPE, BILATERAL CATARACTS with lens implants. COLONOSCOPY with benign polypectomy, 06/05/15 umb hernia and R ing. hernia repair Past Anesthesia/Blood Transfusion Reactions: No Reported Reaction Past Psychological History: No Psychological Hx Reported Smoking Status: Never smoker Past Alcohol Use History: Occasional Past Drug Use History: None Reported - Past Family History Sister(s) Family Medical History: Cancer Father Family Medical History: Cancer Additional Family Medical History / Comment(s): Father had lung and colon cancer. He had cirrhosis. He just before his 80th birthday. He was a nonsmoker and a nondrinker. Mother Family Medical History: Diabetes Mellitus Additional Family Medical History / Comment(s): Mother was overweight. She at age 87 yrs. General Exam Limitations: no limitations General appearance: alert, in no apparent distress Head exam: Present: atraumatic, normocephalic, normal inspection Eye exam: Present: normal appearance, PERRL, EOMI. Absent: scleral icterus, conjunctival injection, periorbital swelling Neck exam: Present: normal inspection. Absent: tenderness, meningismus, lymphadenopathy Respiratory exam: Present: wheezes. Absent: normal lung sounds bilaterally, respiratory distress, rales, rhonchi, stridor Cardiovascular Exam: Present: irregular rhythm, normal heart sounds. Absent: regular rate, normal rhythm, systolic murmur, diastolic murmur, rubs, gallop, clicks GI/Abdominal exam: Present: soft, normal bowel sounds. Absent: distended, tenderness, guarding, rebound, rigid Neurological exam: Present: alert, oriented X3, CN II-XII intact, reflexes normal. Absent: motor sensory deficit Skin exam: Present: warm, dry, intact, normal color. Absent: rash Course Vital Signs 11/17/20 11/17/20 11/17/20 09:45 12:02 12:18 Temperature 98.6 F Pulse Rate 83 82 84 Respiratory 20 18 18 Rate Blood Pressure 154/78 O2 Sat by Pulse 94 L Oximetry Medical Decision Making - Medical Decision Making X-ray shows evidence of pneumonia, patient has acute COPD exacerbation, A. fib who discontinue medications. Patient will be admitted for COPD exacerbation will be restarted on metoprolol, Eliquis. - Lab Data Result diagrams: 11/17/20 10:59 11/17/20 10:59 Lab Results 11/17/20 11/17/20 11/17/20 Range/Units 10:59 10:59 10:59 WBC 5.8 (3.8-10.6) k/uL RBC 3.97 L (4.30-5.90) m/uL Hgb 13.9 (13.0-17.5) gm/dL Hct 40.7 (39.0-53.0) % MCV 102.6 H (80.0-100.0) fL MCH 35.1 H (25.0-35.0) pg MCHC 34.2 (31.0-37.0) g/dL RDW 13.1 (11.5-15.5) % Plt Count 194 (150-450) k/uL MPV 7.3 Neutrophils % 74 % Lymphocytes % 13 % Monocytes % 6 % Eosinophils % 4 % Basophils % 1 % Neutrophils # 4.3 (1.3-7.7) k/uL Lymphocytes # 0.8 L (1.0-4.8) k/uL Monocytes # 0.4 (0-1.0) k/uL Eosinophils # 0.2 (0-0.7) k/uL Basophils # 0.0 (0-0.2) k/uL Macrocytosis Slight PT 10.7 (9.0-12.0) sec INR 1.0 (<1.2) APTT 25.6 (22.0-30.0) sec Sodium 137 (137-145) mmol/L Potassium 4.4 (3.5-5.1) mmol/L Chloride 104 (98-107) mmol/L Carbon Dioxide 21 L (22-30) mmol/L Anion Gap 12 mmol/L BUN 18 (9-20) mg/dL Creatinine 1.32 H (0.66-1.25) mg/dL Est GFR (CKD-EPI)AfAm 60 (>60 ml/min/1.73 sqM) Est GFR (CKD-EPI)NonAf 52 (>60 ml/min/1.73 sqM) Glucose 101 H (74-99) mg/dL Calcium 9.2 (8.4-10.2) mg/dL Magnesium 2.0 (1.6-2.3) mg/dL Total Bilirubin 1.3 (0.2-1.3) mg/dL AST 24 (17-59) U/L ALT 12 (4-49) U/L Alkaline Phosphatase 81 (38-126) U/L Troponin I (0.000-0.034) ng/mL Total Protein 7.0 (6.3-8.2) g/dL Albumin 3.8 (3.5-5.0) g/dL Coronavirus (PCR) (Not Detectd) 10/08/21 10/08/21 Range/Units 10:59 11:06 WBC (3.8-10.6) k/uL RBC (4.30-5.90) m/uL Hgb (13.0-17.5) gm/dL Hct (39.0-53.0) % MCV (80.0-100.0) fL MCH (25.0-35.0) pg MCHC (31.0-37.0) g/dL RDW (11.5-15.5) % Plt Count (150-450) k/uL MPV Neutrophils % % Lymphocytes % % Monocytes % % Eosinophils % % Basophils % % Neutrophils # (1.3-7.7) k/uL Lymphocytes # (1.0-4.8) k/uL Monocytes # (0-1.0) k/uL Eosinophils # (0-0.7) k/uL Basophils # (0-0.2) k/uL Macrocytosis PT (9.0-12.0) sec INR (<1.2) APTT (22.0-30.0) sec Sodium (137-145) mmol/L Potassium (3.5-5.1) mmol/L Chloride (98-107) mmol/L Carbon Dioxide (22-30) mmol/L Anion Gap mmol/L BUN (9-20) mg/dL Creatinine (0.66-1.25) mg/dL Est GFR (CKD-EPI)AfAm (>60 ml/min/1.73 sqM) Est GFR (CKD-EPI)NonAf (>60 ml/min/1.73 sqM) Glucose (74-99) mg/dL Calcium (8.4-10.2) mg/dL Magnesium (1.6-2.3) mg/dL Total Bilirubin (0.2-1.3) mg/dL AST (17-59) U/L ALT (4-49) U/L Alkaline Phosphatase (38-126) U/L Troponin I <0.012 (0.000-0.034) ng/mL Total Protein (6.3-8.2) g/dL Albumin (3.5-5.0) g/dL Coronavirus (PCR) Not Detected (Not Detectd) Disposition Clinical Impression: COPD exacerbation, Atrial fibrillation, Exertional dyspnea, Dizziness Disposition: ADMITTED IP TO THIS HOSP Condition: Fair Referrals: Cavataio,Andrew, MD [Primary Care Provider] - 1-2 days
[2020-11-17] MEDS ORDERED: methylPREDNISolone SOD SUCCI 125 MG/2 ML VIAL IV STA (13:16)
[2020-11-17] MEDS: IPRATROPIUM-ALBUTEROL 3 ML NEB INHALATION SCH ×2 (17:11→20:14)
[2020-11-17] MEDS: methylPREDNISolone SOD SUCCI 125 MG/2 ML VIAL IV SCH (17:19)
[2020-11-17] MEDS ORDERED: RIVAROXABAN 20 MG TAB PO SCH (17:30)
--- NOTE | 2020-11-17 18:17 | P.HPIM ---
History of Present Illness H&P Date: 11/17/20 Chief Complaint: Dyspnea 75-year-old man with medical history of paroxysmal atrial fibrillation, COPD presented with dyspnea. Patient says that he has been having dyspnea since a couple days. He says approximately 1 week ago he started to develop dizziness, and thought it was due to his medications and therefore stopped taking all of his medicine including all of his inhalers, blood pressure medicine, xarelto. Since that time is noticed increased dyspnea on exertion. He also has a pulse oximeter at home and noted that his oxygen saturation was around 90% on room ai r, and seemed to indicate his pulse was in the 120s to 150s. This prompted concern and his evaluation in the emergency room. Patient tells me that he has shortness of breath, mild cough, but denies: Fevers, chills, nausea, vomiting, chest pain, palpitations, syncope, presyncope, abdominal pain, constipation, diarrhea, dysuria, dyschezia, numbness/weakness. Patient is afebrile in the emergency room as well as hypertensive, 95% oxygen saturation at rest on room air while I was in the room. CBC and chemistries are baseline, troponin is negative. Covid was undetectable. EKG demonstrated atri al fibrillation with rapid ventricular response. Chest x-ray demonstrated COPD with possible developing infiltrate in the perihilum. Review of Systems All Systems reviewed and pertinent positives and negatives noted in HPI, all other symptoms are negative Past Medical History Past Medical History: Atrial Fibrillation, COPD, GI Bleed, Hypertension, Osteoarthritis (OA), Sleep Apnea/CPAP/BIPAP Additional Past Medical History / Comment(s): Nephrolithiasis (3 stones), arthritis bilateral hands/thumbs, PRUDENCIO without device, R knee "unhappy triad", L foot drop d/t sciatica, lower GI bleed thought d/t constipation, recent admission for flare up of COPD & dx. w/a-fib per pt. History of Any Multi-Drug Resistant Organisms: None Reported Past Surgical History: Hernia Repair, Orthopedic Surgery, Tonsillectomy Additional Past Surgical History / Comment(s): RT KNEE SCOPE, BILATERAL CATARACTS with lens implants. COLONOSCOPY with benign polypectomy, 06/05/15 umb hernia and R ing. hernia repair Past Anesthesia/Blood Transfusion Reactions: No Reported Reaction Past Psychological History: No Psychological Hx Reported Additional Psychological History / Comment(s): Pt lives alone. He is independent. He uses no assistive device. He drives. He has a dog. Smoking Status: Current every day smoker Past Alcohol Use History: Heavy Additional Past Alcohol Use History / Comment(s): Pt states he started smoking in 1975 and since 2016 has been a on and off smoker. A pack of cigarettes will last from 1-4 days. He states he drinks peppermint schnapps every couple days-a half glass. Past Drug Use History: None Reported - Past Family History Sister(s) Family Medical History: Cancer Father Family Medical History: Cancer Additional Family Medical History / Comment(s): Father had lung and colon cancer. He had cirrhosis. He just before his 80th birthday. He was a nonsmoker and a nondrinker. Mother Family Medical History: Diabetes Mellitus Additional Family Medical History / Comment(s): Mother was overweight. She at age 87 yrs. Medications and Allergies Home Medications Medication Instructions Recorded Confirmed Type traZODone HCL 150 mg PO HS 02/18/19 11/17/20 History Allergies Allergy/AdvReac Type Severity Reaction Status Date / Time No Known Allergies Allergy Verified 11/17/20 11:48 Physical Exam Osteopathic Statement: *. No significant issues noted on an osteopathic structural exam other than those noted in the History and Physical/Consult. Vitals: Vital Signs Temp Pulse Pulse Resp BP BP Pulse Ox 11/17/20 17:24 80 11/17/20 17:11 80 11/17/20 16:54 97.9 F 79 20 148/91 95 11/17/20 16:00 97.9 F 88 22 135/74 96 11/17/20 13:24 73 24 178/82 92 L 11/17/20 12:18 84 18 11/17/20 12:02 82 18 11/17/20 11:49 78 22 130/89 95 11/17/20 09:45 98.6 F 83 20 154/78 94 L Intake and Output 11/17/20 11/17/20 11/17/20 06:59 14:59 22:59 Other: Weight 102.058 kg 102.058 kg Gen: awake, alert HEENT: normocephalic, atraumatic, good hearing acuity, moist mucous membranes Resp: Impaired air exchange, breathing comfortably with no accessory muscle use, symmetric chest expansion, effuse wheezing, no crackles CVS: good distal perfusion x 4, tachycardic, irregular no murmurs GI: soft, NTTP, ND : no SPT, no CVAT, kaiser catheter not present MSK: no pitting edema, no clubbing Neuro: non-focal, moving all extremities Psych: cooperative, euthymic mood Results CBC & Chem 7: 11/17/20 10:59 11/17/20 10:59 Labs: Abnormal Lab Results - Last 24 Hours (Table) 11/17/20 11/17/20 Range/Units 10:59 10:59 RBC 3.97 L (4.30-5.90) m/uL MCV 102.6 H (80.0-100.0) fL MCH 35.1 H (25.0-35.0) pg Lymphocytes # 0.8 L (1.0-4.8) k/uL Carbon Dioxide 21 L (22-30) mmol/L Creatinine 1.32 H (0.66-1.25) mg/dL Glucose 101 H (74-99) mg/dL Thrombosis Risk Factor Assmnt - Choose All That Apply Any of the Below Risk Factors Present?: Yes Each Factor Represents 1 point: Abnormal pulmonary function (COPD), Obesity (BMI >25), Serious lung disease incl. pneumonia (< 1month) Other Risk Factors: Yes Each Risk Factor Represents 3 Points: Age 75 years or older Other congenital or acquired thrombophilia - If yes, enter type in comment: No Thrombosis Risk Factor Assessment Total Risk Factor Score: 6 Thrombosis Risk Factor Assessment Level: High Risk Assessment and Plan Assessment: Acute COPD exacerbation Acute hypoxemic respiratory failure -Admit inpatient -Nebulizers [id number] as well as as needed -Steroids -Azithromycin -Oxygen as needed -Resume home Symbicort -Outpatient pulmonology evaluation Paroxysmal atrial fibrillation with rapid ventricular response Chronic systolic heart failure, EF 30-35% -Resume home metoprolol -Resume home Xarelto -Strict ins and outs -Patient is euvolemic, no need for Lasix at this time -Repeat echocardiogram -Orthostatics -Outpatient cardiology evaluation Hypertension Hyperlipidemia Nonobstructive CAD Obstructive sleep apnea -Patient's only home medication is trazodone at this time -We'll monitor vital signs and adjust medication accordingly -Start patient on Lipitor 40 mg Patient is full code DVT prophylaxis with Xarelto
[2020-11-17] MEDS ORDERED: LORazepam 2 MG/ML INJ IV PRN ×3 (18:25)
[2020-11-17] MEDS ORDERED: THIAMINE 100 MG/ML 2 ML VIAL IM STA (18:25)
[2020-11-17 19:50] VITALS: RESP 18
[2020-11-17] MEDS: METOPROLOL TARTRATE 25 MG TAB PO SCH (19:59)
[2020-11-17] MEDS: SYMBICORT 160-4.5 MCG INHALER INHALATION SCH (20:14)
[2020-11-17] MEDS ORDERED: traZODone HCL 50 MG TAB PO SCH (21:00)
[2020-11-17] MEDS ORDERED: ATORVASTATIN 40 MG TAB PO SCH (21:00)
[2020-11-18] MEDS: methylPREDNISolone SOD SUCCI 125 MG/2 ML VIAL IV SCH ×3 (00:23→13:00)
[2020-11-18 06:28] LABS: African American GFR (CKD) 64 (>60 ml/min/1.73 sqM); Anion Gap 11 mmol/L; Blood Urea Nitrogen 21 mg/dL (9-20); Calcium 9.7 mg/dL (8.4-10.2); Carbon Dioxide 21 mmol/L (22-30); Chloride 106 mmol/L (98-107); Glucose 172 mg/dL (74-99); Magnesium 2.2 mg/dL (1.6-2.3); Non-African American GFR(CKD) 56 (>60 ml/min/1.73 sqM); Potassium 5.2 mmol/L (3.5-5.1); Sodium 138 mmol/L (137-145)
[2020-11-18] MEDS ORDERED: THIAMINE 100 MG TAB PO SCH (07:30)
[2020-11-18] MEDS: METOPROLOL TARTRATE 25 MG TAB PO SCH (08:21)
[2020-11-18] MEDS: IPRATROPIUM-ALBUTEROL 3 ML NEB INHALATION SCH ×3 (08:33→16:11)
[2020-11-18] MEDS: SYMBICORT 160-4.5 MCG INHALER INHALATION SCH (08:33)
[2020-11-18 09:00] VITALS: BP 138/84; TEMP 99
[2020-11-18] MEDS ORDERED: FOLIC ACID 1 MG TAB PO SCH (09:00)
[2020-11-18] MEDS ORDERED: AZITHROMYCIN 500 MG TAB PO SCH (09:00)
[2020-11-18] MEDS ORDERED: MULTIVITAMINS, THERA 1 EACH TAB PO SCH (09:00)
[2020-11-18 09:07] LABS: Basophils # (A) 0.01 X 10*3/uL (0.00-0.10); Basophils % (A) 0.2 %; Eosinophils # (A) 0 X 10*3/uL (0.04-0.35); Eosinophils % (A) 0 %; HCT 44.1 % (39.6-50.0); HGB 14.7 g/dL (13.0-17.0); Lymphocytes # (A) 0.36 X 10*3/uL (0.90-5.00); Lymphocytes % (A) 5.5 %; MCH 33.9 pg (27.0-32.0); MCHC 33.3 g/dL (32.0-37.0); MCV 101.6 fL (80.0-97.0); Mean Platelet Volume 9.7 fL (9.5-12.2); Monocytes # (A) 0.16 X 10*3/uL (0.20-1.00); Monocytes % (A) 2.5 %; Neutrophils # (A) 5.98 X 10*3/uL (1.80-7.70); Neutrophils % (A) 91.5 %; Platelet Count 269 X 10*3/uL (140-440); RBC 4.34 X 10*6/uL (4.40-5.60); RDW 12.9 % (11.5-14.5); WBC 6.53 X 10*3/uL (4.50-10.00)
[2020-11-18 12:00] VITALS: PULSE 73
--- NOTE | 2020-11-18 15:00 | ECHOF ---
Referral Reason:HFrEF MEASUREMENTS -------- HEIGHT: 182.9 cm WEIGHT: 102.1 kg BP: IVSd: 1.3 cm (0.6 - 1.1) LVIDd: 4.7 cm (3.9 - 5.3) LVPWd: 1.5 cm (0.6 - 1.1) EDV(Teich): 101 ml IVSs: 2.1 cm LVIDs: 2.5 cm LVPWs: 1.8 cm %IVS Thck: 55 % ESV(Teich): 22 ml EF(Teich): 78 % %FS: 46 % SV(Teich): 78 ml IVC: 14.74 mm LALs A4C: 5.7 cm LAAs A4C: 22.8 cm LAESV A-L A4C: 78 ml LAESV MOD A4C: 74 ml LALs A2C: 5.3 cm LAAs A2C: 17.0 cm LAESV A-L A2C: 46 ml LAESV MOD A2C: 44 ml LAESV(A-L): 62 ml LAESV Index (A-L): 27.68 ml/m Ao Diam: 3.2 cm (2.0 - 3.7) LA Diam: 3.7 cm (2.7 - 3.8) AV Cusp: 1.9 cm (1.5 - 2.6) EPSS: 0.7 cm MV E Yakov: 0.59 m/s MV DecT: 174 ms MV Dec Gilliam: 3.4 m/s MV A Yakov: 0.84 m/s MV E/A Ratio: 0.70 MV PHT: 51 ms MR Vmax: 1.13 m/s MR maxP.09 mmHg AV Vmax: 1.52 m/s AV maxP.20 mmHg AR Vmax: 2.19 m/s AR maxP.20 mmHg AR PHT: 524 ms AR Dec Time: 1809 ms AR Dec Gilliam: 1.2 m/s TR Vmax: 2.58 m/s TR maxP.53 mmHg RAP: 5.00 mmHg RVSP: 31.53 mmHg MV EF SLOPE: 41.18 mm/s (70 - 150) MV EXCURSION: 14.75 mm (> 18.000) FINDINGS -------- This was a technically adequate study. The left ventricular size is normal. There is mild concentric left ventricular hypertrophy. Overa ll left ventricular systolic function is low-normal with, an EF between 50 - 55 %. The right ventricle is normal in size. The left atrial size is normal. Normal LA size by volume 22+/-6 ml/m2. The right atrial size is normal. The aortic valve is trileaflet and appears structurally normal. The mitral valve is normal. There is trace mitral regurgitation. The tricuspid valve appears structurally normal. Mild tricuspid regurgitation present. Right vent ricular systolic pressure is normal at < 35 mmHg. There is no pulmonic regurgitation present. The aortic root size is normal. Normal inferior vena cava with normal inspiratory collapse consistent with estimated right atrial pre ssure of 5 mmHg. There is no pericardial effusion. CONCLUSIONS -------- 1. The left ventricular size is normal. 2. There is mild concentric left ventricular hypertrophy. 3. Overall left ventricular systolic function is low-normal with, an EF between 50 - 55 %. 4. There is trace mitral regurgitation. 5. Mild tricuspid regurgitation present. 6. There is no pericardial effusion. FIELD SALES AGENT: Mara Dickerson RDCS
--- NOTE | 2020-11-18 17:14 | P.DS ---
Providers Date of admission: 11/17/20 13:31 Expected date of discharge: 11/18/20 Attending physician: Sandra Brannon Primary care physician: Andrew Elizalde MD Hospital Course: Acute COPD exacerbation Acute hypoxemic respiratory failure -Admitted to inpatient, provided nebulizers ATC, steroids, azithromycin. Pt re- started on symbicort. Pt improved rapidly faster than expected and was prepared for dc by following day. He was provided additional 3 days of azithromycin and prednisone, as well as new prescription for symbicort. Pulm outpatient referral advised for PFTs, patient was counseled on this. Paroxysmal atrial fibrillation with rapid ventricular response -Resumed metoprolol and Xarelto at previous home doses. pt was euvolemic and did not require lasix. Echo repeat showed recovered EF, trace MR. Outpatient cardiology referral advised, patient was counseled on this. Hypertension Hyperlipidemia Nonobstructive CAD Obstructive sleep apnea -Patient's only home medication is trazodone at this time -Started patient on Lipitor 40 mg Assessment: Gen: awake, alert HEENT: normocephalic, atraumatic, good hearing acuity, moist mucous membranes Resp: Impaired air exchange, breathing comfortably with no accessory muscle use, symmetric chest expansion, effuse wheezing, no crackles CVS: good distal perfusion x 4, tachycardic, irregular no murmurs GI: soft, NTTP, ND : no SPT, no CVAT, kaiser catheter not present MSK: no pitting edema, no clubbing Neuro: non-focal, moving all extremities Psych: cooperative, euthymic mood Patient Condition at Discharge: Good Plan - Discharge Summary Discharge Rx Participant: No New Discharge Prescriptions: New Budesonide-Formot 160-4.5 Mcg [Symbicort 160-4.5 Mcg Inhaler] 2 puff INHALATION RT-BID #1 inh Azithromycin [Zithromax] 500 mg PO DAILY #3 tab Folic Acid 1 mg PO DAILY #14 tab Atorvastatin [Lipitor] 40 mg PO HS #30 tab Metoprolol Tartrate [Lopressor] 25 mg PO BID #60 tab Thiamine [Vitamin B-1] 100 mg PO BID-W/MEALS #28 tab Rivaroxaban [Xarelto] 20 mg PO W/SUPPER #30 tab Multivitamins, Thera [Multivitamin (formulary)] 1 each PO DAILY #14 tab predniSONE [Deltasone] 40 mg PO DAILY #6 tab Continue traZODone HCL 150 mg PO HS Discharge Medication List traZODone HCL 150 mg PO HS 02/18/19 [History] Atorvastatin [Lipitor] 40 mg PO HS #30 tab 11/18/20 [Rx] Azithromycin [Zithromax] 500 mg PO DAILY #3 tab 11/18/20 [Rx] Budesonide-Formot 160-4.5 Mcg [Symbicort 160-4.5 Mcg Inhaler] 2 puff INHALATION RT-BID #1 inh 11/18/20 [Rx] Folic Acid 1 mg PO DAILY #14 tab 11/18/20 [Rx] Metoprolol Tartrate [Lopressor] 25 mg PO BID #60 tab 11/18/20 [Rx] Multivitamins, Thera [Multivitamin (formulary)] 1 each PO DAILY #14 tab 11/18/20 [Rx] Rivaroxaban [Xarelto] 20 mg PO W/SUPPER #30 tab 11/18/20 [Rx] Thiamine [Vitamin B-1] 100 mg PO BID-W/MEALS #28 tab 11/18/20 [Rx] predniSONE [Deltasone] 40 mg PO DAILY #6 tab 11/18/20 [Rx] Follow up Appointment(s)/Referral(s): Nasir Nice DO [Doctor of Osteopathic Medicine] - 1 Week (patient to call office) Andrew Elizalde MD [Primary Care Provider] - 1-2 days Junior Munson MD [STAFF PHYSICIAN] - 1 Week (patient to call office.) Patient Instructions/Handouts: COPD (Chronic Obstructive Pulmonary Disease) (DC)
--- NOTE | 2020-11-21 07:29 | CDI ---
Documentation Clarification Form Date: 11/21/20 From: Pati Fiore Admit Date: 11/17/2020 01:31:00 PM Patient Name: Rony Hightower Visit Number: [id number] Discharge Date: 11/18/2020 04:37:00 PM ATTENTION: The Clinical Documentation Specialists (CDI) and [facility] Coding Staff appreciate your assistance in clarifying documentation. Please respond to the clarification below the line at the bottom and electronically sign. The CDI & [facility] Coding staff will review the response and follow-up if needed. Please note: Queries are made part of the Legal Health Record. If you have any questions, please contact the author of this message via ITS. Dr. Kathy Watkins, Pneumonia is documented in ED Note, but is not noted in subsequent documentation. Clarification is requested. History/Risk Factors: COPD, HTN w chronic systolic CHF, CAD, PAF, PRUDENCIO Clinical Indicators: He presents with dyspnea, starting approx a week ago. O2 sat at home 90. 11/17 CXR-COPD with right basilar and perihilar areas of chronic scarring, atelectasis or developing infiltrate. Treatment: Nebulilzer, Iv Rocephin Please clarify if the patient had pneumonia: [ ] Pneumonia confirmed, remains under treatment [ x ] Pneumonia ruled out [ ] Other condition, please specify [ ] Unable to determine MTDD
== END 2020-11-18 16:37 | disposition home or self-care (01) | DRG 190 ==
LOC: EC 09:43 → OBSVTOIN 13:31 → 6NMEDSUR 13:31
PROVIDERS: ADMIT Internal Medicine; ATTEND Internal Medicine
DX: J44.1 Chronic obstructive pulmonary disease with (acute) exacerbation (principal); J96.01 Acute respiratory failure with hypoxia; I50.22 Chronic systolic (congestive) heart failure; I11.0 Hypertensive heart disease with heart failure; I48.0 Paroxysmal atrial fibrillation; Z20.822 Contact with and (suspected) exposure to COVID-19; I25.10 Atherosclerotic heart disease of native coronary artery without angina pectoris; G47.33 Obstructive sleep apnea (adult) (pediatric); E78.5 Hyperlipidemia, unspecified; M19.041 Primary osteoarthritis, right hand; M19.042 Primary osteoarthritis, left hand; M54.32 Sciatica, left side; M21.372 Foot drop, left foot; F17.210 Nicotine dependence, cigarettes, uncomplicated; Z79.899 Other long term (current) drug therapy; Z90.89 Acquired absence of other organs; Z87.19 Personal history of other diseases of the digestive system; Z87.442 Personal history of urinary calculi; Z98.42 Cataract extraction status, left eye; Z98.41 Cataract extraction status, right eye; Z96.1 Presence of intraocular lens; Z60.2 Problems related to living alone; Z86.010 Personal history of colon polyps; Z98.890 Other specified postprocedural states; Z80.0 Family history of malignant neoplasm of digestive organs; Z80.1 Family history of malignant neoplasm of trachea, bronchus and lung; Z83.3 Family history of diabetes mellitus; Z83.79 Family history of other diseases of the digestive system; Z83.49 Family history of other endocrine, nutritional and metabolic diseases
CPT/HCPCS: 36415; 71046; 80048; 80053; 83735; 84484; 85025; 85610; 85730; 87040; 87635; 93005; 93306; 94640; 99285

== ENCOUNTER → 2021-02-27 | Outpatient (CLI) | payer MEDICARE ==
--- NOTE | 2021-02-28 09:38 | CT ---
"EXAMINATION TYPE: CT abdomen pelvis wo con DATE OF EXAM: 02/27/2021 COMPARISON: CT chest 02/19/2019 HISTORY: ABD DISTENTION CT DLP: 880.3 mGycm Automated exposure control for dose reduction was used. TECHNIQUE: Helical acquisition of images from the lung bases through the pelvis. Patient received or al contrast only. FINDINGS: There are coronary artery calcifications LUNG BASES: Some basilar scarring in the right middle lobe is noted, there is interval resolution of patient's pleural effusions on prior CT AORTA: No significant abnormality is appreciated. LIVER/GB: Dependent high density foci consistent with gallstones noted. The liver is within normal li mits. PANCREAS: No significant abnormality is seen. SPLEEN: No significant abnormality is seen. ADRENALS: No significant abnormality is seen. KIDNEYS: There is marked right-sided hydronephrosis. Proximal right ureteral calculus is present james uring 17 mm x 2.8 cm in cephalad to caudal dimension. Cortical cysts are present bilaterally REPRODUCTIVE ORGANS: Prostate is enlarged and shows associated calcification URINARY BLADDER: Thickened wall may be due to chronic bladder outlet obstruction or lack of distenti on BOWEL: Extensive diverticular changes associated with the colon especially in the sigmoid and descen ding colon. At the level of the splenic flexure there is a focal area of soft tissue attenuation pres ent, axial image 32 which shows an annular appearance, similar appearance present on axial image 30, findings are indeterminate, and could be due to lack of distention, similar appearance also noted tra nsverse colon, axial image 32, there is abnormal thickening also noted within the terminal ileum, axi al images #57 through 67. FREE AIR: No Free Air is visible. ASCITES: None visible. PELVIC ADENOPATHY: None visualized. RETROPERITONEAL ADENOPATHY: No Retroperitoneal Adenopathy visible. OSSEOUS STRUCTURES: Degenerative disc changes, facet arthropathy, probable degenerative change at th e sacroiliac joints noted. IMPRESSION: LARGE OBSTRUCTIVE PROXIMAL RIGHT URETERAL CALCULUS. Diverticulosis. Prostatic enlargement, probable c hronic bladder outlet obstruction. Abnormal areas of small bowel thickening in the terminal ileum and possibly within the colon, bowel surveillance has not been performed then it should be considered. C oronary artery disease. Additional findings above. A Yellow level critical message alert has been initiated for Nsair Nice DO via the [employer] 36 0 | Critical Results System on 02/28/2021 9:35 AM. This message alert has been sent to Nasir Nice DO via the preferences provided by the clinician for the receipt of Radiology Critical Findings. [facility] ID [id number]."
== END | disposition home or self-care (01) ==
LOC: RADCTMAIN 16:43
PROVIDERS: ATTEND Family Medicine
DX: N13.2 Hydronephrosis with renal and ureteral calculous obstruction (principal); K57.90 Diverticulosis of intestine, part unspecified, without perforation or abscess without bleeding; N40.0 Benign prostatic hyperplasia without lower urinary tract symptoms; I25.10 Atherosclerotic heart disease of native coronary artery without angina pectoris; N28.1 Cyst of kidney, acquired; R91.8 Other nonspecific abnormal finding of lung field
CPT/HCPCS: 36415; 74176; 82565; 84520

== ENCOUNTER → 2021-12-11 | Outpatient (CLI) | payer MEDICARE ==
[2021-12-11 18:00] LABS: Basophils # (A) 0.05 X 10*3/uL (0.00-0.10); Basophils % (A) 0.8 %; Eosinophils % (A) 4.5 %; HCT 35.8 % (39.6-50.0); HGB 11.9 g/dL (13.0-17.0); Immature Grans, Automated 0.2 %; Lymphocytes # (A) 0.87 X 10*3/uL (0.90-5.00); Lymphocytes % (A) 13.1 %; MCH 32.1 pg (27.0-32.0); MCHC 33.2 g/dL (32.0-37.0); MCV 96.5 fL (80.0-97.0); Mean Platelet Volume 9.8 fL (9.5-12.2); Monocytes # (A) 0.56 X 10*3/uL (0.20-1.00); Monocytes % (A) 8.4 %; NRBC Per 100 WBC 0 /100 WBCS (0.0-0.0); Neutrophils # (A) 4.84 X 10*3/uL (1.80-7.70); Platelet Count 216 X 10*3/uL (140-440); RBC 3.71 X 10*6/uL (4.40-5.60); RDW 14.3 % (11.5-14.5); WBC 6.63 X 10*3/uL (4.50-10.00)
[2021-12-11 18:40] LABS: ALT 10 U/L (10-49); AST 13 U/L (14-35); African American GFR (CKD) 52.2 (60.0-200.0); Albumin 3.9 g/dL (3.8-4.9); Albumin/Globulin Ratio 1.44 (1.60-3.17); Alkaline Phosphatase 103 U/L (41-126); BUN/Creat Ratio 16.05 Ratio (12.00-20.00); Blood Urea Nitrogen 23.6 mg/dL (9.0-27.0); Carbon Dioxide 21.7 mmol/L (20.0-27.5); Chloride 104 mmol/L (96-109); Chol/HDL Ratio 2.17 Ratio; Globulin 2.7 g/dL (1.6-3.3); Glucose 110 mg/dL (70-110); Non-African American GFR(CKD) 45.1 (60.0-200.0); Potassium 4.6 mmol/L (3.5-5.5); Sodium 140 mmol/L (135-145); Total Protein 6.7 g/dL (6.2-8.2); VLDL Calculation 16.36 mg/dL (5.00-40.00)
== END | disposition home or self-care (01) ==
LOC: LABWHC1 13:19
PROVIDERS: ATTEND Family Medicine
DX: Z12.5 Encounter for screening for malignant neoplasm of prostate (principal); E78.5 Hyperlipidemia, unspecified
CPT/HCPCS: 36415; 80053; 80061; 83036; 84153; 85025

== ENCOUNTER → 2022-12-02 | Outpatient (CLI) | payer MEDICARE ==
--- NOTE | 2022-12-02 16:06 | US ---
EXAMINATION TYPE: US carotid duplex BILAT DATE OF EXAM: 12/02/2022 COMPARISON: US 08/12/2018 CLINICAL INDICATION: Male, 77 years old with history of [id number] OCCLUSION AND STENOSIS OF CAROTID ARTER Y; Carotid atherosclerosis. Patient states he gets dizziness. Current smoker. Hx hypertension, hyperl ipidemia. TECHNIQUE: Carotid duplex ultrasound examination. Indirect Doppler criteria was utilized. 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 No elevated velo cities at this time. IMPRESSION: Less than 50% stenosis of the bilateral carotid bifurcations. Criteria for Assigning % of Stenosis / Diameter reduction (Estimation based on the indirect measurements of the internal carotid artery velocities (ICA PSV). 1. Normal (no stenosis)=ICA PSV < 125 cm/s: ratio < 2.0: ICA EDV<40 cm/s. 2. Less than 50% stenosis=ICA PSV < 125 cm/s: ratio < 2.0: ICA EDV<40 cm/s. 3. 50 to 69% stenosis=ICA PSV of 125 to 230 cm/s: ration 2.0 ? 4.0: ICA EDV 40-100 cm/s. 4. Greater than 70% stenosis to near occlusion= ICA PSV > 230 cm/s: ratio > 4.0: ICA EDV > 100 cm/s. 5. Near occlusion= ICA PSV velocities may be low or undetectable: variable ratio and ICA EDV. 6. Total occlusion=unable to detect flow.
--- NOTE | 2022-12-03 21:28 | CA ---
Transthoracic Echo Report Name: Rony Hightower Age: 77 Gender: M : 1945 Exam Date: 12/02/2022 14:58 Exam Location: [place] [facility] Ht (in): 74 Wt (lb): 210 Ordering Physician: Justin Houston MD Attending/Referring Phys: Sultana Rushing [employer] P[employer] Arely Zarate [facility] Procedure CPT: Indications: I65.29 Cardiac Hx: Technical Quality: Fair Contrast 1: Total Dose (mL): Contrast 2: Total Dose (mL): MEASUREMENTS (Male / Female) Normal Values 2D ECHO LV Diastolic Diameter PLAX 4.7 cm 4.2 - 5.9 / 3.9 - 5.3 cm LV Systolic Diameter PLAX 3.4 cm IVS Diastolic Thickness 1.1 cm 0.6 - 1.0 / 0.6 - 0.9 cm LVPW Diastolic Thickness 1.2 cm 0.6 - 1.0 / 0.6 - 0.9 cm LV Relative Wall Thickness 0.5 LVOT Diameter 2.0 cm Ascending Aorta Diameter 3.6 cm M-MODE Aortic Root Diameter MM 2.9 cm LA Systolic Diameter MM 4.1 cm LA Ao Ratio MM 1.4 AV Cusp Separation MM 1.9 cm DOPPLER AV Peak Velocity 158.9 cm/s AV Peak Gradient 10.1 mmHg AV Mean Velocity 116.7 cm/s AV Mean Gradient 6.0 mmHg AV Velocity Time Integral 36.1 cm LVOT Peak Velocity 94.2 cm/s LVOT Peak Gradient 3.5 mmHg LVOT Velocity Time Integral 20.6 cm LVOT Stroke Volume 64.7 cm??? LVOT Stroke Volume Index 29.2 ml/m??? LVOT Cardiac Index 2165.9 cm???/min???m??? AV Area Cont Eq vti 1.8 cm??? AV Area Cont Eq pk 1.9 cm??? Mitral E Point Velocity 42.8 cm/s Mitral A Point Velocity 59.1 cm/s Mitral E to A Ratio 0.7 MV Deceleration Time 352.8 ms TR Peak Velocity 278.7 cm/s TR Peak Gradient 31.1 mmHg Right Atrial Pressure 8.0 mmHg Pulmonary Artery Systolic Pressu 39.1 mmHg Right Ventricular Systolic Press 39.1 mmHg FINDINGS Left Ventricle Mildly increased left ventricular wall thickness. Left ventricular cavity size normal. Low normal left ventricular systolic function with no obvious regional wall motion abnormalities. Left ventricular ejection fraction is estimated at 50-55%. Right Ventricle mild pulmonary hypertension. right ventricular dilatation. Right Atrium Upper normal right atrial size. Left Atrium Mild left atrial dilatation. Mitral Valve Structurally normal mitral valve. Mild mitral regurgitation. Aortic Valve Aortic valve not well visualized. Aortic valve sclerosis. Mild aortic regurgitation. Tricuspid Valve Structurally normal tricuspid valve. Mild tricuspid regurgitation. Pulmonic Valve Pulmonic valve not well visualized. Pericardium No pericardial effusion. Aorta Normal size aortic root and proximal ascending aorta. CONCLUSIONS Left ventricular ejection fraction is estimated at 50-55%. No obvious regional wall motion abnormalities. Mild concentric LVH Mild aortic regurgitation Mild left atrial dilatation RVSP estimated at 40 mmHg Previewed by: Dr Dexter Pandey (Electronically Signed) Final Date: 03 December 2022 21:27
== END | disposition home or self-care (01) ==
LOC: RADECHMAIN 14:44
PROVIDERS: ATTEND Family Medicine
DX: I65.23 Occlusion and stenosis of bilateral carotid arteries (principal); I10 Essential (primary) hypertension; E78.5 Hyperlipidemia, unspecified; F17.200 Nicotine dependence, unspecified, uncomplicated
CPT/HCPCS: 93306; 93880

== ENCOUNTER → 2023-01-21 | Outpatient (CLI) | payer MEDICARE ==
--- NOTE | 2023-01-21 11:40 | CT ---
EXAMINATION TYPE: CT chest wo con DATE OF EXAM: 01/21/2023 COMPARISON: 02/19/2019 HISTORY: COPD CT DLP: 732 mGycm. Automated Exposure Control for Dose Reduction was Utilized. TECHNIQUE: CT scan of the thorax is performed without IV contrast. FINDINGS: LUNGS: The lungs are grossly clear, there is no concerning parenchymal mass or nodule identified. T here is no pleural effusion or pneumothorax seen. The tracheobronchial tree is patent. Diffuse emphy sematous changes. Areas of subsegmental consolidation involving the right lung. Within the right uppe r lobe there is a more nodular component 41 series 4 likely is post inflammatory or sequela of prior infection. Biapical scarring. There is soft tissue along the right tracheal margin likely related to retained secretion. MEDIASTINUM: Lack of IV contrast is noted to limit evaluation for mediastinal and especially hilar ad enopathy. There are no definitive greater than 1 cm hilar or mediastinal lymph nodes. No cardiomega ly or pericardial effusion is seen. Dense coronary artery calcification. Atherosclerotic change of th e aorta with ectasia but no evidence of aneurysm. OTHER: Gynecomastia. Hypertrophic and degenerative changes of spine. There is cholelithiasis. Bilater al hypodense lesions involving the kidneys as well as punctate right renal calculi. Lesion is indeter minate by noncontrast technique. Prominence of the right renal pelvis could not exclude hydronephrosis. Small hiatal hernia. IMPRESSION: 1. Diffuse emphysematous changes with an area of subsegmental nodular consolidation in the right uppe r lobe. This is an area of previous consolidation in 2020. They represent sequela of prior infection or inflammatory change. Although neoplastic process is not excluded with favor infection or inflammat ory etiology. Recommend [address] scan to confirm stability or resolution 2. Coronary artery calcifications. 3. Cholelithiasis. 4.Prominence of the right renal pelvis adjacent calculi. Mild hydronephrosis differential diagnosis. Area of concern only partially included [id number] Follow-up recommendations for incidental pulmonary nodules are per [employer] or [employer].
== END | disposition home or self-care (01) ==
LOC: RADCTMAIN 10:51
PROVIDERS: ATTEND Family Medicine
DX: J44.9 Chronic obstructive pulmonary disease, unspecified (principal); J43.9 Emphysema, unspecified; I25.10 Atherosclerotic heart disease of native coronary artery without angina pectoris; K80.20 Calculus of gallbladder without cholecystitis without obstruction
CPT/HCPCS: 71250

== ENCOUNTER → 2023-04-22 | Outpatient (CLI) | payer MEDICARE ==
--- NOTE | 2023-04-22 15:34 | CT ---
Exam: CT Chest without contrast. Date: 04/22/2023. Comparison: None History: Abnormal finding of lung garvin. Technique: CT examination of the chest was performed without contrast. Coronal and sagittal reformats were performed. CT dose lowering techniques were used, to include: automated exposure control, adjus tment for patient size, and/or use of iterative reconstruction. FINDINGS: Mediastinum and Emi: There is no axillary, mediastinal or hilar lymphadenopathy. Pleural and Pericardial spaces: There are no pleural or pericardial effusions. Upper Abdomen: Small gallstones are seen within the gallbladder. Visualized upper abdomen otherwise a ppears unremarkable. Cardiovascular: There is moderate vascular calcification throughout the thoracic aorta without eviden ce of aneurysmal dilation. Moderate patchy coronary artery calcifications are seen. Lung Parenchyma and Airways: There is moderate diffuse centrilobular emphysema. There are some bands of opacity within the right middle lobe which are likely atelectasis or scarring. Possibly post infla mmatory. There is no focal consolidation. The lungs otherwise appear clear. Bones: No fracture or aggressive osseous lesion. IMPRESSION: 1. No acute abnormality seen within the chest. 2. Moderate emphysema. 3. Cholelithiasis. 4. Coronary artery calcifications. 5. Area of likely scarring within the right middle lobe is unchanged.
== END | disposition home or self-care (01) ==
LOC: RADCTMAIN 13:23
PROVIDERS: ATTEND Family Medicine
DX: R91.8 Other nonspecific abnormal finding of lung field (principal); J43.2 Centrilobular emphysema; K80.20 Calculus of gallbladder without cholecystitis without obstruction; I25.10 Atherosclerotic heart disease of native coronary artery without angina pectoris
CPT/HCPCS: 71250

== ENCOUNTER → 2023-05-02 | Outpatient (CLI) | payer MEDICARE | END | disposition home or self-care (01) | LOC: LABWHC1 09:52 | PROVIDERS: ATTEND Family Medicine | DX: E53.8 Deficiency of other specified B group vitamins (principal); R97.20 Elevated prostate specific antigen [PSA] | CPT/HCPCS: 36415; 82607; 82746; 84153 ==

== ENCOUNTER → 2023-05-06 | Outpatient (CLI) | payer MEDICARE ==
--- NOTE | 2023-05-06 18:35 | CT ---
EXAMINATION TYPE: CT abdomen pelvis wo con CT DLP: 862 mGycm, Automated exposure control for dose reduction was used. DATE OF EXAM: 05/06/2023 8:21 AM COMPARISON: None. CLINICAL INDICATION:Male, 78 years old with history of N20.0 CALCULUS OF KIDNEY; Lt flank pain,histor y of renal stones TECHNIQUE: Axial CT of the abdomen and pelvis. Sagittal and coronal reformats were created on a [employer] workstation. Contrast used: mL of , (none if empty) Oral contrast used: without Oral Contrast (none if empty) FINDINGS: Exam is limited without contrast. LOWER CHEST: Bandlike scarring at the right middle lobe. Prominent pericardial fat. Partial eventrati on of the right lung base with protrusion of the hepatic dome up into the chest. No pleural effusion or lung consolidation. Heart size upper normal. Pericardial fat is prominent. No pericardial effusion. Moderate calcificatio ns of the aortic valve, coronary arteries, descending and abdominal aorta, and major branches. ABDOMEN LIVER: Unremarkable. GALLBLADDER AND BILE DUCTS: Multiple calcified small gallstones. No biliary ductal dilatation. PANCREAS: Mild diffuse atrophy without acute findings SPLEEN: Unremarkable. ADRENAL GLANDS: Unremarkable. KIDNEYS AND URETERS: There are multiple bilateral intrarenal calculi, larger and more numerous on the right. This includes 11.5 mm and 11 mm calculi in the right mid to lower poles, with other smaller c alculi also seen. Several rounded hypodense partially exophytic nodules of the kidneys are not fully characterized but the appearance favors cysts. There are a few punctate to small left renal calculi, up to 3 mm towards the lower pole. Some could be vascular. On the right, there is a calculus or calcu bert cluster measuring 9 x 4.3 mm in the proximal to mid ureter, around the L4-L5 level, with moderate to severe upstream hydroureteronephrosis and mild perinephric stranding. On the left, no visible robin culi in the ureter and no hydronephrosis. PELVIS BLADDER: Incompletely distended but grossly unremarkable. REPRODUCTIVE: Prostate is enlarged measuring about 5 cm transverse and contains multiple coarse paren chymal calcifications. This seems to indent the base of the nondistended bladder. ABDOMEN & PELVIS STOMACH AND BOWEL: Stomach and small bowel are nondistended, no evidence of obstruction. The append ix appears within normal limits. There is some stool and gas seen throughout the colon. There are nu merous diverticula, most concentrated in the sigmoid region without clear evidence of focal inflammat ion currently. PERITONEUM/RETROPERITONEUM: No evidence of pneumoperitoneum or free fluid. VASCULATURE: Moderate atherosclerotic calcifications are present throughout the abdominal aorta and i ts branches. Aorta is tortuous. No evidence of yeni aortic aneurysm. Bilobed ectasia of the infraren al aorta approaches 3 x 2.6 cm in greatest dimension. Calcifications continue throughout the iliac a rtery trees. LYMPH NODES: No gross evidence for lymphadenopathy. SOFT TISSUE/ABDOMINAL WALL: Small fat-containing bilateral inguinal hernias. Partially seen radiodens ity in the upper right scrotum, likely surgical clip related to vasectomy. MUSCULOSKELETAL: No acute osseous abnormalities. Osteopenia and moderate diffuse degenerative change s. Straightening of the normal lumbar lordosis and lower thoracic kyphosis. Mild/moderate S-shaped th oracolumbar scoliosis. IMPRESSION: 1. Multiple bilateral renal calculi, larger and more numerous on the right. 2. On the right, a 9 x 4.3 mm calculus or calculus cluster in the proximal to mid ureter, causes mod erate to severe upstream hydroureteronephrosis and mild perinephric stranding. On the left, no visibl e calculi in the ureter and no hydroureteronephrosis. 3. Multiple bilateral renal nodules, most likely cysts. 4. Cholelithiasis. 5. Enlarged prostate gland, as above. Clinical and PSA correlation recommended. 6. Other chronic and likely incidental findings, as described above.
== END | disposition home or self-care (01) ==
LOC: RADCTMAIN 07:54
PROVIDERS: ATTEND Family Medicine
DX: N13.2 Hydronephrosis with renal and ureteral calculous obstruction (principal); K80.20 Calculus of gallbladder without cholecystitis without obstruction; N40.0 Benign prostatic hyperplasia without lower urinary tract symptoms
CPT/HCPCS: 74176

== ENCOUNTER 2023-06-05 17:59 | Emergency (ER) | payer MEDICARE ==
[2023-06-05 18:49] VITALS: RESP 18
--- NOTE | 2023-06-05 19:25 | ED ---
Wound/Laceration HPI - General Chief Complaint: Wound/Laceration Stated Complaint: Foot injury Time Seen by Provider: 06/05/23 19:04 Source: patient Mode of arrival: ambulatory Limitations: no limitations - History of Present Illness Initial Comments: 78-year-old male presenting with chief complaint of laceration. Patient was cutting his toenails when he accidentally cut the tip of his second toe on the left foot. He now has a skin avulsion with continued bleeding. He is not on any blood thinners. He has tried applying pressure at home. He otherwise has otherwise no other complaints. Up-to-date on his tetanus shot. - Related Data Home Medications Medication Instructions Recorded Confirmed traZODone HCL 150 mg PO HS 02/18/19 11/17/20 Previous Rx's Medication Instructions Recorded Atorvastatin [Lipitor] 40 mg PO HS #30 tab 11/18/20 Azithromycin [Zithromax] 500 mg PO DAILY #3 tab 11/18/20 Budesonide-Formot 160-4.5 Mcg 2 puff INHALATION RT-BID #1 inh 11/18/20 [Symbicort 160-4.5 Mcg Inhaler] Folic Acid 1 mg PO DAILY #14 tab 11/18/20 Metoprolol Tartrate [Lopressor] 25 mg PO BID #60 tab 11/18/20 Multivitamins, Thera [Multivitamin 1 each PO DAILY #14 tab 11/18/20 (formulary)] Rivaroxaban [Xarelto] 20 mg PO W/SUPPER #30 tab 11/18/20 Thiamine [Vitamin B-1] 100 mg PO BID-W/MEALS #28 tab 11/18/20 predniSONE [Deltasone] 40 mg PO DAILY #6 tab 11/18/20 Cephalexin [Keflex] 500 mg PO Q12HR 5 Days #10 cap 06/05/23 Allergies Allergy/AdvReac Type Severity Reaction Status Date / Time No Known Allergies Allergy Verified 06/05/23 18:15 Review of Systems ROS Statement: Those systems with pertinent positive or pertinent negative responses have been documented in the HPI. ROS Other: All systems not noted in ROS Statement are negative. Past Medical History Past Medical History: Atrial Fibrillation, COPD, GI Bleed, Hypertension, Osteoarthritis (OA), Sleep Apnea/CPAP/BIPAP Additional Past Medical History / Comment(s): Nephrolithiasis (3 stones), arthritis bilateral hands/thumbs, PRUDENCIO without device, R knee "unhappy triad", L foot drop d/t sciatica, lower GI bleed thought d/t constipation, recent admission for flare up of COPD & dx. w/a-fib per pt. History of Any Multi-Drug Resistant Organisms: None Reported Past Surgical History: Hernia Repair, Orthopedic Surgery, Tonsillectomy Additional Past Surgical History / Comment(s): RT KNEE SCOPE, BILATERAL CATARACTS with lens implants. COLONOSCOPY with benign polypectomy, 06/05/15 umb hernia and R ing. hernia repair Past Anesthesia/Blood Transfusion Reactions: No Reported Reaction Past Psychological History: No Psychological Hx Reported Smoking Status: Current every day smoker Past Alcohol Use History: Heavy Past Drug Use History: None Reported - Past Family History Sister(s) Family Medical History: Cancer Father Family Medical History: Cancer Additional Family Medical History / Comment(s): Father had lung and colon cancer. He had cirrhosis. He just before his 80th birthday. He was a nonsmoker and a nondrinker. Mother Family Medical History: Diabetes Mellitus Additional Family Medical History / Comment(s): Mother was overweight. She at age 87 yrs. General Exam Limitations: no limitations General appearance: alert, in no apparent distress Head exam: Present: atraumatic, normocephalic Eye exam: Present: normal appearance, EOMI Neck exam: Present: normal inspection Respiratory exam: Absent: respiratory distress Cardiovascular Exam: Present: regular rate Neurological exam: Present: alert, oriented X3 Psychiatric exam: Present: normal affect, normal mood Skin exam: Present: abrasion (Left second toe) Course Vital Signs 06/05/23 06/05/23 18:14 20:56 Temperature 98 F 98.2 F Pulse Rate 70 74 Respiratory 18 18 Rate Blood Pressure 138/73 132/70 O2 Sat by Pulse 96 96 Oximetry Medical Decision Making - Medical Decision Making Was pt. sent in by a medical professional or institution (, PA, CHILD HEALTH ASSOCIATE, urgent care, hospital, or senior care...) When possible be specific @ -No Did you speak to anyone other than the patient for history (EMS, parent, family, police, friend...)? What history was obtained from this source @ -No Did you review nursing and triage notes (agree or disagree)? Why? @ -I reviewed and agree with nursing and triage notes Were old charts reviewed (outside hosp., previous admission, EMS record, old EKG, old radiological studies, urgent care reports/EKG's, senior care records)? Report findings @ -No old charts were reviewed Differential Diagnosis (chest pain, altered mental status, abdominal pain women, abdominal pain men, vaginal bleeding, weakness, fever, dyspnea, syncope, headache, dizziness, GI bleed, back pain, seizure, CVA, palpatations, mental health, musculoskeletal)? @ -Differential includes laceration, skin avulsion, body, this is not an all- inclusive list EKG interpreted by me (3pts min.). @ -As above X-rays interpreted by me (1pt min.). @ -None done CT interpreted by me (1pt min.). @ -None done U/S interpreted by me (1pt. min.). @ -None done What testing was considered but not performed or refused? (CT, X-rays, U/S, labs)? Why? @ -None What meds were considered but not given or refused? Why? @ -None Did you discuss the management of the patient with other professionals (professionals i.e. , PA, CHILD HEALTH ASSOCIATE, lab, RT, psych nurse, social worker masters, dental technology advisor, teacher, bsa/aml compliance officer, counseling case manager)? Give summary @ -No Was smoking cessation discussed for >3mins.? @ -No Was critical care preformed (if so, how long)? @ -No Were there social determinants of health that impacted care today? How? (Homelessness, low income, unemployed, alcoholism, drug addiction, transportation, low edu. Level, literacy, decrease access to med. care, mcc, rehab)? @ -No Was there de-escalation of care discussed even if they declined (Discuss DNR or withdrawal of care, Hospice)? DNR status @ -No What co-morbidities impacted this encounter? (DM, HTN, Smoking, COPD, CAD, Cancer, CVA, ARF, Chemo, Hep., AIDS, mental health diagnosis, sleep apnea, morbid obesity)? @ -None Was patient admitted / discharged? Hospital course, mention meds given and route, prescriptions, significant lab abnormalities, going to OR and other pertinent info. @ -78-year-old male presenting with chief complaint of bleeding abrasion to the left second toe after cutting his toenails tonight. No blood thinners. His tetanus is up-to-date. Let solution is applied. On reassessment the bleeding is well-controlled. Surgifoam was applied and the wound was dressed. Patient is started on Keflex for prophylaxis. He is educated on 10. Discharged home. Follow-up with PCP. Report back to ER with any new or worsening symptoms. Discussed return parameters and answered all questions. Patient conveyed verbal understanding and agreed to the plan. I discussed this case in detail with my attending Dr. Becker Undiagnosed new problem with uncertain prognosis? @ -No Drug Therapy requiring intensive monitoring for toxicity (Heparin, Nitro, Insulin, Cardizem)? @ -No Were any procedures done? @ -No Diagnosis/symptom? @ -Abrasion Acute, or Chronic, or Acute on Chronic? @ -Acute Uncomplicated (without systemic symptoms) or Complicated (systemic symptoms)? @ -Uncomplicated Side effects of treatment? @ -No Exacerbation, Progression, or Severe Exacerbation? @ -No Poses a threat to life or bodily function? How? (Chest pain, USA, NH, pneumonia, PE, COPD, DKA, ARF, appy, cholecystitis, CVA, Diverticulitis, Homicidal, Suicidal, threat to staff... and all critical care pts) @ -No Disposition Clinical Impression: Abrasion Disposition: HOME SELF-CARE Condition: Good Instructions (If sedation given, give patient instructions): Abrasion (ED) Additional Instructions: Follow-up with your PCP. Report back to ER with any new or worsening symptoms. Gelfoam can be removed in 3 days if it has not already fallen off on its own. Keep the wound clean dry and covered. Take antibiotics as prescribed. Prescriptions: Cephalexin [Keflex] 500 mg PO Q12HR 5 Days #10 cap Is patient prescribed a controlled substance at d/c from ED?: No Referrals: Justin Houston MD [Primary Care Provider] - 1-2 days Time of Disposition: 20:23
[2023-06-05] MEDS: LIDOCAINE/EPINEPHR/TETRACAINE 5 ML BOTTLE TOPICAL ONE (19:30)
[2023-06-05 21:22] VITALS: BP 132/70; PULSE 74; TEMP 98.2
== END 2023-06-05 20:57 | disposition home or self-care (01) ==
LOC: EC 17:59
DX: S90.812A Abrasion, left foot, initial encounter (principal); F17.200 Nicotine dependence, unspecified, uncomplicated; W26.8XXA Contact with other sharp object(s), not elsewhere classified, initial encounter
CPT/HCPCS: 99283

== ENCOUNTER → 2023-06-10 | Outpatient (CLI) | payer MEDICARE ==
[2023-06-10 14:55] LABS: HCT 37.7 % (39.6-50.0); HGB 12.4 g/dL (13.0-17.0); MCH 34.9 pg (27.0-32.0); MCHC 32.9 g/dL (32.0-37.0); MCV 106.2 FL (80.0-97.0); NRBC Per 100 WBC 0 X 10*3/uL (0.00-0.01); Platelet Count 160 X 10*3/uL (140-440); RBC 3.55 X 10*6/uL (4.40-5.60); RDW 13.2 % (11.5-14.5); WBC 5.95 X 10*3/uL (4.50-10.00)
[2023-06-10 15:27] LABS: Blood Urea Nitrogen 18.6 mg/dL (9.0-27.0); Carbon Dioxide 23.5 mmol/L (21.6-31.8); Chloride 104 mmol/L (96-109); Glucose 104 mg/dL (70-110); Potassium 4.5 mmol/L (3.5-5.5); Sodium 140 mmol/L (135-145)
[2023-06-10 16:25] LABS: Appearance,Urine Clear (Clear); Bilirubin,Urine Negative (Negative); Blood,Urine Moderate (Negative); Color,Urine Yellow (Yellow); Ketones,Urine Negative (Negative); Nitrite,Urine Negative (Negative); Specific Gravity,Urine 1.017 (1.001-1.030); Urobilinogen,Urine 0.2 E.U./DL
[2023-06-10 16:41] LABS: Bacteria,Urine None Seen (None Seen)
[2023-06-10 16:56] LABS: Basophils # (A) 0.07 X 10*3/uL (0.00-0.10); Basophils % (A) 1.2 %; Eosinophils # (A) 0.32 X 10*3/uL (0.04-0.35); Eosinophils % (A) 5.4 %; Lymphocytes # (A) 0.99 X 10*3/uL (0.90-5.00); Lymphocytes % (A) 16.6 %; Macrocytosis (M) 2+; Monocytes # (A) 0.53 X 10*3/uL (0.20-1.00); Monocytes % (A) 8.9 %; Neutrophils # (A) 4.03 X 10*3/uL (1.80-7.70); Neutrophils % (A) 67.7 %
== END | disposition home or self-care (01) ==
LOC: LABPAT 09:12
PROVIDERS: ATTEND Urology
DX: Z01.812 Encounter for preprocedural laboratory examination (principal); N20.0 Calculus of kidney; N20.1 Calculus of ureter
CPT/HCPCS: 80048; 81001; 85025; 86850; 86900; 86901; 87086

== ENCOUNTER 2023-06-16 08:48 | Day surgery (SDC) | payer MEDICARE ==
--- NOTE | 2023-06-15 18:45 | P.GSHP ---
History of Present Illness H&P Date: 06/15/23 78 yo male with a history of stones. He had right flank pain. He was found to have a large collection of proximal ureteral stones[> 1cm] and multiple mid and lower pole stones. The whole stone burden is greater than [address] Dunham who gave him several treatment options. He was referred to me for a right pcnl. I discussed the procedure, risks and complications including infection, bleeding, pain , failure to access, injury to the kidney or adjacent organs among otheres. He comes for this procedure. - Constitutional Constitutional: Denies chills, Denies fever - EENT Eyes: denies blurred vision, denies pain Ears, nose, mouth and throat: Denies headache, Denies sore throat - Cardiovascular Cardiovascular: Denies chest pain, Denies shortness of breath - Respiratory Respiratory: Denies cough, Denies 7 - Gastrointestinal Gastrointestinal: Denies abdominal pain, Denies diarrhea, Denies nausea, Denies vomiting - Genitourinary (Female) Genitourinary: Denies dysuria, Denies hematuria - Genitourinary (Male) Genitourinary: Denies dysuria, Denies hematuria - Musculoskeletal Musculoskeletal: Denies myalgias - Integumentary Integumentary: Denies pruritus, Denies rash - Neurological Neurological: Denies numbness, Denies weakness - Psychiatric Psychiatric: Denies anxiety, Denies depression - Endocrine Endocrine: Denies fatigue, Denies weight change Past Medical History Past Medical History: Atrial Fibrillation, COPD, GI Bleed, Hyperlipidemia, Hypertension, Osteoarthritis (OA), Sleep Apnea/CPAP/BIPAP Additional Past Medical History / Comment(s): Nephrolithiasis (3 stones), arthritis bilateral hands/thumbs, PRUDENCIO without device, R knee "unhappy triad", L foot drop d/t sciatica, lower GI bleed thought d/t constipation, recent admission for flare up of COPD & dx. w/a-fib per pt. History of Any Multi-Drug Resistant Organisms: None Reported Past Surgical History: Hernia Repair, Orthopedic Surgery, Tonsillectomy Additional Past Surgical History / Comment(s): RT KNEE SCOPE, BILATERAL CATARACTS with lens implants. COLONOSCOPY with benign polypectomy, 06/05/15 umb hernia and R ing. hernia repair Past Anesthesia/Blood Transfusion Reactions: No Reported Reaction Additional Past Anesthesia/Blood Transfusion Reaction / Comment(s): no blood tx hx Smoking Status: Current every day smoker - Past Family History Sister(s) Family Medical History: Cancer Father Family Medical History: Cancer Additional Family Medical History / Comment(s): Father had lung and colon cancer. He had cirrhosis. He just before his 80th birthday. He was a nonsmoker and a nondrinker. Mother Family Medical History: Diabetes Mellitus Additional Family Medical History / Comment(s): Mother was overweight. She at age 87 yrs. Medications and Allergies Home Medications Medication Instructions Recorded Confirmed Type traZODone HCL 75 mg PO HS PRN 02/18/19 06/11/23 History Atorvastatin [Lipitor] 40 mg PO HS #30 tab 11/18/20 06/11/23 Rx Budesonide-Formot 160-4.5 Mcg 2 puff INHALATION RT-BID #1 inh 11/18/20 06/11/23 Rx [Symbicort 160-4.5 Mcg Inhaler] Folic Acid 1 mg PO DAILY #14 tab 11/18/20 06/11/23 Rx Metoprolol Tartrate [Lopressor] 25 mg PO BID #60 tab 11/18/20 06/11/23 Rx Multivitamins, Thera [Multivitamin 1 each PO DAILY #14 tab 11/18/20 06/11/23 Rx (formulary)] Rivaroxaban [Xarelto] 20 mg PO W/SUPPER #30 tab 11/18/20 06/11/23 Rx Vit B12 Complex(Unk) 1 tab PO DAILY 06/11/23 06/11/23 History Allergies Allergy/AdvReac Type Severity Reaction Status Date / Time No Known Allergies Allergy Verified 06/11/23 14:01 Surgical - Exam - General well developed, well nourished, no distress - Eyes normal ocular movement, no icteric - ENT no hearing loss, no congestion - Neck no masses, trachea midline - Respiratory normal respiratory effort, clear to auscultation - Abdomen Abdomen: soft, non tender, no guarding, no rigid, no rebound - Integumentary no rash, no abnormal pigmentation - Neurologic no disoriented, no combative - Psychiatric oriented to time, oriented to person, oriented to place, speech is normal, memory intact Results - Imaging CT scan - abdomen: report reviewed CT scan - pelvis: report reviewed, image reviewed Assessment and Plan Assessment: Impression: Right renal and ureteral stones [large,> 2cm] Plan: Right PCNL.
[~2023-06-16 08:48] MED LIST: HYDROmorphone 0.5 MG/0.5 ML SYRINGE IVP PRN
--- NOTE | 2023-06-16 09:38 | XR ---
EXAMINATION TYPE: XR KUB DATE OF EXAM: 06/16/2023 COMPARISON: 05/06/2023 HISTORY: Pain TECHNIQUE: One view abdominal series FINDINGS: The osseous structures are intact. The bowel gas pattern is nonspecific. Scoliosis with degenerative changes in the spine. There is bilateral hip arthropathy. Vascular calcifications noted. Right-sided SI joint arthropathy. Motion artifact limits assessment for calcifications. Left renal outline is obscured by bowel content . There is a calcification suspected overlying the mid to lower pole right kidney measuring 1.6 cm.. IMPRESSION: 1. Nonspecific abdomen.
[2023-06-16] MEDS: LACTATED RINGERS 1,000 ML IV SCH (10:08)
[2023-06-16] MEDS: ONDANSETRON 4 MG/2 ML VIAL ONE (10:08)
[2023-06-16] MEDS: DEXAMETHASONE SOD PHOSPHATE 4 MG/ML 1 ML VIAL IVP ONE (10:09)
[2023-06-16] MEDS ORDERED: ROCURONIUM 10 MG/ML (5 ML VIAL) IV ONE (10:54)
[2023-06-16] MEDS ORDERED: NEOSTIGMINE 1 MG/ML 10 ML VIAL ONE (10:54)
[2023-06-16] MEDS ORDERED: fentaNYL (PF) 50 MCG/ML 2 ML AMP ONE (10:54)
[2023-06-16] MEDS ORDERED: SUCCINYLCHOLINE CHLORIDE 200 MG/10 ML VIAL IV ONE (10:54)
[2023-06-16] MEDS ORDERED: MIDAZOLAM 2 MG/2 ML VIAL ONE (10:54)
[2023-06-16] MEDS ORDERED: GLYCOPYRROLATE 0.2 MG/ML 2 ML VIAL ONE (10:54)
[2023-06-16] MEDS ORDERED: ePHEDrine 50 MG/ML 1 ML VIAL ONE (10:54)
[2023-06-16] MEDS ORDERED: PROPOFOL 10 MG/ML 20 ML VIAL IV ONE (10:54)
[2023-06-16] MEDS ORDERED: LIDOCAINE 1% INJ 10MG/ML (20 ML MDV) ONE (10:54)
[2023-06-16] MEDS: AMPICILLIN 1,000 MG in SODIUM CHLORIDE 0.9% 50 ML IVPB PRN (10:59)
[2023-06-16] MEDS: GENTAMICIN 140 MG in SODIUM CHLORIDE 0.9% 100 ML IVPB PRN (11:20)
[2023-06-16] MEDS: IOHEXOL 350 MG/ML 100 ML in EMPTY BAG 1 BAG IRRIGATION ONE (11:50)
[2023-06-16] MEDS: LACTATED RINGERS 1,000 ML IV ONE (13:06)
[2023-06-16] MEDS ORDERED: ONDANSETRON 4 MG/2 ML VIAL IVP PRN (13:22)
[2023-06-16] MEDS ORDERED: ACETAMINOPHEN TAB 325 MG TAB PO PRN (13:22)
[2023-06-16] MEDS ORDERED: MAG HYDROX/AL HYDROX/SIMETH 30 ML CUP PO PRN (13:22)
[2023-06-16] MEDS ORDERED: NALOXONE 0.4 MG/ML 1 ML VIAL IV PRN (13:24)
--- NOTE | 2023-06-16 13:31 | P.OP ---
Preoperative Diagnosis: right renal and ureteral calculi, large Postoperative Diagnosis: same Procedure(s) Performed: cystoscopy, right retrograde pyelogram, placement of occluding balloon catheter right, percutaneous nephrostomy placement () percutaneous nephrostolithotomy with laser lithotripsy, placement of 6 x 26 antegrade double- J catheter, placement of 10-Stateless J nephrostomy Anesthesia: HELIO Surgeon: Lavelle Barksdale Estimated Blood Loss (ml): 25 Pathology: none sent (stone) Condition: stable Disposition: PACU Indications for Procedure: patient is a 78. He's had problems with kidney stones. He had several attempts to remove the large proximal ureteral stone at another urologic office. He came to us and is referred to me for further evaluation. His 2 large stones in the right lower pole calyx. I dilated collecting system down to an obstructing ureteral stone in the mid to proximal ureter on the right side. He comes for percutaneous nephrostomy percutaneous ureteroscopy to remove the stones. Description of Procedure: patient brought to the operating suite. Given a general anesthetic on the operating table. He's placed lithotomy position with a sterile prep and drape. Cystoscopy a Foroblique lens and 21-Stateless sheath identifies a normal anterior urethra. Obstructing prostatic urethra and trabeculated bladder and normal ureteral orifices. Within a cone-tipped catheter right retrograde pyelogram performed showing a normal distal ureter just above the iliac crest where there is no obstruction, stone and I dilated proximal ureter. I then pass a 5-Stateless occluding balloon catheter up to the level a stone. I then injected air to outline the collecting system. The cystoscope was removed. A 16-Stateless Omer catheter is used to secured to the ureteral catheter. The patient is placed in a prone position with care to airways and extremities. I then place percutaneous access to a right middle pole calyx this will be dictated separately. I then dilated the percutaneous access tract to 30-Stateless and introduced the rigid sheath into the collecting system. I passed the rigid scope into the collecting system and remove several smaller stones with the grasping forceps. I then pass the flexible scope into the proximal ureter and identify obstructing stone in the mid to proximal ureter. It appears to be embedded in the wall of the ureter. I then passed throughout the collecting system and identify another greater than 1 cm lower pole calyceal stone. There are multiple other stones that are removed. The stone in the proximal ureter is greater than a centimeter. I introduced the flexible nephroscope down to the proximal ureter and with the 365 laser probe I break up the embedded stone out of the right proximal ureter. I then pass a flexible ureteroscope down the right ureter all the way into the bladder to make sure there is no remaining stone and there is none. A stent will be placed in the right ureter at the end of the case due to the edema chronic irritation due to the embedded stone. I passed the flexible nephroscope throughout the collecting system and identify small stones are removed. I then identified a 1 cm lower pole stone that is lasered and removed. I then looked throughout the collecting system and the proximal ureter and there is no remaining stone. Over the working wire then pass a 6 x 26 double-J catheter that is observed to coil in the bladder or endoscopically. I then removed the wire and make sure the proximal ureteral catheter coils in the pelvis and it does. I then reintroduced the working wire down the ureter and over the working wire pass a 10 J nephrostomy tube. The coils curls in the renal pelvis. I then pass a nephroscope into the renal pelvis to make sure that the nephrostomy tube and double-J catheter are not interlooped and they are not. I then removed the nephrostomy sheath and secure the nephrostomy tube to the skin with 2-0 silk. The patient is awake and returned recovery room good condition. Blood loss is approximately 25 mL.
--- NOTE | 2023-06-16 13:35 | P.PCN ---
Date of Procedure: 06/16/23 Preoperative Diagnosis: right renal and ureteral calculi (large, greater than 2 cm) Postoperative Diagnosis: same Procedure(s) Performed: placement of right percutaneous nephrostomy tube access Anesthesia: MORGANA Surgeon: Lavelle Barksdale Estimated Blood Loss (ml): 0 Pathology: none sent Condition: stable Disposition: PACU Indications for Procedure: the patient is 78 undergoing a rightpercutaneous nephrostolithotomy. I will performedrightpercutaneous nephrostomy tube access Description of Procedure: the patient has been previously anesthetized. The occluding balloon catheter has been placed in the right ureter. The patient is known a prone position with care to airways and extremities. The prep is done. Previously had injected air through the ureteral catheter to outline the collecting system. A right mid to upper pole calyx is identified which allows me access to the renal pelvis as well as the lower pole or other stones remaining. A 21-gauge Chiba needle is then introduced into a middle to upper pole calyx. Once I'm sure I am in the c jazmyne introduce a copious mandrel wire through the she will needle and the wires directed down the proximal ureter. Over the wire then passed a 6-Danish dilating catheter over the wire into the right renal pelvis. The inner catheter and scope wire are removed and I passed an 035 Super Stiff wire down the ureter. Over the superstiff wire then pass an 8-10-Danish dilating catheter. 8 a catheter removed and a second safety wires passed down the ureter. Then over the working wire a nephrostomy tract dilating balloon is passed and the tract was dilated to 30-Danish. A working sheath was placed over the dilating catheter into the right mid to upper pole calyx that has been intubated.
--- NOTE | 2023-06-16 14:20 | FL ---
EXAMINATION TYPE: FL Perc Nephrostomy New Access DATE OF EXAM: 06/16/2023 COMPARISON: NONE HISTORY: Nephrostomy TECHNIQUE: Fluoroscopy. FINDINGS: Fluoroscopic guidance was provided during procedure performed. Fluoroscopic time was utili zed during the procedure and 21 spot images was acquired. Total dose area product (DAP) in uGy*m?, m Gy*cm? (or similar): 71.909. IMPRESSION: As Above.
[2023-06-16] MEDS: HYDROmorphone PCA 10 MG/50 ML BAG IV PRN (15:25)
[2023-06-16] MEDS: DEXTROSE 5%-0.45% NACL 1,000 ML IV SCH (15:32)
[2023-06-16] MEDS: DEXAMETHASONE SOD PHOSPHATE 10 MG/ML 1 ML VIAL IVP STA (17:27)
[2023-06-16] MEDS: SYMBICORT 160-4.5 MCG INHALER INHALATION SCH (18:20)
[2023-06-16] MEDS: METOPROLOL TARTRATE 25 MG TAB PO SCH (20:46)
[2023-06-16] MEDS: ATORVASTATIN 40 MG TAB PO SCH (20:46)
--- NOTE | 2023-06-17 12:42 | P.DS ---
Providers Expected date of discharge: 06/17/23 Attending physician: Lavelle Barksdale Primary care physician: [facility] Course: On the day of admission, the patient underwent an uncomplicated right PCNL. He was found to have calculi impacted within the right proximal to mid ureter, and a ureteral stent was placed in addition to the nephrostomy tube. On the first postoperative day, the patient reported minimal discomfort. He denied shortness of breath. Both the nephrostomy tube and Omer catheter were draining urine which was light pink in color, without clots. Procedures: Right percutaneous nephrolithotomy (PCNL) on June 16, 2023. Patient Condition at Discharge: Good Plan - Discharge Summary Discharge Rx Participant: No New Discharge Prescriptions: New Tamsulosin [Flomax] 0.4 mg PO DAILY 30 Days #30 cap HYDROcodone/APAP 5-325MG [[place] 5-325] 1 - 2 tab PO Q6HR PRN #6 tab PRN Reason: Pain HYDROcodone/APAP 5-325MG [[place] 5-325] 1 tab PO Q6HR PRN #6 tab PRN Reason: Pain No Action traZODone HCL 75 mg PO HS PRN PRN Reason: Insomnia Budesonide-Formot 160-4.5 Mcg [Symbicort 160-4.5 Mcg Inhaler] 2 puff INHALATION RT-BID #1 inh Folic Acid 1 mg PO DAILY #14 tab Atorvastatin [Lipitor] 40 mg PO HS #30 tab Metoprolol Tartrate [Lopressor] 25 mg PO BID #60 tab Rivaroxaban [Xarelto] 20 mg PO W/SUPPER #30 tab Multivitamins, Thera [Multivitamin (formulary)] 1 each PO DAILY #14 tab Vit B12 Complex(Unk) 1 tab PO DAILY Discharge Medication List traZODone HCL 75 mg PO HS PRN 02/18/19 [History] Atorvastatin [Lipitor] 40 mg PO HS #30 tab 11/18/20 [Rx] Budesonide-Formot 160-4.5 Mcg [Symbicort 160-4.5 Mcg Inhaler] 2 puff INHALATION RT-BID #1 inh 11/18/20 [Rx] Folic Acid 1 mg PO DAILY #14 tab 11/18/20 [Rx] Metoprolol Tartrate [Lopressor] 25 mg PO BID #60 tab 10/09/21 [Rx] Multivitamins, Thera [Multivitamin (formulary)] 1 each PO DAILY #14 tab 11/18/20 [Rx] Rivaroxaban [Xarelto] 20 mg PO W/SUPPER #30 tab 11/18/20 [Rx] Vit B12 Complex(Unk) 1 tab PO DAILY 06/11/23 [History] HYDROcodone/APAP 5-325MG [[place] 5-325] 1 - 2 tab PO Q6HR PRN #6 tab 06/17/23 [Rx] HYDROcodone/APAP 5-325MG [[place] 5-325] 1 tab PO Q6HR PRN #6 tab 06/17/23 [Rx] Tamsulosin [Flomax] 0.4 mg PO DAILY 30 Days #30 cap 06/17/23 [Rx] Activity/Diet/Wound Care/Special Instructions: Discharge home with right nephrostomy tube. Encourage oral fluids. Follow-up with Dr. Barksdale on June 22 or June 23, at which time the nephrostomy tube will be removed. Discharge Disposition: HOME SELF-CARE
[2023-06-17 13:42] VITALS: BP 102/60; PULSE 51; RESP 18; TEMP 98.3
== END 2023-06-17 14:09 | disposition home or self-care (01) ==
LOC: OR 08:48 → 5NMEDONC 13:09 → OR 06-17 14:09
PROVIDERS: ATTEND Urology
DX: N20.2 Calculus of kidney with calculus of ureter (principal); Z79.51 Long term (current) use of inhaled steroids; Z79.899 Other long term (current) drug therapy; Z79.01 Long term (current) use of anticoagulants
CPT/HCPCS: 94640 ×2; 94760; 82365; 50432; 74018; C2625; C2628; C1769 ×2; C1894; J1100 ×2; J2405; J1580; J0290; Q9967; J1170

== ENCOUNTER 2023-06-20 02:42 | Inpatient (IN) | payer MEDICARE ==
--- NOTE | 2023-06-20 02:59 | ED ---
Male Urogenital HPI - General Chief complaint: Urogenital Stated complaint: blood in urine post op Time Seen by Provider: 06/20/23 02:46 Source: patient, RN notes reviewed, old records reviewed Mode of arrival: wheelchair Limitations: no limitations - History of Present Illness Initial comments: This is a 78-year-old male is a postoperative patient coming in for significant blood in his urine. Patient has a urostomy after kidney stone procedure and he actually did taking Eliquis after this procedure. Patient has significant of bleeding and bruising and pain. He feels weak and short of breath although he states he is always short of breath MD Complaint: other (Flank pain and hematuria) -: hour(s) Location: right flank Severity: severe Severity scale (1-10): 9 Improves with: none Worsens with: urination recent surgery Reports: blood in urine, dysuria - Related Data Home Medications Medication Instructions Recorded Confirmed traZODone HCL 150 mg PO HS PRN 02/18/19 06/20/23 Albuterol Nebulized [Ventolin 2.5 mg INHALATION RT-BID 06/20/23 06/20/23 Nebulized] Atorvastatin [Lipitor] 20 mg PO HS 06/20/23 06/20/23 Multivitamins, Thera [Multivitamin 1 tab PO DAILY 06/20/23 06/20/23 (formulary)] Spironolactone 25 mg PO DAILY 06/20/23 06/20/23 lisinopriL 2.5 mg PO DAILY 06/20/23 06/20/23 Previous Rx's Medication Instructions Recorded Budesonide-Formot 160-4.5 Mcg 2 puff INHALATION RT-BID #1 inh 11/18/20 [Symbicort 160-4.5 Mcg Inhaler] Folic Acid 1 mg PO DAILY #14 tab 11/18/20 Metoprolol Tartrate [Lopressor] 25 mg PO BID #60 tab 11/18/20 HYDROcodone/APAP 5-325MG [[place] 1 tab PO Q6HR PRN #6 tab 06/17/23 5-325] Tamsulosin [Flomax] 0.4 mg PO DAILY 30 Days #30 cap 06/17/23 Ferrous Sulfate [Feosol] 325 mg PO DAILY #30 tab 06/25/23 Allergies Allergy/AdvReac Type Severity Reaction Status Date / Time No Known Allergies Allergy Verified 06/20/23 09:01 Review of Systems ROS Statement: Those systems with pertinent positive or pertinent negative responses have been documented in the HPI. ROS Other: All systems not noted in ROS Statement are negative. Past Medical History Past Medical History: Atrial Fibrillation, COPD, GI Bleed, Hypertension, Osteoarthritis (OA), Sleep Apnea/CPAP/BIPAP Additional Past Medical History / Comment(s): Nephrolithiasis (3 stones), arthritis bilateral hands/thumbs, PRUDENCIO without device, R knee "unhappy triad", L foot drop d/t sciatica, lower GI bleed thought d/t constipation, recent admission for flare up of COPD & dx. w/a-fib per pt. History of Any Multi-Drug Resistant Organisms: None Reported Past Surgical History: Hernia Repair, Orthopedic Surgery, Tonsillectomy Additional Past Surgical History / Comment(s): RT KNEE SCOPE, BILATERAL CATARACTS with lens implants. COLONOSCOPY with benign polypectomy, 06/05/15 umb hernia and R ing. hernia repair. stent kidney stone June 15 Past Anesthesia/Blood Transfusion Reactions: No Reported Reaction Past Psychological History: No Psychological Hx Reported Smoking Status: Current every day smoker Past Alcohol Use History: None Reported Past Drug Use History: None Reported - Past Family History Sister(s) Family Medical History: Cancer Father Family Medical History: Cancer Additional Family Medical History / Comment(s): Father had lung and colon cancer. He had cirrhosis. He just before his 80th birthday. He was a nonsmoker and a nondrinker. Mother Family Medical History: Diabetes Mellitus Additional Family Medical History / Comment(s): Mother was overweight. She at age 87 yrs. General Exam General appearance: alert, in no apparent distress, anxious Head exam: Present: atraumatic, normocephalic, normal inspection Eye exam: Present: normal appearance, PERRL, EOMI. Absent: scleral icterus, conjunctival injection, periorbital swelling ENT exam: Present: normal exam, mucous membranes moist Neck exam: Present: normal inspection. Absent: tenderness, meningismus, lymphadenopathy Respiratory exam: Present: normal lung sounds bilaterally. Absent: respiratory distress, wheezes, rales, rhonchi, stridor Cardiovascular Exam: Present: regular rate, normal rhythm, normal heart sounds. Absent: systolic murmur, diastolic murmur, rubs, gallop, clicks GI/Abdominal exam: Present: soft, normal bowel sounds. Absent: distended, tenderness, guarding, rebound, rigid Extremities exam: Present: normal inspection, full ROM, normal capillary refill. Absent: tenderness, pedal edema, joint swelling, calf tenderness Back exam: Present: normal inspection Neurological exam: Present: alert, oriented X3, CN II-XII intact Psychiatric exam: Present: normal affect, normal mood Skin exam: Present: warm, dry, intact, normal color. Absent: rash Course Vital Signs 06/20/23 06/20/23 06/20/23 02:44 03:51 04:00 Temperature 98.2 F Pulse Rate 88 88 91 Pulse Rate [ Pulse Oximetery ] Respiratory 18 18 18 Rate Blood Pressure 150/79 108/73 110/72 Blood Pressure [Left Arm] O2 Sat by Pulse 95 97 97 Oximetry 06/20/23 06/20/23 06/20/23 05:00 06:00 08:13 Temperature Pulse Rate 93 84 76 Pulse Rate [ Pulse Oximetery ] Respiratory 18 18 Rate Blood Pressure 108/73 Blood Pressure [Left Arm] O2 Sat by Pulse 96 Oximetry 06/20/23 06/20/23 06/20/23 08:24 08:39 10:14 Temperature Pulse Rate 80 Pulse Rate [ 77 77 Pulse Oximetery ] Respiratory 18 18 Rate Blood Pressure Blood Pressure 107/63 [Left Arm] O2 Sat by Pulse 95 Oximetry 06/20/23 06/20/23 06/20/23 11:50 14:17 16:57 Temperature Pulse Rate Pulse Rate [ 100 100 105 H Pulse Oximetery ] Respiratory 18 18 18 Rate Blood Pressure Blood Pressure 99/55 120/70 [Left Arm] O2 Sat by Pulse 96 94 L Oximetry - Reevaluation(s) Reevaluation #1: 06/20/23 04:32 Medical records reviewed Reevaluation #2: Patient symptoms are improved Reevaluation #3: Patient informed of results questions answered Reevaluation #4: Was pt. sent in by a medical professional or institution (, PA, CONTINUUM OF CARE MANAGER, urgent care, hospital, or correction...) When possible be specific @ -no Did you speak to anyone other than the patient for history (EMS, parent, family, police, friend...)? What history was obtained from this source @ -no Did you review nursing and triage notes (agree or disagree)? Why? @ -agree Are old charts reviewed (outside hosp., previous admission, EMS record, old EKG, old radiological studies, urgent care reports/EKG's, correction records)? Report findings @ -yes Differential Diagnosis (chest pain, altered mental status, abdominal pain women, abdominal pain men, vaginal bleeding, weakness, fever, dyspnea, syncope, headache, dizziness, GI bleed, back pain, seizure, CVA, palpatations, mental health, musculoskeletal)? @ -prior EKG interpreted by me (3pts min.). @ -yes X-rays interpreted by me (1pt min.). @ -no CT interpreted by me (1pt min.). @ -Yes postoperative hemorrhage right kidney U/S interpreted by me (1pt. min.). @ -no What testing was considered but not performed or refused? (CT, X-rays, U/S, labs)? Why? @ -none What meds were considered but not given or refused? Why? @ -none Did you discuss the management of the patient with other professionals (professionals i.e. , PA, CONTINUUM OF CARE MANAGER, lab, RT, psych nurse, transition social worker, furniture removalist, teacher, labor relations officer, rn case management)? Give summary @ -no Was smoking cessation discussed for >3mins.? @ -no Was critical care preformed (if so, how long)? @ -no Were there social determinants of health that impacted care today? How? (Homelessness, low income, unemployed, alcoholism, drug addiction, transportation, low edu. Level, literacy, decrease access to med. care, fpc, rehab)? @ -none Was there de-escalation of care discussed even if they declined (Discuss DNR or withdrawal of care, Hospice)? DNR status @ -no What co-morbidities impacted this encounter? (DM, HTN, Smoking, COPD, CAD, Cancer, CVA, ARF, Chemo, Hep., AIDS, mental health diagnosis, sleep apnea, morbid obesity)? @ -none Was patient admitted / discharged? Hospital course, mention meds given and route, prescriptions, significant lab abnormalities, going to OR and other pertinent info. @ - 78 male to be admitted for postoperative hemorrhage, patient did restart blood thinning medication right after surgery on mistake and is now having significant bloody urine with hematoma of right kidney Admitted Undiagnosed new problem with uncertain prognosis? @ -no Drug Therapy requiring intensive monitoring for toxicity (Heparin, Nitro, I nsulin, Cardizem)? @ -no Were any procedures done? @ -no Diagnosis/symptom? @ -Postoperative hemorrhage and coagulopathy Acute, or Chronic, or Acute on Chronic? @ -Acute Uncomplicated (without systemic symptoms) or Complicated (systemic symptoms)? @ -Complicated Side effects of treatment? @ -no Exacerbation, Progression, or Severe Exacerbation? @ -exacerbation Poses a threat to life or bodily function? How? (Chest pain, [place], NM, pneumonia, PE, COPD, DKA, ARF, appy, cholecystitis, CVA, Diverticulitis, Homicidal, Suicidal, threat to staff... and all critical care pts) @ -yes with extremes of age postoperative hemorrhage and coagulopathy - Consultations Consultation #1: Spoke with urology on-call who is aware of this patient Consultation #2: Spoke with sound who agrees to admit this patient Medical Decision Making - Medical Decision Making 78 male to be admitted for postoperative hemorrhage, patient did restart blood thinning medication right after surgery on mistake and is now having significant bloody urine with hematoma of right kidney - Lab Data Result diagrams: 06/25/23 10:16 06/25/23 10:20 Lab Results 06/20/23 06/20/23 06/20/23 Range/Units 04:04 04:15 04:15 WBC 6.7 (3.8-10.6) k/uL RBC 2.51 L (4.30-5.90) m/uL Hgb 8.9 L (13.0-17.5) gm/dL Hct 26.2 L (39.0-53.0) % MCV 104.5 H (80.0-100.0) fL MCH 35.7 H (25.0-35.0) pg MCHC 34.1 (31.0-37.0) g/dL RDW 13.7 (11.5-15.5) % Plt Count 161 (150-450) k/uL MPV 8.6 Neutrophils % 78 % Lymphocytes % 12 % Monocytes % 6 % Eosinophils % 3 % Basophils % 0 % Neutrophils # 5.2 (1.3-7.7) k/uL Lymphocytes # 0.8 L (1.0-4.8) k/uL Monocytes # 0.4 (0-1.0) k/uL Eosinophils # 0.2 (0-0.7) k/uL Basophils # 0.0 (0-0.2) k/uL Macrocytosis Slight PT 10.8 (10.0-12.5) sec INR 1.0 (<1.2) APTT 24.2 (22.0-30.0) sec Sodium (137-145) mmol/L Potassium (3.5-5.1) mmol/L Chloride (98-107) mmol/L Carbon Dioxide (22-30) mmol/L Anion Gap mmol/L BUN (9-20) mg/dL Creatinine (0.66-1.25) mg/dL Est GFR (CKD-EPI)AfAm (>60 ml/min/1.73 sqM) Est GFR (CKD-EPI)NonAf (>60 ml/min/1.73 sqM) Glucose (74-99) mg/dL Plasma Lactic Acid Arun (0.7-2.0) mmol/L Calcium (8.4-10.2) mg/dL Phosphorus (2.5-4.5) mg/dL Magnesium (1.6-2.3) mg/dL Total Bilirubin (0.2-1.3) mg/dL AST (17-59) U/L ALT (4-49) U/L Alkaline Phosphatase (38-126) U/L Troponin I (0.000-0.034) ng/mL Total Protein (6.3-8.2) g/dL Albumin (3.5-5.0) g/dL Urine Color Dark Red Urine Appearance Turbid (Clear) Urine RBC >182 H (0-5) /hpf Urine WBC >182 H (0-5) /hpf Urine WBC Clumps Moderate H (None) /hpf Urine Bacteria Rare H (None) /hpf Blood Type Blood Type Recheck Bld Type Recheck Status Antibody Screen Crossmatch Spec Expiration Date 06/20/23 06/20/23 06/20/23 Range/Units 04:15 04:15 04:15 WBC (3.8-10.6) k/uL RBC (4.30-5.90) m/uL Hgb (13.0-17.5) gm/dL Hct (39.0-53.0) % MCV (80.0-100.0) fL MCH (25.0-35.0) pg MCHC (31.0-37.0) g/dL RDW (11.5-15.5) % Plt Count (150-450) k/uL MPV Neutrophils % % Lymphocytes % % Monocytes % % Eosinophils % % Basophils % % Neutrophils # (1.3-7.7) k/uL Lymphocytes # (1.0-4.8) k/uL Monocytes # (0-1.0) k/uL Eosinophils # (0-0.7) k/uL Basophils # (0-0.2) k/uL Macrocytosis PT (10.0-12.5) sec INR (<1.2) APTT (22.0-30.0) sec Sodium 136 L (137-145) mmol/L Potassium 4.2 (3.5-5.1) mmol/L Chloride 105 (98-107) mmol/L Carbon Dioxide 26 (22-30) mmol/L Anion Gap 5 mmol/L BUN 32 H (9-20) mg/dL Creatinine 1.78 H (0.66-1.25) mg/dL Est GFR (CKD-EPI)AfAm 41 (>60 ml/min/1.73 sqM) Est GFR (CKD-EPI)NonAf 35 (>60 ml/min/1.73 sqM) Glucose 114 H (74-99) mg/dL Plasma Lactic Acid Arun 1.3 (0.7-2.0) mmol/L Calcium 8.1 L (8.4-10.2) mg/dL Phosphorus 2.8 (2.5-4.5) mg/dL Magnesium 3.0 H (1.6-2.3) mg/dL Total Bilirubin 0.8 (0.2-1.3) mg/dL AST 23 (17-59) U/L ALT 15 (4-49) U/L Alkaline Phosphatase 70 (38-126) U/L Troponin I <0.012 (0.000-0.034) ng/mL Total Protein 6.0 L (6.3-8.2) g/dL Albumin 3.3 L (3.5-5.0) g/dL Urine Color Urine Appearance (Clear) Urine RBC (0-5) /hpf Urine WBC (0-5) /hpf Urine WBC Clumps (None) /hpf Urine Bacteria (None) /hpf Blood Type Blood Type Recheck Bld Type Recheck Status Antibody Screen Crossmatch Spec Expiration Date 06/20/23 Range/Units 04:15 WBC (3.8-10.6) k/uL RBC (4.30-5.90) m/uL Hgb (13.0-17.5) gm/dL Hct (39.0-53.0) % MCV (80.0-100.0) fL MCH (25.0-35.0) pg MCHC (31.0-37.0) g/dL RDW (11.5-15.5) % Plt Count (150-450) k/uL MPV Neutrophils % % Lymphocytes % % Monocytes % % Eosinophils % % Basophils % % Neutrophils # (1.3-7.7) k/uL Lymphocytes # (1.0-4.8) k/uL Monocytes # (0-1.0) k/uL Eosinophils # (0-0.7) k/uL Basophils # (0-0.2) k/uL Macrocytosis PT (10.0-12.5) sec INR (<1.2) APTT (22.0-30.0) sec Sodium (137-145) mmol/L Potassium (3.5-5.1) mmol/L Chloride (98-107) mmol/L Carbon Dioxide (22-30) mmol/L Anion Gap mmol/L BUN (9-20) mg/dL Creatinine (0.66-1.25) mg/dL Est GFR (CKD-EPI)AfAm (>60 ml/min/1.73 sqM) Est GFR (CKD-EPI)NonAf (>60 ml/min/1.73 sqM) Glucose (74-99) mg/dL Plasma Lactic Acid Arun (0.7-2.0) mmol/L Calcium (8.4-10.2) mg/dL Phosphorus (2.5-4.5) mg/dL Magnesium (1.6-2.3) mg/dL Total Bilirubin (0.2-1.3) mg/dL AST (17-59) U/L ALT (4-49) U/L Alkaline Phosphatase (38-126) U/L Troponin I (0.000-0.034) ng/mL Total Protein (6.3-8.2) g/dL Albumin (3.5-5.0) g/dL Urine Color Urine Appearance (Clear) Urine RBC (0-5) /hpf Urine WBC (0-5) /hpf Urine WBC Clumps (None) /hpf Urine Bacteria (None) /hpf Blood Type A Negative Blood Type Recheck A Neg Bld Type Recheck Status No Antibody Screen NEGATIVE Crossmatch See Detail Spec Expiration Date 06/23/20232314 - EKG Data -: EKG Interpreted by Me (KG is sinus 84 RI 209 QRS 118 QTc 422) - Radiology Data Radiology results: report reviewed (CT abdomen pelvis showed postoperative hemorrhage right kidney), image reviewed Disposition Clinical Impression: COPD exacerbation, Dizziness, Status post robot-assisted surgical procedure, Hematuria, Coagulopathy, Atrial fibrillation with rapid ventricular response, Postoperative haemorrhage Disposition: ADMITTED IP TO THIS [facility] Condition: Serious Is patient prescribed a controlled substance at d/c from ED?: No Time of Disposition: 06:45
[2023-06-20] MEDS: SODIUM CHLORIDE 0.9% 1,000 ML IV STA (04:30)
[2023-06-20 04:41] LABS: Bacteria,Urine Rare /hpf
[2023-06-20 04:47] LABS: ALT 15 U/L (4-49); AST 23 U/L (17-59); African American GFR (CKD) 41 (>60 ml/min/1.73 sqM); Albumin 3.3 g/dL (3.5-5.0); Alkaline Phosphatase 70 U/L (38-126); Anion Gap 5 mmol/L; Blood Urea Nitrogen 32 mg/dL (9-20); Calcium 8.1 mg/dL (8.4-10.2); Carbon Dioxide 26 mmol/L (22-30); Chloride 105 mmol/L (98-107); Glucose 114 mg/dL (74-99); Non-African American GFR(CKD) 35 (>60 ml/min/1.73 sqM); Phosphorus 2.8 mg/dL (2.5-4.5); Potassium 4.2 mmol/L (3.5-5.1); Sodium 136 mmol/L (137-145); Total Bilirubin 0.8 mg/dL (0.2-1.3)
[2023-06-20 04:48] LABS: Appearance,Urine Turbid (Clear); Color,Urine Dark Red; RBC,Urine >182 /hpf (0-5); WBC,Urine >182 /hpf (0-5)
[2023-06-20 04:48] LABS: Basophils % (A) 0 %; Eosinophils # (A) 0.2 k/uL (0-0.7); Eosinophils % (A) 3 %; HCT 26.2 % (39.0-53.0); HGB 8.9 gm/dL (13.0-17.5); Lymphocytes # (A) 0.8 k/uL (1.0-4.8); Lymphocytes % (A) 12 %; MCH 35.7 pg (25.0-35.0); MCHC 34.1 g/dL (31.0-37.0); MCV 104.5 fL (80.0-100.0); Macrocytosis Slight; Mean Platelet Volume 8.6; Monocytes # (A) 0.4 k/uL (0-1.0); Monocytes % (A) 6 %; Neutrophils # (A) 5.2 k/uL (1.3-7.7); Neutrophils % (A) 78 %; Platelet Count 161 k/uL (150-450); RBC 2.51 m/uL (4.30-5.90); RDW 13.7 % (11.5-15.5); WBC 6.7 k/uL (3.8-10.6)
[2023-06-20 04:49] LABS: Partial Thromboplastin Time 24.2 sec (22.0-30.0); Prothrombin Time 10.8 sec (10.0-12.5)
[2023-06-20] MEDS ORDERED: ONDANSETRON 4 MG/2 ML VIAL IVP PRN (06:48)
[2023-06-20] MEDS ORDERED: MORPHINE SULFATE 4 MG/ML SYRINGE IV PRN (06:48)
[2023-06-20] MEDS ORDERED: NALOXONE 0.4 MG/ML 1 ML VIAL IV PRN (06:48)
[2023-06-20] MEDS ORDERED: Kcentra PER PHARMACY 1 EACH MISC MISCELLANE PRN (06:49)
--- NOTE | 2023-06-20 07:12 | CT ---
EXAMINATION TYPE: CT abdomen pelvis wo con DATE OF EXAM: 06/20/2023 COMPARISON: 05/06/2023 HISTORY: 78-year-old male Pt had a procedure -stent and kidney stone removal done by Dr Barksdale Friday morning. Pt reports that it has been bleeding some and it has increased . Since Friday pt has been urinating blood and this am the bleeding increased and pt is feeling dizzy. Skin w/p/d. No sob or c p. Pt does take Xarelto but stopped it last Friday. Pt took one Friday because he forgot and then never took another one. CT DLP: 785.4 mGycm. Automated exposure control for dose reduction was used. TECHNIQUE: Contiguous axial scanning of the abdomen and pelvis without IV contrast. Coronal and sagit arpit reconstructions performed. FINDINGS: The heart is normal size without pericardial effusion. LAD and RCA coronary calcifications are presen t. Suspect chronic pleural parenchymal scarring at the right base. A trace right effusion are more prono unced deep tendon atelectasis has developed at the right base. Noncontrast appearance of the liver, adrenal glands, spleen, and pancreas within normal limits. Numerous small layering gallstones. Abnormal gallbladder distention. Multiple bilateral renal cortical cysts measuring up to 3.8 cm. There is progressive, now severe right-sided hydronephrosis. High density fluid throughout the dilate d right renal collecting system and right ureter. A right-sided ureteral stent is somewhat low in pos ition with the proximal loop at the dilated UPJ. There is a 4.4 cm the length of punctate Steinstrass e calculi with stones measuring up to 5 mm. A right-sided nephrostomy tube is also present. The lobe is partially uncurled and located at the per iphery of an upper pole minor calyx. Some mild perinephric strandy hemorrhage is noted Scattered mild to moderate prostatic calcifications throughout the abdominal aorta and iliac arteries . Ectatic abdominal aorta measuring up to 2.6 cm. No dilated small bowel, free fluid, or free air. No mesenteric or retroperitoneal lymphadenopathy. Normal appendix. Left-sided colonic diverticulosis greatest in the proximal sigmoid colon. Redundant sigmoid colon. No pericolonic inflammatory change. Bladder partially distended. Excessive distal end of the right ureteral stent located within the blad violet due to the low stent positioning. Prostate gland is 4.5 cm wide. A few punctate 2 mm dependent ca lcifications within the lateral lumen. Abnormal fluid collection in the pelvis or pelvic lymphadenopa thy. Bones: Moderate degenerative change of the hips. Degenerative changes bilateral SI joints. Osteopenia . Advanced degenerative changes throughout the lumbar spine especially from L2 through S1 levels. IMPRESSION: 1. Right nephrostomy tube. The loop is uncurled within the periphery of an upper pole minor calyx. M ild to moderate strandy perinephric hemorrhage. 2. Progressive, now severe right-sided hydronephrosis. The fluid shows high density suggesting hemor rhagic urine. The right ureteral stent is low in position; the proximal loop is located within the di lated UPJ. There is a 4.4 cm length of punctate Steinstrasse calculi in the proximal ureter with ston es measuring up to 5 mm. Given the progressive hydronephrosis and hemorrhagic urine on this side, con motor inspection mechanic nephrostomy tube/stent malfunction. 3. A few punctate 2 mm stones located dependently within the bladder lumen.
[2023-06-20] MEDS: ALBUTEROL NEBULIZED 2.5 MG/3 ML INHALATION PRN (08:13)
[2023-06-20] MEDS: SODIUM CHLORIDE 0.9% 1,000 ML IV SCH (09:02)
[2023-06-20] MEDS: HUMAN PROTHROMBIN COMPLX IV ONE (09:03)
[2023-06-20] MEDS ORDERED: HUMAN PROTHROMBIN COMPLX 500 UNIT/16 ML VIAL IV ONE (09:03)
[2023-06-20 11:04] LABS: INR 0.9 (<1.2); Partial Thromboplastin Time 23.3 sec (22.0-30.0); Prothrombin Time 10.1 sec (10.0-12.5)
[2023-06-20] MEDS ORDERED: MORPHINE SULFATE 2 MG/ML SYRINGE IV PRN (14:21)
[2023-06-20 15:19] LABS: HCT 25.4 % (39.0-53.0); HGB 8.3 gm/dL (13.0-17.5); MCH 35.1 pg (25.0-35.0); MCHC 32.8 g/dL (31.0-37.0); Macrocytosis Moderate; Mean Platelet Volume 9.5; Platelet Count 176 k/uL (150-450); RBC 2.37 m/uL (4.30-5.90); RDW 13.8 % (11.5-15.5); WBC 7.7 k/uL (3.8-10.6)
--- NOTE | 2023-06-20 16:23 | P.HPIM ---
History of Present Illness H&P Date: 06/20/23 78-year-old male with PMH of atrial fibrillation, COPD, hypertension, sleep apnea, history of nephrolithiasis with recent right percutaneous nephrostomy tube on 06/15 presents to the ED for hematuria. He reports re-starting his Xarelto as instructed on the day of discharge. He reports lightheadedness with changes in position. He denies any chest pain, SOB or palpitations. In the ED he underwent extensive evaluation. BP 150/79, HR 88, RR 18, T 98.2F, 95% on RA. CBC, Coag panel, CMP performed significant for Hg 8.9, Hct 26.2, MCV 104.5, Na 136, BUN 32, Cr 1.78, glu 114, Ca 8.1, total protein 6, alb 3.3. Troponin < 0.012. Mag 3. Lactic acid 1.3. UA > 182 RBCs. EKG sinus rhythm with PVCs. CT AP right nephrostomy tube loop uncurled within the peripery of an upper pole minor calyx, mild-mod strandy perinephril hemorrhage, severe right hydronephrosis. Patient is given Kcentra and admitted for Urology evaluation. General: non toxic, no distress, appears at stated age Derm: warm, dry Head: atraumatic, normocephalic, symmetric Eyes: EOMI, no lid lag, anicteric sclera Mouth: no lip lesion, mucus membranes moist Cardiovascular: S1S2 irreg, no murmur Lungs: CTA bilateral, no rhonchi, no rales , no accessory muscle use Abdominal: soft, nontender to palpation, no guarding, no appreciable organ omegaly, R nephrostomy tube dressing blood soaked dressing Ext: no gross muscle atrophy, no edema, no contractures Neuro: no focal neuro deficits Psych: Alert, oriented, appropriate affect Hematuria: Status post Kcentra. Telemetry monitoring. Hold Xarelto. Repeat CBC ordered for tomorrow morning. Urology consulted. History of nephrolithiasis with recent right percutaneous nephrostomy tube BENITEZ on CKD: Continue NS at 75 cc/hr. Hold Lisinopril and Aldactone. Atrial fibrillation: Metoprolol 25 mg PO BID. Hold AC due to hematuria. COPD: Symbicort 2 INH BID. Albuterol neb PRN SOB/wheezing. Hypertension: Borderline hypotensive. Resume Metoprolol as above. Aldactone and Lisinopril on hold. Sleep apnea: CPAP PRN. CODE STATUS: NO CODE DVT Prophylaxis: GI Prophylaxis: Designated medical POA if patient is not able to make medical decisions for themselves: Daughter I have reviewed the following funeral pre need consultant notes: ED note. I have reviewed the results of the following tests: As above I have ordered the following tests: As above I have discussed the care of this patient with the following independent historian: I have independently interpreted the following test below: EKG I have discussed the management of this patient with the following physician: Dr. Dunham Past Medical History Past Medical History: Atrial Fibrillation, COPD, GI Bleed, Hypertension, Osteoarthritis (OA), Sleep Apnea/CPAP/BIPAP Additional Past Medical History / Comment(s): Nephrolithiasis (3 stones), arthritis bilateral hands/thumbs, PRUDENCIO without device, R knee "unhappy triad", L foot drop d/t sciatica, lower GI bleed thought d/t constipation, recent admission for flare up of COPD & dx. w/a-fib per pt. History of Any Multi-Drug Resistant Organisms: None Reported Past Surgical History: Hernia Repair, Orthopedic Surgery, Tonsillectomy Additional Past Surgical History / Comment(s): RT KNEE SCOPE, BILATERAL CATARACTS with lens implants. COLONOSCOPY with benign polypectomy, 06/05/15 umb hernia and R ing. hernia repair. stent kidney stone June 15 Past Anesthesia/Blood Transfusion Reactions: No Reported Reaction Past Psychological History: No Psychological Hx Reported Smoking Status: Current every day smoker Past Alcohol Use History: None Reported Past Drug Use History: None Reported - Past Family History Sister(s) Family Medical History: Cancer Father Family Medical History: Cancer Additional Family Medical History / Comment(s): Father had lung and colon cancer. He had cirrhosis. He just before his 80th birthday. He was a nonsmoker and a nondrinker. Mother Family Medical History: Diabetes Mellitus Additional Family Medical History / Comment(s): Mother was overweight. She at age 87 yrs. Medications and Allergies Home Medications Medication Instructions Recorded Confirmed Type traZODone HCL 150 mg PO HS PRN 02/18/19 06/20/23 History Budesonide-Formot 160-4.5 Mcg 2 puff INHALATION RT-BID #1 inh 11/18/20 06/20/23 Rx [Symbicort 160-4.5 Mcg Inhaler] Folic Acid 1 mg PO DAILY #14 tab 11/18/20 06/20/23 Rx Metoprolol Tartrate [Lopressor] 25 mg PO BID #60 tab 11/18/20 06/20/23 Rx Rivaroxaban [Xarelto] 20 mg PO W/SUPPER #30 tab 11/18/20 06/20/23 Rx Vit B12 Complex(Unk) 1 tab PO DAILY 06/11/23 06/20/23 History HYDROcodone/APAP 5-325MG [[place] 1 tab PO Q6HR PRN #6 tab 06/17/23 06/20/23 Rx 5-325] Tamsulosin [Flomax] 0.4 mg PO DAILY 30 Days #30 cap 06/17/23 06/20/23 Rx Albuterol Nebulized [Ventolin 2.5 mg INHALATION RT-BID 06/20/23 06/20/23 History Nebulized] Atorvastatin [Lipitor] 20 mg PO HS 06/20/23 06/20/23 History Multivitamins, Thera [Multivitamin 1 tab PO DAILY 06/20/23 06/20/23 History (formulary)] Spironolactone 25 mg PO DAILY 06/20/23 06/20/23 History lisinopriL 2.5 mg PO DAILY 06/20/23 06/20/23 History Allergies Allergy/AdvReac Type Severity Reaction Status Date / Time No Known Allergies Allergy Verified 06/20/23 09:01 Physical Exam Vitals: Vital Signs Temp Pulse Pulse Resp BP BP Pulse Ox 06/20/23 14:17 100 18 06/20/23 11:50 100 18 99/55 96 06/20/23 10:14 77 18 06/20/23 08:39 77 18 107/63 95 06/20/23 08:24 80 06/20/23 08:13 76 06/20/23 06:00 84 18 108/73 96 06/20/23 05:00 93 18 06/20/23 04:00 91 18 110/72 97 06/20/23 03:51 88 18 108/73 97 06/20/23 02:44 98.2 F 88 18 150/79 95 Intake and Output 06/20/23 06/20/23 06/20/23 06:59 14:59 22:59 Output Total 230 Balance -230 Output: Urine 230 Other: Voiding Method Indwelling Catheter Indwelling Catheter Weight 102.058 kg Results CBC & Chem 7: 06/20/23 15:02 06/20/23 04:15 Labs: Abnormal Lab Results - Last 24 Hours (Table) 06/20/23 06/20/23 06/20/23 Range/Units 04:04 04:15 04:15 RBC 2.51 L (4.30-5.90) m/uL Hgb 8.9 L (13.0-17.5) gm/dL Hct 26.2 L (39.0-53.0) % MCV 104.5 H (80.0-100.0) fL MCH 35.7 H (25.0-35.0) pg Lymphocytes # 0.8 L (1.0-4.8) k/uL Sodium 136 L (137-145) mmol/L BUN 32 H (9-20) mg/dL Creatinine 1.78 H (0.66-1.25) mg/dL Glucose 114 H (74-99) mg/dL Calcium 8.1 L (8.4-10.2) mg/dL Magnesium 3.0 H (1.6-2.3) mg/dL Total Protein 6.0 L (6.3-8.2) g/dL Albumin 3.3 L (3.5-5.0) g/dL Urine RBC >182 H (0-5) /hpf Urine WBC >182 H (0-5) /hpf Urine WBC Clumps Moderate H (None) /hpf Urine Bacteria Rare H (None) /hpf 06/20/23 Range/Units 15:02 RBC 2.37 L (4.30-5.90) m/uL Hgb 8.3 L (13.0-17.5) gm/dL Hct 25.4 L (39.0-53.0) % MCV 107.0 H (80.0-100.0) fL MCH 35.1 H (25.0-35.0) pg Lymphocytes # (1.0-4.8) k/uL Sodium (137-145) mmol/L BUN (9-20) mg/dL Creatinine (0.66-1.25) mg/dL Glucose (74-99) mg/dL Calcium (8.4-10.2) mg/dL Magnesium (1.6-2.3) mg/dL Total Protein (6.3-8.2) g/dL Albumin (3.5-5.0) g/dL Urine RBC (0-5) /hpf Urine WBC (0-5) /hpf Urine WBC Clumps (None) /hpf Urine Bacteria (None) /hpf
[2023-06-20] MEDS: ATORVASTATIN 20 MG TAB PO SCH (19:59)
[2023-06-20] MEDS: SYMBICORT 160-4.5 MCG INHALER INHALATION SCH (19:59)
[2023-06-20] MEDS: METOPROLOL TARTRATE 25 MG TAB PO SCH (19:59)
[2023-06-21 08:05] LABS: HCT 23.5 % (39.0-53.0); HGB 7.9 gm/dL (13.0-17.5); MCH 35.5 pg (25.0-35.0); MCHC 33.5 g/dL (31.0-37.0); Macrocytosis Moderate; Mean Platelet Volume 8.5; Platelet Count 179 k/uL (150-450); RBC 2.21 m/uL (4.30-5.90); RDW 13.7 % (11.5-15.5); WBC 6.1 k/uL (3.8-10.6)
[2023-06-21] MEDS: TAMSULOSIN 0.4 MG CAP.ER.24H PO SCH (08:11)
[2023-06-21] MEDS: FOLIC ACID 1 MG TAB PO SCH (08:11)
[2023-06-21 08:25] LABS: African American GFR (CKD) 46 (>60 ml/min/1.73 sqM); Anion Gap 4 mmol/L; Blood Urea Nitrogen 28 mg/dL (9-20); Calcium 7.7 mg/dL (8.4-10.2); Carbon Dioxide 24 mmol/L (22-30); Chloride 108 mmol/L (98-107); Glucose 95 mg/dL (74-99); Non-African American GFR(CKD) 39 (>60 ml/min/1.73 sqM); Potassium 4.5 mmol/L (3.5-5.1); Sodium 136 mmol/L (137-145)
--- NOTE | 2023-06-21 09:14 | P.GSCN ---
History of Present Illness Consult date: 06/20/23 Reason for Consult: Right perinephric hematoma Requesting physician: Luis Manrique History of present illness: The patient is an 78-year-old white male who underwent a right percutaneous nephrolithotomy on June 16, 2023. The following day, the Omer catheter and nephrostomy tube were draining urine which was light pink in color, without clots. Patient was discharged home on June 16 with the nephrostomy tube. He was to hold his anticoagulants but he inadvertently took Eliquis. He presented to the ER with pain, hematuria, bruising, and weakness. He actually reports minimal discomfort. CT scan imaging showed evidence of bleeding within the right renal pelvis and the perinephric region. The stent is properly posit ioned. Review of Systems - Constitutional Denies chills, Denies fever - Genitourinary Reports hematuria Past Medical History Past Medical History: Atrial Fibrillation, COPD, GI Bleed, Hypertension, Osteoarthritis (OA), Sleep Apnea/CPAP/BIPAP Additional Past Medical History / Comment(s): Nephrolithiasis (3 stones), arthritis bilateral hands/thumbs, PRUDENCIO without device, R knee "unhappy triad", L foot drop d/t sciatica, lower GI bleed thought d/t constipation, recent admission for flare up of COPD & dx. w/a-fib per pt. History of Any Multi-Drug Resistant Organisms: None Reported Past Surgical History: Hernia Repair, Orthopedic Surgery, Tonsillectomy Additional Past Surgical History / Comment(s): RT KNEE SCOPE, BILATERAL CATARACTS with lens implants. COLONOSCOPY with benign polypectomy, 06/05/15 umb hernia and R ing. hernia repair. stent kidney stone June 15 Past Anesthesia/Blood Transfusion Reactions: No Reported Reaction Past Psychological History: No Psychological Hx Reported Smoking Status: Current every day smoker Past Alcohol Use History: None Reported Past Drug Use History: None Reported - Past Family History Sister(s) Family Medical History: Cancer Father Family Medical History: Cancer Additional Family Medical History / Comment(s): Father had lung and colon cancer. He had cirrhosis. He just before his 80th birthday. He was a nonsmoker and a nondrinker. Mother Family Medical History: Diabetes Mellitus Additional Family Medical History / Comment(s): Mother was overweight. She at age 87 yrs. Medications and Allergies Home Medications Medication Instructions Recorded Confirmed Type traZODone HCL 150 mg PO HS PRN 02/18/19 06/20/23 History Budesonide-Formot 160-4.5 Mcg 2 puff INHALATION RT-BID #1 inh 11/18/20 06/20/23 Rx [Symbicort 160-4.5 Mcg Inhaler] Folic Acid 1 mg PO DAILY #14 tab 11/18/20 06/20/23 Rx Metoprolol Tartrate [Lopressor] 25 mg PO BID #60 tab 11/18/20 06/20/23 Rx Rivaroxaban [Xarelto] 20 mg PO W/SUPPER #30 tab 11/18/20 06/20/23 Rx Vit B12 Complex(Unk) 1 tab PO DAILY 06/11/23 06/20/23 History HYDROcodone/APAP 5-325MG [[place] 1 tab PO Q6HR PRN #6 tab 06/17/23 06/20/23 Rx 5-325] Tamsulosin [Flomax] 0.4 mg PO DAILY 30 Days #30 cap 06/17/23 06/20/23 Rx Albuterol Nebulized [Ventolin 2.5 mg INHALATION RT-BID 06/20/23 06/20/23 History Nebulized] Atorvastatin [Lipitor] 20 mg PO HS 06/20/23 06/20/23 History Multivitamins, Thera [Multivitamin 1 tab PO DAILY 06/20/23 06/20/23 History (formulary)] Spironolactone 25 mg PO DAILY 06/20/23 06/20/23 History lisinopriL 2.5 mg PO DAILY 06/20/23 06/20/23 History Allergies Allergy/AdvReac Type Severity Reaction Status Date / Time No Known Allergies Allergy Verified 06/20/23 09:01 Surgical - Exam Vital Signs Temp Pulse Resp BP Pulse Ox 98.2 F 88 18 150/79 95 06/20/23 02:44 06/20/23 02:44 06/20/23 02:44 06/20/23 02:44 06/20/23 02:44 - General well developed, well nourished, no distress - Respiratory normal respiratory effort - Abdomen Soft, non-distended, non-tender. Ecchymosis is noted on the right flank and abdominal region. - Psychiatric oriented to time, oriented to person, oriented to place, speech is normal, memory intact Results - Labs 06/21/23 07:39 06/21/23 07:39 Abnormal Lab Results - Last 24 Hours (Table) 06/20/23 06/20/23 06/20/23 Range/Units 04:04 04:15 04:15 RBC 2.51 L (4.30-5.90) m/uL Hgb 8.9 L (13.0-17.5) gm/dL Hct 26.2 L (39.0-53.0) % MCV 104.5 H (80.0-100.0) fL MCH 35.7 H (25.0-35.0) pg Lymphocytes # 0.8 L (1.0-4.8) k/uL Sodium 136 L (137-145) mmol/L BUN 32 H (9-20) mg/dL Creatinine 1.78 H (0.66-1.25) mg/dL Glucose 114 H (74-99) mg/dL Calcium 8.1 L (8.4-10.2) mg/dL Magnesium 3.0 H (1.6-2.3) mg/dL Total Protein 6.0 L (6.3-8.2) g/dL Albumin 3.3 L (3.5-5.0) g/dL Urine RBC >182 H (0-5) /hpf Urine WBC >182 H (0-5) /hpf Urine WBC Clumps Moderate H (None) /hpf Urine Bacteria Rare H (None) /hpf Diabetes panel 06/20/23 Range/Units 04:15 Sodium 136 L (137-145) mmol/L Potassium 4.2 (3.5-5.1) mmol/L Chloride 105 (98-107) mmol/L Carbon Dioxide 26 (22-30) mmol/L BUN 32 H (9-20) mg/dL Creatinine 1.78 H (0.66-1.25) mg/dL Glucose 114 H (74-99) mg/dL Calcium 8.1 L (8.4-10.2) mg/dL AST 23 (17-59) U/L ALT 15 (4-49) U/L Alkaline Phosphatase 70 (38-126) U/L Total Protein 6.0 L (6.3-8.2) g/dL Albumin 3.3 L (3.5-5.0) g/dL Calcium panel 06/20/23 Range/Units 04:15 Calcium 8.1 L (8.4-10.2) mg/dL Phosphorus 2.8 (2.5-4.5) mg/dL Albumin 3.3 L (3.5-5.0) g/dL Pituitary panel 06/20/23 Range/Units 04:15 Sodium 136 L (137-145) mmol/L Potassium 4.2 (3.5-5.1) mmol/L Chloride 105 (98-107) mmol/L Carbon Dioxide 26 (22-30) mmol/L BUN 32 H (9-20) mg/dL Creatinine 1.78 H (0.66-1.25) mg/dL Glucose 114 H (74-99) mg/dL Calcium 8.1 L (8.4-10.2) mg/dL Adrenal panel 06/20/23 Range/Units 04:15 Sodium 136 L (137-145) mmol/L Potassium 4.2 (3.5-5.1) mmol/L Chloride 105 (98-107) mmol/L Carbon Dioxide 26 (22-30) mmol/L BUN 32 H (9-20) mg/dL Creatinine 1.78 H (0.66-1.25) mg/dL Glucose 114 H (74-99) mg/dL Calcium 8.1 L (8.4-10.2) mg/dL Total Bilirubin 0.8 (0.2-1.3) mg/dL AST 23 (17-59) U/L ALT 15 (4-49) U/L Alkaline Phosphatase 70 (38-126) U/L Total Protein 6.0 L (6.3-8.2) g/dL Albumin 3.3 L (3.5-5.0) g/dL - Imaging CT scan - abdomen: report reviewed, image reviewed Assessment and Plan (1) Calculus of kidney Current Visit: Yes Status: Acute Code(s): N20.0 - CALCULUS OF KIDNEY SNOMED Code(s): 26589397 Plan: Based on the CT scan images, the nephrostomy tube and ureteral stent are properly positioned. It is my expectation that the hematoma will be self- limited and be reabsorbed. No intervention is expected to be warranted, unless the hemoglobin level continues to drop, in which case referral for an art eriogram and arterial embolization would need to be considered.
--- NOTE | 2023-06-21 10:57 | P.PN ---
Subjective Progress Note Date: 06/21/23 78-year-old male with PMH of atrial fibrillation, COPD, hypertension, sleep apnea, history of nephrolithiasis with recent right percutaneous nephrostomy tube on 06/15 presents to the ED for hematuria. He reports re-starting his Xarelto as instructed on the day of discharge. He reports lightheadedness with changes in position. He denies any chest pain, SOB or palpitations. In the ED he underwent extensive evaluation. BP 150/79, HR 88, RR 18, T 98.2F, 95% on RA. CBC, Coag panel, CMP performed significant for Hg 8.9, Hct 26.2, MCV 104.5, Na 136, BUN 32, Cr 1.78, glu 114, Ca 8.1, total protein 6, alb 3.3. Troponin < 0.012. Mag 3. Lactic acid 1.3. UA > 182 RBCs. EKG sinus rhythm with PVCs. CT AP right nephrostomy tube loop uncurled within the peripery of an upper pole minor calyx, mild-mod strandy perinephril hemorrhage, severe right hydronephrosis. Patient is given Kcentra and admitted for Urology evaluation. 06/20 Patient was seen and examined. Continued hematuria. The case was discussed with Dr. Dunham in the ED on 06/19 who recommended no surgical intervention and to monitor Hg. If Hg continues to drop, patient may need transfer for arterial embolization. CBC Hg 7.9, Hct 23.5, MCV 106. BMP Na 136, Cl 108, BUN 28, Cr 1.62, Ca 7.7. General: non toxic, no distress, appears at stated age Derm: warm, dry Head: atraumatic, normocephalic, symmetric Eyes: EOMI, no lid lag, anicteric sclera Mouth: no lip lesion, mucus membranes moist Cardiovascular: S1S2 irreg, no murmur Lungs: CTA bilateral, no rhonchi, no rales , no accessory muscle use Abdominal: soft, nontender to palpation, no guarding, no appreciable organomegaly, R nephrostomy tube dressing blood soaked dressing Ext: no gross muscle atrophy, no edema, no contractures Neuro: no focal neuro deficits Psych: Alert, oriented, appropriate affect Hematuria: Status post Kcentra in the ED. Telemetry monitoring. Hold Xarelto. Trend CBC. Urology on board. History of nephrolithiasis with recent right percutaneous nephrostomy tube BENITEZ on CKD: Continue NS at 75 cc/hr. Hold Lisinopril and Aldactone. Atrial fibrillation: Metoprolol 25 mg PO BID. Hold AC due to hematuria. COPD: Symbicort 2 INH BID. Albuterol neb PRN SOB/wheezing. Hypertension: Borderline hypotensive. Resume Metoprolol as above. Aldactone and Lisinopril on hold. Sleep apnea: CPAP PRN. CODE STATUS: NO CODE DVT Prophylaxis: SCD GI Prophylaxis: Designated medical POA if patient is not able to make medical decisions for themselves: Daughter I have reviewed the following computing consultant notes: Urology. I have reviewed the results of the following tests: CBC, BMP. I have ordered the following tests: CBC tomorrow morning I have discussed the care of this patient with the following independent historian: I have independently interpreted the following test below: I have discussed the management of this patient with the following physician: Objective - Vital Signs Vital signs: Vital Signs Temp 98.1 F 06/21/23 03:26 Pulse 78 06/21/23 03:26 Resp 20 06/21/23 03:26 BP 124/52 06/21/23 03:26 Pulse Ox 98 06/21/23 03:26 FiO2 Intake & Output 06/20/23 06/21/23 06/21/23 18:59 06:59 18:59 Intake Total 200 Output Total 240 Balance -40 Weight 101.6 kg Intake: Oral 200 Output: Urine 240 Other: Voiding Method Indwelling Catheter Urinal # Voids 2 - Labs CBC & Chem 7: 06/21/23 07:39 06/21/23 07:39 Labs: Abnormal Lab Results - Last 24 Hours (Table) 06/20/23 Range/Units 15:02 RBC 2.37 L (4.30-5.90) m/uL Hgb 8.3 L (13.0-17.5) gm/dL Hct 25.4 L (39.0-53.0) % MCV 107.0 H (80.0-100.0) fL MCH 35.1 H (25.0-35.0) pg
--- NOTE | 2023-06-21 14:03 | P.PN ---
Subjective Progress Note Date: 06/21/23 Principal diagnosis: Gross Hematuria The patient underwent a right percutaneous nephrolithotomy on June 16, 2023. He is now readmitted with bleeding. He states that the hematuria is improved such that his urine is somewhat translucent now. He was passing small clots at the time of admission but is no longer passing clots. He reports weakness, which is improved compared to how he felt at the time of admission. Objective - Vital Signs Vital signs: Vital Signs Temp 98.1 F 06/21/23 03:26 Pulse 78 06/21/23 03:26 Resp 20 06/21/23 03:26 BP 124/52 06/21/23 03:26 Pulse Ox 98 06/21/23 03:26 FiO2 Intake & Output 06/20/23 06/21/23 06/21/23 18:59 06:59 18:59 Intake Total 200 Output Total 240 Balance -40 Weight 101.6 kg Intake: Oral 200 Output: Urine 240 Other: Voiding Method Indwelling Catheter Urinal # Voids 2 - Constitutional General appearance: Present: average body habitus, cooperative, no acute distress - Gastrointestinal Gastrointestinal Comment(s): Soft, non-tender, non-distended. Ecchymosis is noted on the right upper quadrant and right flank. - Psychiatric Psychiatric: Present: A&O x's 3 - Labs CBC & Chem 7: 06/21/23 07:39 06/21/23 07:39 Labs: Abnormal Lab Results - Last 24 Hours (Table) 06/20/23 06/21/23 06/21/23 Range/Units 15:02 07:39 07:39 RBC 2.37 L 2.21 L (4.30-5.90) m/uL Hgb 8.3 L 7.9 L (13.0-17.5) gm/dL Hct 25.4 L 23.5 L (39.0-53.0) % MCV 107.0 H 106.0 H (80.0-100.0) fL MCH 35.1 H 35.5 H (25.0-35.0) pg Sodium 136 L (137-145) mmol/L Chloride 108 H (98-107) mmol/L BUN 28 H (9-20) mg/dL Creatinine 1.62 H (0.66-1.25) mg/dL Calcium 7.7 L (8.4-10.2) mg/dL Assessment and Plan (1) Calculus of kidney Current Visit: Yes Status: Acute Code(s): N20.0 - CALCULUS OF KIDNEY SNOMED Code(s): 78798725 Plan: The hematuria is improving and I am hopeful that it will continue to improve and obviate the need for arterial embolization. The hemoglobin level will continue to be monitored, and the patient was made aware of the possibility that he may require a transfusion.
[2023-06-21 19:17] LABS: HCT 21.9 % (39.0-53.0); HGB 7.3 gm/dL (13.0-17.5); MCH 35.1 pg (25.0-35.0); MCHC 33.1 g/dL (31.0-37.0); Macrocytosis Moderate; Mean Platelet Volume 8.7; Platelet Count 225 k/uL (150-450); RBC 2.07 m/uL (4.30-5.90); RDW 13.6 % (11.5-15.5); WBC 5.6 k/uL (3.8-10.6)
[2023-06-21] MEDS: traZODone HCL 100 MG TAB PO PRN (20:31)
[2023-06-22 09:32] LABS: HCT 20.4 % (39.0-53.0); MCH 35.4 pg (25.0-35.0); MCV 107.3 fL (80.0-100.0); Macrocytosis Moderate; Mean Platelet Volume 7.8; Platelet Count 235 k/uL (150-450); RDW 13.6 % (11.5-15.5)
[2023-06-22 09:43] LABS: HGB 6.7 gm/dL (13.0-17.5)
--- NOTE | 2023-06-22 11:13 | P.PN ---
Subjective Progress Note Date: 06/22/23 78-year-old male with PMH of atrial fibrillation, COPD, hypertension, sleep apnea, history of nephrolithiasis with recent right percutaneous nephrostomy tube on 06/15 presents to the ED for hematuria. He reports re-starting his Xarelto as instructed on the day of discharge. He reports lightheadedness with changes in position. He denies any chest pain, SOB or palpitations. In the ED he underwent extensive evaluation. BP 150/79, HR 88, RR 18, T 98.2F, 95% on RA. CBC, Coag panel, CMP performed significant for Hg 8.9, Hct 26.2, MCV 104.5, Na 136, BUN 32, Cr 1.78, glu 114, Ca 8.1, total protein 6, alb 3.3. Troponin < 0.012. Mag 3. Lactic acid 1.3. UA > 182 RBCs. EKG sinus rhythm with PVCs. CT AP right nephrostomy tube loop uncurled within the peripery of an upper pole minor calyx, mild-mod strandy perinephril hemorrhage, severe right hydronephrosis. Patient is given Kcentra and admitted for Urology evaluation. The case was discussed with Dr. Dunham in the ED on 06/19 who recommended no surgical intervention and to monitor Hg. If Hg continues to drop, patient may need transfer for arterial embolization. Hemoglobin continued to drop to 6.7 on 06/21 requiring 1 PRBC. 06/21 Patient was seen and examined. Continued hematuria but decreased. Complains of urinary urgency. RN reports some confusion. Nephrostomy tube appeared to have been pulled by patient on accident. CBC Hg 6.7, Hct 20.4, MCV 107.3. Plans to transfuse 1 PRBC today. General: non toxic, no distress, appears at stated age Derm: warm, dry Head: atraumatic, normocephalic, symmetric Eyes: EOMI, no lid lag, anicteric sclera Mouth: no lip lesion, mucus membranes moist Cardiovascular: S1S2 irreg, no murmur Lungs: CTA bilateral, no rhonchi, no rales , no accessory muscle use Abdominal: soft, nontender to palpation, no guarding, no appreciable organomegaly, catheter with bloody drainage and clots Ext: no gross muscle atrophy, no edema, no contractures Neuro: no focal neuro deficits Psych: Alert, oriented, appropriate affect Hematuria: Status post Kcentra in the ED. Telemetry monitoring. Hold Xarelto. Transfuse 1 PRBC. Trend CBC. Urology on board. History of nephrolithiasis with recent right percutaneous nephrostomy tube BENITEZ on CKD: Continue NS at 75 cc/hr. Hold Lisinopril and Aldactone. Atrial fibrillation: Metoprolol 25 mg PO BID. Hold AC due to hematuria. COPD: Symbicort 2 INH BID. Albuterol neb PRN SOB/wheezing. Hypertension: Borderline hypotensive. Resume Metoprolol as above. Aldactone and Lisinopril on hold. Sleep apnea: CPAP PRN. CODE STATUS: NO CODE DVT Prophylaxis: SCD GI Prophylaxis: Designated medical POA if patient is not able to make medical decisions for themselves: Daughter I have reviewed the following protection consultant notes: Urology. I have reviewed the results of the following tests: CBC I have ordered the following tests: CBC tomorrow morning I have discussed the care of this patient with the following independent historian: NICK I have independently interpreted the following test below: I have discussed the management of this patient with the following physician: Objective - Vital Signs Vital signs: Vital Signs Temp 99.1 F 06/21/23 20:00 Pulse 65 06/22/23 08:00 Resp 16 06/22/23 08:00 BP 113/59 06/22/23 08:00 Pulse Ox 96 06/22/23 08:00 FiO2 Intake & Output 06/21/23 06/22/23 06/22/23 18:59 06:59 18:59 Intake Total 240 0 Output Total 0 250 50 Balance 240 -250 -50 Intake: Oral 240 0 Output: Gastric Drainage 0 Drainage 250 50 Right Lateral Back 250 50 Urine 0 Stool 0 Urine/Stool Mix 0 Emesis 0 Oral Regurgitation 0 Other 0 Other: Voiding Method Urinal Urinal Urinal # Voids 1 1 # Bowel Movements 0 - Labs CBC & Chem 7: 06/22/23 08:47 06/21/23 07:39 Labs: Abnormal Lab Results - Last 24 Hours (Table) 06/20/23 06/21/23 06/22/23 Range/Units 04:15 18:53 08:47 RBC 2.07 L 1.90 L (4.30-5.90) m/uL Hgb 7.3 L 6.7 L* (13.0-17.5) gm/dL Hct 21.9 L 20.4 L (39.0-53.0) % MCV 106.0 H 107.3 H (80.0-100.0) fL MCH 35.1 H 35.4 H (25.0-35.0) pg Crossmatch See Detail Microbiology - Last 24 Hours (Table) 06/20/23 04:04 Urine Culture - Final Urine,Voided
--- NOTE | 2023-06-22 12:32 | P.PN ---
Subjective Progress Note Date: 06/22/23 Principal diagnosis: Gross Hematuria The patient underwent a right percutaneous nephrolithotomy on June 16, 2023 and was readmitted June 20, 2023 with bleeding. He reports very mild right flank discomfort. His primary complaint is urinary frequency and a feeling of incomplete bladder emptying. Objective - Vital Signs Vital signs: Vital Signs Temp 99.1 F 06/21/23 20:00 Pulse 71 06/22/23 07:13 Resp 18 06/22/23 07:13 BP 99/55 06/22/23 04:16 Pulse Ox 94 L 06/22/23 07:32 FiO2 Intake & Output 06/21/23 06/22/23 06/22/23 18:59 06:59 18:59 Intake Total 240 0 Output Total 0 250 50 Balance 240 -250 -50 Intake: Oral 240 0 Output: Gastric Drainage 0 Drainage 250 50 Right Lateral Back 250 50 Urine 0 Stool 0 Urine/Stool Mix 0 Emesis 0 Oral Regurgitation 0 Other 0 Other: Voiding Method Urinal Urinal Urinal # Voids 1 1 # Bowel Movements 0 - Constitutional General appearance: Present: average body habitus, cooperative, no acute distress - Psychiatric Psychiatric: Present: A&O x's 3 - Labs CBC & Chem 7: 06/22/23 08:47 06/21/23 07:39 Labs: Abnormal Lab Results - Last 24 Hours (Table) 06/21/23 06/21/23 Range/Units 07:39 18:53 RBC 2.07 L (4.30-5.90) m/uL Hgb 7.3 L (13.0-17.5) gm/dL Hct 21.9 L (39.0-53.0) % MCV 106.0 H (80.0-100.0) fL MCH 35.1 H (25.0-35.0) pg Sodium 136 L (137-145) mmol/L Chloride 108 H (98-107) mmol/L BUN 28 H (9-20) mg/dL Creatinine 1.62 H (0.66-1.25) mg/dL Calcium 7.7 L (8.4-10.2) mg/dL Microbiology - Last 24 Hours (Table) 06/20/23 04:04 Urine Culture - Final Urine,Voided Assessment and Plan (1) Calculus of kidney Current Visit: Yes Status: Acute Code(s): N20.0 - CALCULUS OF KIDNEY SNOMED Code(s): 94162475 Plan: Bladder scan showed a postvoid residual of 563 cc. Under sterile conditions, using 2% lidocaine gel for local anesthesia, I placed a 22 [place] Omer catheter. Approximately 500 cc of bloody urine was drained from the bladder. There were no clots. The catheter was left to gravity drainage. The patient is being transfused. The hemoglobin level will continue to be monitored, and if it continues to drop he will require transfer to a facility that can perform a right renal arteriogram with arterial embolization.
[2023-06-22] MEDS: LIDOCAINE 2% URO-JET JELLY 5 ML KIT URETHRAL STA (12:59)
[2023-06-22 19:20] LABS: Anisocytosis Slight; HCT 22.2 % (39.0-53.0); HGB 7.2 gm/dL (13.0-17.5); MCH 33.9 pg (25.0-35.0); MCHC 32.6 g/dL (31.0-37.0); MCV 104.1 fL (80.0-100.0); Macrocytosis Moderate; Platelet Count 227 k/uL (150-450); RBC 2.13 m/uL (4.30-5.90); WBC 5.6 k/uL (3.8-10.6)
[2023-06-23 10:16] LABS: HCT 22.7 % (39.0-53.0); HGB 7.1 gm/dL (13.0-17.5); Hypochromasia Slight; MCH 32.9 pg (25.0-35.0); MCHC 31.1 g/dL (31.0-37.0); MCV 105.7 fL (80.0-100.0); Macrocytosis Moderate; Mean Platelet Volume 7.9; Platelet Count 215 k/uL (150-450); RBC 2.15 m/uL (4.30-5.90); WBC 5.3 k/uL (3.8-10.6)
[2023-06-23 10:28] LABS: African American GFR (CKD) 46 (>60 ml/min/1.73 sqM); Anion Gap 6 mmol/L; Blood Urea Nitrogen 26 mg/dL (9-20); Carbon Dioxide 24 mmol/L (22-30); Chloride 107 mmol/L (98-107); Glucose 110 mg/dL (74-99); Non-African American GFR(CKD) 39 (>60 ml/min/1.73 sqM); Potassium 4.4 mmol/L (3.5-5.1); Sodium 137 mmol/L (137-145)
--- NOTE | 2023-06-23 12:56 | P.PN ---
Subjective Progress Note Date: 06/23/23 78-year-old male with PMH of atrial fibrillation, COPD, hypertension, sleep apnea, history of nephrolithiasis with recent right percutaneous nephrostomy tube on 06/15 presents to the ED for hematuria. He reports re-starting his Xarelto as instructed on the day of discharge. He reports lightheadedness with changes in position. He denies any chest pain, SOB or palpitations. In the ED he underwent extensive evaluation. BP 150/79, HR 88, RR 18, T 98.2F, 95% on RA. CBC, Coag panel, CMP performed significant for Hg 8.9, Hct 26.2, MCV 104.5, Na 136, BUN 32, Cr 1.78, glu 114, Ca 8.1, total protein 6, alb 3.3. Troponin < 0.012. Mag 3. Lactic acid 1.3. UA > 182 RBCs. EKG sinus rhythm with PVCs. CT AP right nephrostomy tube loop uncurled within the peripery of an upper pole minor calyx, mild-mod strandy perinephril hemorrhage, severe right hydronephrosis. Patient is given Kcentra and admitted for Urology evaluation. The case was discussed with Dr. Dunham in the ED on 06/19 who recommended no surgical intervention and to monitor Hg. If Hg continues to drop, patient may need transfer for arterial embolization. Hemoglobin continued to drop to 6.7 on 06/21 requiring 1 PRBC. Omer catheter was inserted draining dark bloody urine. 06/22 Patient was seen and examined. Continued hematuria in the Omer catheter bag. Reports some lightheadedness with changes in position. Status post 1 PRBC yesterday for Hg 6.7. Hg was 7.2 on repeat yesterday, CBC shows Hg 7.1 Hct 22.7 MCV 105.7. BMP BUN 26, Cr 1.62, glu 110, Ca 8. General: non toxic, no distress, appears at stated age Derm: warm, dry Head: atraumatic, normocephalic, symmetric Eyes: EOMI, no lid lag, anicteric sclera Mouth: no lip lesion, mucus membranes moist Cardiovascular: S1S2 irreg, no murmur Lungs: CTA bilateral, no rhonchi, no rales , no accessory muscle use Abdominal: soft, nontender to palpation, no guarding, no appreciable organomegaly, Omer catheter with bloody drainage and clots Ext: no gross muscle atrophy, no edema, no contractures Neuro: no focal neuro deficits Psych: Alert, oriented, appropriate affect Hematuria: Status post Kcentra in the ED. Telemetry monitoring. Hold Xarelto. Status post 1 PRBC 06/21. Trend CBC. Urology on board. History of nephrolithiasis with recent right percutaneous nephrostomy tube BENITEZ on CKD: Continue NS at 75 cc/hr. Hold Lisinopril and Aldactone. Atrial fibrillation: Metoprolol 25 mg PO BID. Hold AC due to hematuria. COPD: Symbicort 2 INH BID. Albuterol neb PRN SOB/wheezing. Hypertension: Hypotensive. Resume Metoprolol as above. Aldactone and Lisinopril on hold. Sleep apnea: CPAP PRN. CODE STATUS: NO CODE DVT Prophylaxis: SCD GI Prophylaxis: Designated medical POA if patient is not able to make medical decisions for themselves: Daughter I have reviewed the following senior solutions consultant notes: Urology. I have reviewed the results of the following tests: CBC, BMP I have ordered the following tests: Repeat CBC tomorrow morning. I have discussed the care of this patient with the following independent historian: NICK. I have independently interpreted the following test below: I have discussed the management of this patient with the following physician: Objective - Vital Signs Vital signs: Vital Signs Temp 98.0 F 06/23/23 00:00 Pulse 68 06/23/23 04:00 Resp 14 06/23/23 04:00 BP 93/54 06/23/23 04:00 Pulse Ox 95 06/23/23 04:00 FiO2 Intake & Output 06/22/23 06/23/23 06/23/23 18:59 06:59 18:59 Intake Total 550 236 Output Total 500 600 Balance 50 -600 236 Intake: Oral 240 236 Blood Product 310 Rc As-1 Unit 310 [id number] Output: Drainage 100 100 Right Lateral Back 100 100 Urine 400 500 Other: Voiding Method Urinal Indwelling Catheter - Labs CBC & Chem 7: 06/23/23 09:13 06/23/23 09:13 Labs: Abnormal Lab Results - Last 24 Hours (Table) 06/20/23 06/22/23 06/22/23 Range/Units 04:15 08:47 18:46 RBC 1.90 L 2.13 L (4.30-5.90) m/uL Hgb 6.7 L* 7.2 L (13.0-17.5) gm/dL Hct 20.4 L 22.2 L (39.0-53.0) % MCV 107.3 H 104.1 H (80.0-100.0) fL MCH 35.4 H (25.0-35.0) pg RDW 16.0 H (11.5-15.5) % Crossmatch See Detail
--- NOTE | 2023-06-23 16:09 | P.PN ---
Subjective Progress Note Date: 06/23/23 No acute overnight event, urine in the kaiser can PCN still hematuric, but mainly consistent in old blood Objective - Vital Signs Vital signs: Vital Signs Temp 98.3 F 06/23/23 11:46 Pulse 68 06/23/23 11:46 Resp 20 06/23/23 11:46 BP 82/34 06/23/23 11:46 Pulse Ox 95 06/23/23 11:46 FiO2 Intake & Output 06/22/23 06/23/23 06/23/23 18:59 06:59 18:59 Intake Total 550 346 Output Total 500 600 125 Balance 50 -600 221 Intake: Oral 240 346 Blood Product 310 Rc As-1 Unit 310 [id number] Output: Drainage 100 100 125 Right Lateral Back 100 100 125 Urine 400 500 Other: Voiding Method Urinal Indwelling Catheter Indwelling Catheter - Constitutional General appearance: Present: no acute distress - Gastrointestinal General gastrointestinal: Present: soft. Absent: distended, tenderness - Psychiatric Psychiatric: Present: A&O x's 3 - Labs CBC & Chem 7: 06/23/23 09:13 06/23/23 09:13 Labs: Abnormal Lab Results - Last 24 Hours (Table) 06/22/23 06/23/23 06/23/23 Range/Units 18:46 09:13 09:13 RBC 2.13 L 2.15 L (4.30-5.90) m/uL Hgb 7.2 L 7.1 L (13.0-17.5) gm/dL Hct 22.2 L 22.7 L (39.0-53.0) % MCV 104.1 H 105.7 H (80.0-100.0) fL RDW 16.0 H 16.0 H (11.5-15.5) % BUN 26 H (9-20) mg/dL Creatinine 1.62 H (0.66-1.25) mg/dL Glucose 110 H (74-99) mg/dL Calcium 8.0 L (8.4-10.2) mg/dL Assessment and Plan Assessment: 78 yo S/P right PCNL by Dr pascual, restarted Xarelto early causing gross hematuria. Hgb stable now -continue to hold xarelto -Keep PCN and kaiser to drainage
[2023-06-24 11:10] LABS: HCT 23.1 % (39.0-53.0); HGB 7.2 gm/dL (13.0-17.5); Hypochromasia Moderate; MCH 34.1 pg (25.0-35.0); MCHC 31.2 g/dL (31.0-37.0); MCV 109.3 fL (80.0-100.0); Macrocytosis Marked; Mean Platelet Volume 8.3; Platelet Count 234 k/uL (150-450); RBC 2.11 m/uL (4.30-5.90); RDW 15.9 % (11.5-15.5); WBC 6.7 k/uL (3.8-10.6)
--- NOTE | 2023-06-24 12:11 | P.PN ---
Subjective Progress Note Date: 06/24/23 78-year-old male with PMH of atrial fibrillation, COPD, hypertension, sleep apnea, history of nephrolithiasis with recent right percutaneous nephrostomy tube on 06/15 presents to the ED for hematuria. He reports re-starting his Xarelto as instructed on the day of discharge. He reports lightheadedness with changes in position. He denies any chest pain, SOB or palpitations. In the ED he underwent extensive evaluation. BP 150/79, HR 88, RR 18, T 98.2F, 95% on RA. CBC, Coag panel, CMP performed significant for Hg 8.9, Hct 26.2, MCV 104.5, Na 136, BUN 32, Cr 1.78, glu 114, Ca 8.1, total protein 6, alb 3.3. Troponin < 0.012. Mag 3. Lactic acid 1.3. UA > 182 RBCs. EKG sinus rhythm with PVCs. CT AP right nephrostomy tube loop uncurled within the peripery of an upper pole minor calyx, mild-mod strandy perinephril hemorrhage, severe right hydronephrosis. Patient is given Kcentra and admitted for Urology evaluation. The case was discussed with Dr. Dunham in the ED on 06/19 who recommended no surgical intervention and to monitor Hg. If Hg continues to drop, patient may need transfer for arterial embolization. Hemoglobin continued to drop to 6.7 on 06/21 requiring 1 PRBC. Omer catheter was inserted on 06/21 draining dark bloody urine. 06/22 Patient was seen and examined. Improved hematuria in the Omer catheter bag. Reports some lightheadedness with changes in position. Status post 1 PRBC on 06/21. Urology recommends holding Xarelto and monitoring of Hg, continue Omer. CBC shows Hg 7.2 Hct 23.1 MCV 109.3 General: non toxic, no distress, appears at stated age Derm: warm, dry Head: atraumatic, normocephalic, symmetric Eyes: EOMI, no lid lag, anicteric sclera Mouth: no lip lesion, mucus membranes moist Cardiovascular: S1S2 irreg, no murmur Lungs: CTA bilateral, no rhonchi, no rales , no accessory muscle use Abdominal: soft, nontender to palpation, no guarding, no appreciable organomegaly, Omer catheter with bloody drainage and clots Ext: no gross muscle atrophy, no edema, no contractures Neuro: no focal neuro deficits Psych: Alert, oriented, appropriate affect Hematuria: Status post Kcentra in the ED. Telemetry monitoring. Hold Xarelto. Status post 1 PRBC 06/21. Trend CBC. Urology on board. History of nephrolithiasis with recent right percutaneous nephrostomy tube BENITEZ on CKD: Continue NS at 75 cc/hr. Hold Lisinopril and Aldactone. Atrial fibrillation: Metoprolol 25 mg PO BID. Hold AC due to hematuria. COPD: Symbicort 2 INH BID. Albuterol neb PRN SOB/wheezing. Hypertension: Hypotensive. Resume Metoprolol as above. Aldactone and Lisinopril on hold. Sleep apnea: CPAP PRN. CODE STATUS: NO CODE DVT Prophylaxis: SCD GI Prophylaxis: Designated medical POA if patient is not able to make medical decisions for themselves: Daughter I have reviewed the following sap consultant notes: Urology. I have reviewed the results of the following tests: CBC. I have ordered the following tests: Daily CBC. Iron studies, B12, Folate ordered. I have discussed the care of this patient with the following independent historian: RN. I have independently interpreted the following test below: I have discussed the management of this patient with the following physician: Objective - Vital Signs Vital signs: Vital Signs Temp 97.0 F L 06/24/23 04:00 Pulse 69 06/24/23 04:00 Resp 14 06/24/23 04:00 BP 133/57 06/24/23 04:00 Pulse Ox 94 L 06/24/23 04:00 FiO2 Intake & Output 06/23/23 06/24/23 06/24/23 18:59 06:59 18:59 Intake Total 1356 Output Total 825 790 Balance 531 -790 Intake: Intake, IV Titration 900 Amount Sodium Chloride 0.9% 1, 900 000 ml @ 75 mls/hr IV . [id number] [facility] Rx#:[id number] Oral 456 Output: Drainage 125 190 Right Lateral Back 125 190 Urine 700 600 Other: Voiding Method Indwelling Catheter Indwelling Catheter - Labs CBC & Chem 7: 06/24/23 10:44 06/23/23 09:13 Labs: Abnormal Lab Results - Last 24 Hours (Table) 06/23/23 06/23/23 Range/Units 09:13 09:13 RBC 2.15 L (4.30-5.90) m/uL Hgb 7.1 L (13.0-17.5) gm/dL Hct 22.7 L (39.0-53.0) % MCV 105.7 H (80.0-100.0) fL RDW 16.0 H (11.5-15.5) % BUN 26 H (9-20) mg/dL Creatinine 1.62 H (0.66-1.25) mg/dL Glucose 110 H (74-99) mg/dL Calcium 8.0 L (8.4-10.2) mg/dL
--- NOTE | 2023-06-24 12:44 | P.PN ---
Subjective Progress Note Date: 06/24/23 No acute overnight event, still having hematuria but the urine in the Kaiser catheter is clearing up, his hemoglobin is stable Objective - Vital Signs Vital signs: Vital Signs Temp 97.9 F 06/24/23 08:56 Pulse 68 06/24/23 11:14 Resp 16 06/24/23 11:14 BP 105/53 06/24/23 11:14 Pulse Ox 100 06/24/23 11:14 FiO2 Intake & Output 06/23/23 06/24/23 06/24/23 18:59 06:59 18:59 Intake Total 1356 Output Total 825 790 700 Balance 531 790 -700 Intake: Intake, IV Titration 900 Amount Sodium Chloride 0.9% 1, 900 000 ml @ 75 mls/hr IV . [id number] [facility] Rx#:[id number] Oral 456 Output: Drainage 125 190 300 Right Lateral Back 125 190 300 Urine 700 600 400 Uretheral (Kaiser) 200 Other: Voiding Method Indwelling Catheter Indwelling Catheter Indwelling Catheter - Constitutional General appearance: Present: no acute distress - Gastrointestinal General gastrointestinal: Present: soft. Absent: distended, tenderness - Psychiatric Psychiatric: Present: A&O x's 3 - Labs CBC & Chem 7: 06/24/23 10:44 06/23/23 09:13 Labs: Abnormal Lab Results - Last 24 Hours (Table) 06/24/23 Range/Units 10:44 RBC 2.11 L (4.30-5.90) m/uL Hgb 7.2 L (13.0-17.5) gm/dL Hct 23.1 L (39.0-53.0) % MCV 109.3 H (80.0-100.0) fL RDW 15.9 H (11.5-15.5) % Macrocytosis Marked A Assessment and Plan Assessment: 78 yo S/P right PCNL by Dr pascual, restarted Xarelto early causing gross hematuria. Hgb stable now -continue to hold xarelto -Keep PCN and kaiser to drainage -From urology standpoint if urine color continues to improve we will plan on removing the catheter tomorrow with possible discharge home tomorrow from our standpoint
[2023-06-24] MEDS: HYDROcodone/APAP 5-325MG 1 EACH TAB PO PRN (22:12)
[2023-06-25 08:58] VITALS: RESP 16; TEMP 97.7
[2023-06-25 11:20] LABS: Anisocytosis Slight; HCT 21.3 % (39.0-53.0); Hypochromasia Slight; MCHC 32.8 g/dL (31.0-37.0); MCV 106.6 fL (80.0-100.0); Macrocytosis Moderate; Mean Platelet Volume 8.1; Platelet Count 229 k/uL (150-450); RDW 16.2 % (11.5-15.5); WBC 7.3 k/uL (3.8-10.6)
[2023-06-25 11:43] LABS: African American GFR (CKD) 48 (>60 ml/min/1.73 sqM); Anion Gap 6 mmol/L; Blood Urea Nitrogen 18 mg/dL (9-20); Carbon Dioxide 23 mmol/L (22-30); Chloride 112 mmol/L (98-107); Glucose 96 mg/dL (74-99); Non-African American GFR(CKD) 41 (>60 ml/min/1.73 sqM); Potassium 4.5 mmol/L (3.5-5.1); Sodium 141 mmol/L (137-145)
[2023-06-25 12:44] VITALS: BP 106/49; PULSE 87
--- NOTE | 2023-06-25 12:47 | P.DS ---
Providers Date of admission: 06/20/23 06:48 Expected date of discharge: 06/25/23 Attending physician: Luis Manrique MD Consults: 06/20/23 06:48 Consult Physician Routine Consulting Provider: Kermit Dunham Consult Reason/Comments: known,hematurai Do you want consulting provider notified?: Yes 06/20/23 14:20 Consult Physician Routine Consulting Provider: Kermit Dunham Consult Reason/Comments: Hematuria Do you want consulting provider notified?: Yes Primary care physician: Justin Houston Hospital Course: Discharge Diagnosis: Hematuria due to percutaneous nephrolithotomy with early anticoagulation restart Acute blood loss anemia BENITEZ on CKD Paroxysmal atrial fibrillation COPD without exacerbation Hypertension Sleep apnea Hospital Course: Patient 78-year-old male with known nephrolithiasis status post right percutaneous nephrostomy and laser lithotripsy on 06/15, A-fib anticoagulated with Xarelto, COPD, hypertension, and sleep apnea who presented to the emergency department with hematuria. On arrival to the ER he underwent extensive evaluation. Vital signs were remarkable for a blood pressure 150/79. Initial laboratory analysis was remarkable for hemoglobin of 8.9, hematocrit 26.2, BUN 32, creatinine 1.78 (baseline 1.5), and urinalysis was remarkable for gross hematuria. Patient underwent CT abdomen and pelvis which demonstrated right nephrostomy tube uncontrolled within the periphery of an upper pole minor calyx with mild to moderate perinephric hemorrhage, severe right-sided hydronephrosis likely hemorrhagic urine with right ureteric stent in low position. Patient was admitted and urology was consulted. He required 1 unit of packed red blood cells. His hemoglobin then continued to remain stable off of his anticoagu lation. He is followed by urology. His creatinine returned to baseline. He was determined stable for discharge home. Follow-up: Repeat CBC in 3 days. Stay off of Xarelto. Follow-up with Dr. Barksdale in 2 to 3 days. Follow-up Dr. Houston in 2-3 days. Ferrous sulfate 325 mg PO daily Pending: anemia labs Patient seen and examined at bedside.Doing well other than shortness of breath with ambulation Vital signs reviewed and stable. General: Nontoxic, no distress, appears at stated age Cardiovascular: S1S2 reg, no murmur, positive posterior tibial pulse bilateral, Lungs: CTA bilateral, no rhonchi, no rales, no accessory muscle use Abdominal: Soft, nontender to palpation, no guarding, no appreciable organomegaly Ext: No gross muscle atrophy, no edema b/l lower extremities, no contractures Neuro: CN II-XI grossly intact, no focal neuro deficits Psych: Alert, oriented, appropriate affect A total of 45 minutes of time were spent preparing this complex discharge sum anna. Patient was discharged on 06/25/23. This dictation was prepared using [employer] voice recognition software. Though every attempt is made to correct errors during dictation some may still exist. Plan - Discharge Summary Discharge Rx Participant: No New Discharge Prescriptions: New Ferrous Sulfate [Feosol] 325 mg PO DAILY #30 tab Continue traZODone HCL 150 mg PO HS PRN PRN Reason: Insomnia Budesonide-Formot 160-4.5 Mcg [Symbicort 160-4.5 Mcg Inhaler] 2 puff INHALATION RT-BID #1 inh Folic Acid 1 mg PO DAILY #14 tab Metoprolol Tartrate [Lopressor] 25 mg PO BID #60 tab Tamsulosin [Flomax] 0.4 mg PO DAILY 30 Days #30 cap lisinopriL 2.5 mg PO DAILY HYDROcodone/APAP 5-325MG [[place] 5-325] 1 tab PO Q6HR PRN #6 tab PRN Reason: Pain Spironolactone 25 mg PO DAILY Albuterol Nebulized [Ventolin Nebulized] 2.5 mg INHALATION RT-BID Multivitamins, Thera [Multivitamin (formulary)] 1 tab PO DAILY Atorvastatin [Lipitor] 20 mg PO HS Discontinued Rivaroxaban [Xarelto] 20 mg PO W/SUPPER #30 tab Vit B12 Complex(Unk) 1 tab PO DAILY Discharge Medication List traZODone HCL 150 mg PO HS PRN 02/18/19 [History] Budesonide-Formot 160-4.5 Mcg [Symbicort 160-4.5 Mcg Inhaler] 2 puff INHALATION RT-BID #1 inh 11/18/20 [Rx] Folic Acid 1 mg PO DAILY #14 tab 11/18/20 [Rx] Metoprolol Tartrate [Lopressor] 25 mg PO BID #60 tab 11/18/20 [Rx] HYDROcodone/APAP 5-325MG [[place] 5-325] 1 tab PO Q6HR PRN #6 tab 06/17/23 [Rx] Tamsulosin [Flomax] 0.4 mg PO DAILY 30 Days #30 cap 06/17/23 [Rx] Albuterol Nebulized [Ventolin Nebulized] 2.5 mg INHALATION RT-BID 06/20/23 [History] Atorvastatin [Lipitor] 20 mg PO HS 06/20/23 [History] Multivitamins, Thera [Multivitamin (formulary)] 1 tab PO DAILY 06/20/23 [History] Spironolactone 25 mg PO DAILY 06/20/23 [History] lisinopriL 2.5 mg PO DAILY 06/20/23 [History] Ferrous Sulfate [Feosol] 325 mg PO DAILY #30 tab 06/25/23 [Rx] Follow up Appointment(s)/Referral(s): Justin Houston MD [Primary Care Provider] - 1-2 days Lavelle Barksdale MD [STAFF PHYSICIAN] - 1 Week Ambulatory/Diagnostic Orders: Complete Blood Count w/diff [LAB.AMB] Time Frame: 3 Days, Location: None Selected Activity/Diet/Wound Care/Special Instructions: Activity: As tolerated Diet: Heart healthy Special Instructions: Repeat lab work in 3 days stay off xarelto Empty nephrostomy bag daily Keep nephrostomy bag below the level of your bladder. Discharge Disposition: HOME SELF-CARE
[2023-06-25 15:45] LABS: % Iron Saturation 6.76 (15.00-50.00); Ferritin 90.6 ng/mL (22.0-322.0)
--- NOTE | 2023-06-25 20:31 | P.PN ---
Subjective Urine from the Kaiser catheter is blood-tinged, he was still having hematuria from the nephrostomy tube but improving. Hemoglobin stable at 7 Objective - Vital Signs Vital signs: Vital Signs Temp 97.7 F 06/25/23 08:38 Pulse 87 06/25/23 11:54 Resp 16 06/25/23 11:54 BP 106/49 06/25/23 11:54 Pulse Ox 97 06/25/23 11:54 FiO2 Intake & Output 06/25/23 06/25/23 06/26/23 06:59 18:59 06:59 Intake Total 0 Output Total 910 Balance -910 0 Intake: Oral 0 Output: Drainage 910 Right Lateral Back 910 Other: Voiding Method Indwelling Catheter Indwelling Catheter # Voids 1 - Constitutional General appearance: Present: no acute distress - Gastrointestinal General gastrointestinal: Present: soft. Absent: distended, tenderness - Psychiatric Psychiatric: Present: A&O x's 3 - Labs CBC & Chem 7: 06/25/23 10:16 06/25/23 10:20 Labs: Abnormal Lab Results - Last 24 Hours (Table) 06/25/23 06/25/23 06/25/23 Range/Units 10:16 10:16 10:16 RBC 2.00 L (4.30-5.90) m/uL Hgb 7.0 L (13.0-17.5) gm/dL Hct 21.3 L (39.0-53.0) % MCV 106.6 H (80.0-100.0) fL RDW 16.2 H (11.5-15.5) % Chloride (98-107) mmol/L Creatinine (0.66-1.25) mg/dL Calcium (8.4-10.2) mg/dL Iron 23 L (65-175) UG/DL % Saturation 6.76 L (15.00-50.00) Folate 40.00 H (4.40-31.00) ng/mL 06/25/23 Range/Units 10:20 RBC (4.30-5.90) m/uL Hgb (13.0-17.5) gm/dL Hct (39.0-53.0) % MCV (80.0-100.0) fL RDW (11.5-15.5) % Chloride 112 H (98-107) mmol/L Creatinine 1.57 H (0.66-1.25) mg/dL Calcium 8.0 L (8.4-10.2) mg/dL Iron (65-175) UG/DL % Saturation (15.00-50.00) Folate (4.40-31.00) ng/mL Assessment and Plan Assessment: 78 yo S/P right PCNL by Dr pascual, restarted Xarelto early causing gross hematuria. Hgb stable now -continue to hold xarelto -Keep PCN -kaiser can be removed this am -From urology standpoint if able to void ok for discharge
== END 2023-06-25 13:47 | disposition home health service (06) | DRG 920 ==
LOC: EC 02:42 → 3SCARD 06:48
PROVIDERS: ADMIT Internal Medicine; ATTEND Internal Medicine
PROC: 30233N1 Transfusion of Nonautologous Red Blood Cells into Peripheral Vein, Percutaneous Approach (ICD-10-PCS; principal; 2023-06-22)
DX: N99.820 Postprocedural hemorrhage of a genitourinary system organ or structure following a genitourinary system procedure (principal); D62 Acute posthemorrhagic anemia; N17.9 Acute kidney failure, unspecified; D68.32 Hemorrhagic disorder due to extrinsic circulating anticoagulants; S37.011A Minor contusion of right kidney, initial encounter; N20.1 Calculus of ureter; I95.9 Hypotension, unspecified; J44.9 Chronic obstructive pulmonary disease, unspecified; I48.0 Paroxysmal atrial fibrillation; R31.0 Gross hematuria; Z93.6 Other artificial openings of urinary tract status; I12.9 Hypertensive chronic kidney disease with stage 1 through stage 4 chronic kidney disease, or unspecified chronic kidney disease; N18.9 Chronic kidney disease, unspecified; I49.3 Ventricular premature depolarization; G47.33 Obstructive sleep apnea (adult) (pediatric); R39.14 Feeling of incomplete bladder emptying; M19.041 Primary osteoarthritis, right hand; M19.042 Primary osteoarthritis, left hand; F17.200 Nicotine dependence, unspecified, uncomplicated; Z79.01 Long term (current) use of anticoagulants; Z79.51 Long term (current) use of inhaled steroids; Z79.899 Other long term (current) drug therapy; Z87.442 Personal history of urinary calculi
CPT/HCPCS: 36415; 74176; 80048; 80053; 81001; 82607; 82728; 82746; 83540; 83550; 83605; 83735; 84100; 84484; 85025; 85027; 85610; 85730; 86850; 86900; 86901; 86920; 87086; 93005; 94640; 94760; 96360; 96361; 96365; 99285

== ENCOUNTER 2023-10-26 11:12 | Emergency (ER) | payer MEDICARE ==
--- NOTE | 2023-10-26 11:50 | ED ---
General Adult HPI - General Source: patient, family, RN notes reviewed Mode of arrival: wheelchair Limitations: no limitations <Aleah Orellana - Last Filed: 10/26/23 11:49> <Carlos A Falcon - Last Filed: 10/26/23 14:49> - General Chief complaint: Nausea/Vomiting/Diarrhea Stated complaint: Constipation Time Seen by Provider: 10/26/23 11:30 - History of Present Illness Initial comments: Quick [id number] male presents emergency department chief complaint of constipation. Patient bit of the past month he has been having difficulties with bowel movements. He has been taking milk of magnesia at home with minimal relief. Last bowel movement was a small 1 yesterday morning. States he still passing gas. Denies abdominal pain. Denies history of dark or tarry stools or hematochezia. Denies history of GI bleeds. (Aleah Orellana) Dictation was produced using [employer] dictation software. please excuse any grammatical, word or spelling errors. Chief Complaint: 78-year-old male presents to the emergency department for diarrhea History of Present Illness: Patient is a-year-old male with last 2 weeks has been taking milk of magnesia daily. States that over the last several days his stool has been watery. Denies any abdominal pain. Patient states that otherwise he feels pretty well. He states that he is taking milk magnesia daily to prevent constipation. States that he had a really hard stool prior to starting on this Milk of Magnesia. The ROS documented in this emergency department record has been reviewed and confirmed by me. Those systems with pertinent positive or negative responses have been documented in the HPI. All other systems are other negative and/or noncontributory. (Carlos A Falcon) - Related Data Home Medications Medication Instructions Recorded Confirmed traZODone HCL 150 mg PO HS PRN 02/18/19 06/20/23 Albuterol Nebulized [Ventolin 2.5 mg INHALATION RT-BID 06/20/23 06/20/23 Nebulized] Atorvastatin [Lipitor] 20 mg PO HS 06/20/23 06/20/23 Multivitamins, Thera [Multivitamin 1 tab PO DAILY 06/20/23 06/20/23 (formulary)] Spironolactone 25 mg PO DAILY 06/20/23 06/20/23 lisinopriL 2.5 mg PO DAILY 06/20/23 06/20/23 Previous Rx's Medication Instructions Recorded Budesonide-Formot 160-4.5 Mcg 2 puff INHALATION RT-BID #1 inh 11/18/20 [Symbicort 160-4.5 Mcg Inhaler] Folic Acid 1 mg PO DAILY #14 tab 11/18/20 Metoprolol Tartrate [Lopressor] 25 mg PO BID #60 tab 11/18/20 HYDROcodone/APAP 5-325MG [Cushing 1 tab PO Q6HR PRN #6 tab 06/17/23 5-325] Tamsulosin [Flomax] 0.4 mg PO DAILY 30 Days #30 cap 06/17/23 Ferrous Sulfate [Feosol] 325 mg PO DAILY #30 tab 06/25/23 Allergies Allergy/AdvReac Type Severity Reaction Status Date / Time No Known Allergies Allergy Verified 10/26/23 11:33 Review of Systems ROS Other: All systems not noted in ROS Statement are negative. <Aleah Orellana - Last Filed: 10/26/23 11:49> ROS Other: All systems not noted in ROS Statement are negative. <Carlos A Falcon - Last Filed: 10/26/23 14:49> ROS Statement: Those systems with pertinent positive or pertinent negative responses have been documented in the HPI. Past Medical History Past Medical History: Atrial Fibrillation, COPD, GI Bleed, Hypertension, Osteoarthritis (OA), Sleep Apnea/CPAP/BIPAP Additional Past Medical History / Comment(s): Nephrolithiasis (3 stones), arthritis bilateral hands/thumbs, PRUDENCIO without device, R knee "unhappy triad", L foot drop d/t sciatica, lower GI bleed thought d/t constipation, recent admission for flare up of COPD & dx. w/a-fib per pt. History of Any Multi-Drug Resistant Organisms: None Reported Past Surgical History: Hernia Repair, Orthopedic Surgery, Tonsillectomy Additional Past Surgical History / Comment(s): RT KNEE SCOPE, BILATERAL CATARACTS with lens implants. COLONOSCOPY with benign polypectomy, 06/05/15 umb hernia and R ing. hernia repair. stent kidney stone June 15 Past Anesthesia/Blood Transfusion Reactions: No Reported Reaction Past Psychological History: No Psychological Hx Reported Smoking Status: Current every day smoker Past Alcohol Use History: None Reported Past Drug Use History: None Reported - Past Family History Sister(s) Family Medical History: Cancer Father Family Medical History: Cancer Additional Family Medical History / Comment(s): Father had lung and colon cancer. He had cirrhosis. He just before his 80th birthday. He was a nonsmoker and a nondrinker. Mother Family Medical History: Diabetes Mellitus Additional Family Medical History / Comment(s): Mother was overweight. She at age 87 yrs. <Aleah Orellana - Last Filed: 10/26/23 11:49> General Exam Limitations: no limitations <Aleah Orellana - Last Filed: 10/26/23 11:49> <Carlos A Falcon - Last Filed: 10/26/23 14:49> - General Exam Comments Initial Comments: Visual Physical Exam Vital signs reviewed General: Well-appearing, nontoxic, no acute distress. Head: Normocephalic, atraumatic Eyes: PERRLA, EOMI ENT: Airway patent Chest: Nonlabored breathing Skin: No visual rash, normal skin tone Neuro: Alert and oriented 3 Musculoskeletal: No gross abnormalities (Aleah Orellana) PHYSICAL EXAM: General Impression: Alert and oriented x3, not in acute distress HEENT: Normocephalic atraumatic, extra-ocular movements intact, pupils equal and reactive to light bilaterally, mucous membranes moist. Cardiovascular: Heart regular rate and rhythm Chest: Able to complete full sentences, no retractions, no tachypnea Abdomen: abdomen soft, non-tender, non-distended, no organomegaly Musculoskeletal: Pulses present and equal in all extremities, no peripheral edema Motor: no focal deficits noted Neurological: CN II-XII grossly intact, no focal motor or sensory deficits noted Skin: Intact with no visualized rashes Psych: Normal affect and mood (Carlos A Falcon) Course Vital Signs 10/26/23 10/26/23 11:30 14:43 Temperature 98.3 F 98.4 F Pulse Rate 98 73 Respiratory 16 18 Rate Blood Pressure 113/80 102/56 O2 Sat by Pulse 94 L 97 Oximetry Medical Decision Making <Aleah Orellana - Last Filed: 10/26/23 11:49> - Lab Data Result diagrams: 10/26/23 13:00 10/26/23 13:00 <WilverCarlos A smith D - Last Filed: 10/26/23 14:49> - Medical Decision Making I completed the quick note portion of this chart signed Aleah Orellana PA-C (Aleah Orellana) Was pt. sent in by a medical professional or institution (LORELE[facility] Dinh, WAIST PLEATER, urgent care, hospital, or snf...) When possible be specific @ -No Did you speak to anyone other than the patient for history (EMS, parent, family, police, friend...)? What history was obtained from this source @ -No Did you review nursing and triage notes (agree or disagree)? Why? @ -I reviewed and agree with nursing and triage notes Were old charts reviewed (outside hosp., previous admission, EMS record, old EKG, old radiological studies, urgent care reports/EKG's, snf records)? Report findings @ -No old charts were reviewed Differential Diagnosis (chest pain, altered mental status, abdominal pain women, abdominal pain men, vaginal bleeding, musculoskeletal, weakness, fever, dyspnea, syncope, headache, dizziness, GI bleed, back pain, seizure, CVA, palpatations, mental health)? @ -Constipation, colitis, inflammatory bowel disease EKG interpreted by me (3pts min.). @ -None done X-rays interpreted by me (1pt min.). @ -KUB x-ray shows air-fluid levels CT interpreted by me (1pt min.). @ -None done U/S interpreted by me (1pt. min.). @ -None done What testing was considered but not performed or refused? (CT, X-rays, U/S, labs)? Why? @ -None What meds were considered but not given or refused? Why? @ -None Was smoking cessation discussed for >3mins.? @ -No Were there social determinants of health that impacted care today? How? (H omelessness, low income, unemployed, alcoholism, drug addiction, transportation, low edu. Level, literacy, decrease access to med. care, shelter, rehab)? @ -No Was there de-escalation of care discussed even if they declined (Discuss DNR or withdrawal of care, Hospice)? DNR status @ -No What co-morbidities impacted this encounter? (DM, HTN, Smoking, COPD, CAD, Cancer, CVA, ARF, Chemo, Hep., AIDS, mental health diagnosis, sleep apnea, morbid obesity)? @ -None Was patient admitted / discharged? Hospital course, mention meds given and route, prescriptions, significant lab abnormalities, going to OR and other pertinent info. @ -78-year-old male presents to the emergency department with persistent diarrhea. Patient takes MiraLAX daily. He has been taking this daily for the last couple weeks. Vital signs stable. Abdomen soft nonsurgical. Laboratory evaluation obtained. Creatinine is elevated 2.14. Patient given IV fluids. Rest of labs within acceptable limits. Patient reevaluated bedside 2:45 PM found to be stable to condition. Patient will be discharged advised follow-up with primary care doctor. Patient advised to discontinue use of MiraLAX for the time being. Did you discuss the management of the patient with other professionals (professionals i.e. , PA, WAIST PLEATER, lab, RT, psych nurse, socially responsible investment adviser, commercial property manager, teacher, chief diversity officer, correctional casework specialist)? Give summary @ -No Was critical care preformed (if so, how long)? @ -No Undiagnosed new problem with uncertain prognosis? @ -No Drug Therapy requiring intensive monitoring for toxicity (Heparin, Nitro, Insulin, Cardizem)? @ -No Were any procedures done? @ -No Diagnosis/symptom? Acute, or Chronic, or Acute on Chronic? Uncomplicated (without systemic symptoms) or Complicated (systemic symptoms)? @ -Diarrhea secondary to excessive laxative use Side effects of treatment? @ -No Exacerbation, Progression, or Severe Exacerbation? @ -No Poses a threat to life or bodily function? How? (Chest pain, USA, [place], pneumonia, PE, COPD, DKA, ARF, appy, cholecystitis, CVA, Diverticulitis, Homicidal, Suicidal, threat to staff... and all critical care pts) @ -No (Carlos A Falcon) - Lab Data Lab Results 10/26/23 10/26/23 Range/Units 13:00 13:00 WBC 5.2 (3.8-10.6) k/uL RBC 4.24 L (4.30-5.90) m/uL Hgb 12.1 L (13.0-17.5) gm/dL Hct 37.9 L (39.0-53.0) % MCV 89.3 (80.0-100.0) fL MCH 28.5 (25.0-35.0) pg MCHC 31.9 (31.0-37.0) g/dL RDW 18.5 H (11.5-15.5) % Plt Count 181 (150-450) k/uL MPV 7.7 Neutrophils % 75 % Lymphocytes % 11 % Monocytes % 8 % Eosinophils % 3 % Basophils % 1 % Neutrophils # 3.9 (1.3-7.7) k/uL Lymphocytes # 0.6 L (1.0-4.8) k/uL Monocytes # 0.4 (0-1.0) k/uL Eosinophils # 0.2 (0-0.7) k/uL Basophils # 0.0 (0-0.2) k/uL Hypochromasia Slight Anisocytosis Slight Sodium 135 L (137-145) mmol/L Potassium 5.2 H (3.5-5.1) mmol/L Chloride 97 L (98-107) mmol/L Carbon Dioxide 26 (22-30) mmol/L Anion Gap 12 mmol/L BUN 26 H (9-20) mg/dL Creatinine 2.14 H (0.66-1.25) mg/dL Est GFR (CKD-EPI)AfAm 33 (>60 ml/min/1.73 sqM) Est GFR (CKD-EPI)NonAf 28 (>60 ml/min/1.73 sqM) Glucose 113 H (74-99) mg/dL Calcium 8.7 (8.4-10.2) mg/dL Total Bilirubin 1.2 (0.2-1.3) mg/dL AST 26 (17-59) U/L ALT 16 (4-49) U/L Alkaline Phosphatase 97 (38-126) U/L Total Protein 7.0 (6.3-8.2) g/dL Albumin 4.0 (3.5-5.0) g/dL Disposition <Aleah Orellana - Last Filed: 10/26/23 11:49> Is patient prescribed a controlled substance at d/c from ED?: No Time of Disposition: 14:49 <Cralos A Falcon - Last Filed: 10/26/23 14:49> Clinical Impression: Diarrhea Disposition: HOME SELF-CARE Condition: Good Instructions (If sedation given, give patient instructions): Acute Diarrhea (ED) Referrals: Justin Houston MD [Primary Care Provider] - 1-2 days
--- NOTE | 2023-10-26 12:27 | XR ---
EXAMINATION TYPE: XR KUB DATE OF EXAM: 10/26/2023 Comparison: 06/16/2023 Clinical History: 78-year-old male constipation Findings: Scattered small air-fluid levels throughout the colon. Gassy colon is present. No significant stool i s seen. No dilated small bowel loops. Suspect eventration right hemidiaphragm. No evidence for free i ntraperitoneal air. Degenerated levoconvex scoliosis lumbar spine. Mild degenerative change both hips . Impression: 1. Some air-fluid levels scattered throughout the colon. Correlate for liquid stool/diarrheal state/e nteritis. 2. No significant stool burden. Overall nonobstructive bowel gas pattern. [facility], , 10/26/2023 12:25 PM
[2023-10-26 13:16] LABS: Anisocytosis Slight; Basophils % (A) 1 %; Eosinophils # (A) 0.2 k/uL (0-0.7); Eosinophils % (A) 3 %; HCT 37.9 % (39.0-53.0); HGB 12.1 gm/dL (13.0-17.5); Hypochromasia Slight; Lymphocytes # (A) 0.6 k/uL (1.0-4.8); Lymphocytes % (A) 11 %; MCH 28.5 pg (25.0-35.0); MCHC 31.9 g/dL (31.0-37.0); MCV 89.3 fL (80.0-100.0); Mean Platelet Volume 7.7; Monocytes # (A) 0.4 k/uL (0-1.0); Monocytes % (A) 8 %; Neutrophils # (A) 3.9 k/uL (1.3-7.7); Neutrophils % (A) 75 %; Platelet Count 181 k/uL (150-450); RBC 4.24 m/uL (4.30-5.90); RDW 18.5 % (11.5-15.5); WBC 5.2 k/uL (3.8-10.6)
[2023-10-26 14:02] LABS: ALT 16 U/L (4-49); AST 26 U/L (17-59); African American GFR (CKD) 33 (>60 ml/min/1.73 sqM); Alkaline Phosphatase 97 U/L (38-126); Anion Gap 12 mmol/L; Blood Urea Nitrogen 26 mg/dL (9-20); Calcium 8.7 mg/dL (8.4-10.2); Carbon Dioxide 26 mmol/L (22-30); Chloride 97 mmol/L (98-107); Glucose 113 mg/dL (74-99); Non-African American GFR(CKD) 28 (>60 ml/min/1.73 sqM); Potassium 5.2 mmol/L (3.5-5.1); Sodium 135 mmol/L (137-145); Total Bilirubin 1.2 mg/dL (0.2-1.3)
[2023-10-26 14:44] VITALS: RESP 18
[2023-10-26 15:15] VITALS: BP 106/68; PULSE 70; TEMP 98.2
== END 2023-10-26 15:16 | disposition home or self-care (01) ==
LOC: EC 11:12
DX: K59.00 Constipation, unspecified (principal)
CPT/HCPCS: 36415; 74018; 80053; 85025; 99283

== ENCOUNTER 2024-03-04 14:56 | Observation (INO) | payer MEDICARE ==
--- NOTE | 2024-03-04 15:24 | ED ---
General Adult HPI - General Chief complaint: Shortness of Breath Stated complaint: COPD Time Seen by Provider: 03/04/24 15:06 Source: patient, RN notes reviewed Mode of arrival: ambulatory Limitations: no limitations - History of Present Illness Initial comments: Patient is an 78-year-old male present to the emergency department with concerns with difficulty breathing. Onset of symptoms was 3 days ago. Patient does have cough and congestion. No fever. Oxygen at home was in the upper 80s however when he compared it with the 1 at urgent care it was still in the upper 80s and urgent care had 91. Patient states congestion has improved. No fever. No calf pain or leg swelling. - Related Data Home Medications Medication Instructions Recorded Confirmed traZODone HCL 150 mg PO HS 02/18/19 03/04/24 Atorvastatin [Lipitor] 20 mg PO HS 06/20/23 03/04/24 Spironolactone 25 mg PO DAILY 06/20/23 03/04/24 lisinopriL 2.5 mg PO DAILY 06/20/23 03/04/24 Albuterol Inhaler [Ventolin Hfa 2 puff INHALATION RT-Q6H PRN 03/04/24 03/04/24 Inhaler] Cyanocobalamin (Vitamin B-12) 1,000 mcg PO DAILY 03/04/24 03/04/24 [Vitamin B-12] Guaifen/Phenyleph/Acetaminophn 2 tab PO DAILY 03/04/24 03/04/24 [Mucinex Sinus-Max Severe Cplt] Meclizine [Antivert] 25 mg PO TID PRN 03/04/24 03/04/24 Rivaroxaban [Xarelto] 20 mg PO DAILY 03/04/24 03/04/24 Sertraline [Zoloft] 25 mg PO HS 03/04/24 03/04/24 Previous Rx's Medication Instructions Recorded Budesonide-Formot 160-4.5 Mcg 2 puff INHALATION RT-BID #1 inh 11/18/20 [Symbicort 160-4.5 Mcg Inhaler] Metoprolol Tartrate [Lopressor] 25 mg PO BID #60 tab 11/18/20 Tamsulosin [Flomax] 0.4 mg PO DAILY 30 Days #30 cap 06/17/23 Ferrous Sulfate [Feosol] 325 mg PO DAILY #30 tab 06/25/23 Allergies Allergy/AdvReac Type Severity Reaction Status Date / Time No Known Allergies Allergy Verified 03/04/24 15:58 Review of Systems ROS Statement: Those systems with pertinent positive or pertinent negative responses have been documented in the HPI. ROS Other: All systems not noted in ROS Statement are negative. Constitutional: Denies: fever Eyes: Denies: eye pain ENT: Reports: congestion Respiratory: Reports: as per HPI, cough, dyspnea Gastrointestinal: Denies: abdominal pain Musculoskeletal: Denies: back pain Past Medical History Past Medical History: Atrial Fibrillation, COPD, GI Bleed, Hypertension, Osteoarthritis (OA), Sleep Apnea/CPAP/BIPAP Additional Past Medical History / Comment(s): Nephrolithiasis (3 stones), arthritis bilateral hands/thumbs, PRUDENCIO without device, R knee "unhappy triad", L foot drop d/t sciatica, lower GI bleed thought d/t constipation, recent admission for flare up of COPD & dx. w/a-fib per pt. History of Any Multi-Drug Resistant Organisms: None Reported Past Surgical History: Hernia Repair, Orthopedic Surgery, Tonsillectomy Additional Past Surgical History / Comment(s): RT KNEE SCOPE, BILATERAL CATARACTS with lens implants. COLONOSCOPY with benign polypectomy, 06/05/15 umb hernia and R ing. hernia repair. stent kidney stone June 15 Past Anesthesia/Blood Transfusion Reactions: No Reported Reaction Past Psychological History: No Psychological Hx Reported Smoking Status: Current every day smoker Past Alcohol Use History: Heavy Past Drug Use History: None Reported - Past Family History Sister(s) Family Medical History: Cancer Father Family Medical History: Cancer Additional Family Medical History / Comment(s): Father had lung and colon cancer. He had cirrhosis. He just before his 80th birthday. He was a nonsmoker and a nondrinker. Mother Family Medical History: Diabetes Mellitus Additional Family Medical History / Comment(s): Mother was overweight. She at age 87 yrs. General Exam Limitations: no limitations General appearance: alert, in no apparent distress Head exam: Present: normocephalic Eye exam: Present: normal appearance Neck exam: Present: normal inspection Respiratory exam: Present: wheezes, decreased breath sounds Cardiovascular Exam: Present: regular rate, normal rhythm GI/Abdominal exam: Present: soft. Absent: tenderness Extremities exam: Present: normal inspection. Absent: pedal edema, calf tenderness Neurological exam: Present: alert Psychiatric exam: Present: normal affect, normal mood Skin exam: Present: normal color Course Vital Signs 03/04/24 03/04/24 03/04/24 14:57 16:01 16:06 Temperature 97.4 F L Pulse Rate 87 72 74 Respiratory 20 Rate Blood Pressure 134/88 O2 Sat by Pulse 93 L Oximetry 03/04/24 16:19 Temperature Pulse Rate 76 Respiratory 18 Rate Blood Pressure 134/76 O2 Sat by Pulse 90 L Oximetry EKG Findings - EKG Results: EKG: interpreted by ERMD, sinus rhythm, normal axis, normal QRS, normal ST/T Medical Decision Making - Medical Decision Making Was pt. sent in by a medical professional or institution (, PA, LANDSCAPER HELPER, urgent care, hospital, or long-term...) When possible be specific @ -Patient was sent in by urgent care Did you speak to anyone other than the patient for history (EMS, parent, family, police, friend...)? What history was obtained from this source @ -No Did you review nursing and triage notes (agree or disagree)? Why? @ -I reviewed and agree with nursing and triage notes Were old charts reviewed (outside hosp., previous admission, EMS record, old EKG, old radiological studies, urgent care reports/EKG's, long-term records)? Report findings @ -No old charts were reviewed Differential Diagnosis (chest pain, altered mental status, abdominal pain women, abdominal pain men, vaginal bleeding, weakness, fever, dyspnea, syncope, headache, dizziness, GI bleed, back pain, seizure, CVA, palpatations, mental health, musculoskeletal)? @ -Differential Dyspnea: Coronary syndrome, arrhythmia, tamponade, asthma, COPD, pulmonary embolism, pneumonia, pneumothorax, pulmonary effusion, anaphylaxis, diabetic ketoacidosis, flailed chest, pulmonary contusion, diaphragmatic rupture, anemia, neuromuscular, this is not meant to be an all-inclusive list. EKG interpreted by me (3pts min.). @ -As above X-rays interpreted by me (1pt min.). @ -None done CT interpreted by me (1pt min.). @ -None done U/S interpreted by me (1pt. min.). @ -None done What testing was considered but not performed or refused? (CT, X-rays, U/S, labs)? Why? @ -Consider CAT scan however age-adjusted D-dimer is within normal limits What meds were considered but not given or refused? Why? @ -None Did you discuss the management of the patient with other professionals (professionals i.e. , PA, LANDSCAPER HELPER, lab, RT, psych nurse, medical social worker, cigar patcher, teacher, information security officer, family preservation caseworker)? Give summary @ -Case was discussed with Dr. Carrasco who will admit covering Dr. Houston Was smoking cessation discussed for >3mins.? @ -No Was critical care preformed (if so, how long)? @ -No Were there social determinants of health that impacted care today? How? (Homelessness, low income, unemployed, alcoholism, drug addiction, transportation, low edu. Level, literacy, decrease access to med. care, halfway, rehab)? @ -No Was there de-escalation of care discussed even if they declined (Discuss DNR or withdrawal of care, Hospice)? DNR status @ -No What co-morbidities impacted this encounter? (DM, HTN, Smoking, COPD, CAD, Cancer, CVA, ARF, Chemo, Hep., AIDS, mental health diagnosis, sleep apnea, morbid obesity)? @ -History of COPD Was patient admitted / discharged? Hospital course, mention meds given and route, prescriptions, significant lab abnormalities, going to OR and other perti nent info. @ -Patient presents with dyspnea and hypoxia. Patient is hypoxic still in the emergency department. Patient will be admitted, admission orders written. Patient and family updated Undiagnosed new problem with uncertain prognosis? @ -No Drug Therapy requiring intensive monitoring for toxicity (Heparin, Nitro, Insulin, Cardizem)? @ -No Were any procedures done? @ -No Diagnosis/symptom? @ -COPD Acute, or Chronic, or Acute on Chronic? @ -Acute Uncomplicated (without systemic symptoms) or Complicated (systemic symptoms)? @ -Default Side effects of treatment? @ -No Exacerbation, Progression, or Severe Exacerbation? @ -Exacerbation Poses a threat to life or bodily function? How? (Chest pain, USA, [place], pneumonia, PE, COPD, DKA, ARF, appy, cholecystitis, CVA, Diverticulitis, Homicidal, Suicidal, threat to staff... and all critical care pts) @ -Threat to pulmonary function - Lab Data Result diagrams: 03/04/24 15:28 03/04/24 15:28 Lab Results 03/04/24 03/04/24 03/04/24 Range/Units 15:28 15:28 15:28 WBC 4.2 (3.8-10.6) k/uL RBC 4.52 (4.30-5.90) m/uL Hgb 14.6 (13.0-17.5) gm/dL Hct 43.4 (39.0-53.0) % MCV 96.0 (80.0-100.0) fL MCH 32.4 (25.0-35.0) pg MCHC 33.8 (31.0-37.0) g/dL RDW 14.4 (11.5-15.5) % Plt Count 179 (150-450) k/uL MPV 7.3 Neutrophils % 75 % Lymphocytes % 14 % Monocytes % 5 % Eosinophils % 3 % Basophils % 1 % Neutrophils # 3.1 (1.3-7.7) k/uL Lymphocytes # 0.6 L (1.0-4.8) k/uL Monocytes # 0.2 (0-1.0) k/uL Eosinophils # 0.1 (0-0.7) k/uL Basophils # 0.0 (0-0.2) k/uL PT 13.4 H (10.0-12.5) sec INR 1.3 H (<1.2) APTT 32.0 H (22.0-30.0) sec D-Dimer 0.60 H (<0.60) mg/L FEU Sodium 138 (137-145) mmol/L Potassium 4.5 (3.5-5.1) mmol/L Chloride 105 (98-107) mmol/L Carbon Dioxide 21 L (22-30) mmol/L Anion Gap 12 mmol/L BUN 28 H (9-20) mg/dL Creatinine 1.61 H (0.66-1.25) mg/dL Est GFR (CKD-EPI)AfAm 46 (>60 ml/min/1.73 sqM) Est GFR (CKD-EPI)NonAf 40 (>60 ml/min/1.73 sqM) Glucose 105 H (74-99) mg/dL Plasma Lactic Acid Arun (0.7-2.0) mmol/L Calcium 9.2 (8.4-10.2) mg/dL Magnesium 2.2 (1.6-2.3) mg/dL Total Bilirubin 0.9 (0.2-1.3) mg/dL AST 30 (17-59) U/L ALT 17 (4-49) U/L Alkaline Phosphatase 109 (38-126) U/L Troponin I (0.000-0.034) ng/mL NT-Pro-B Natriuret Pep 187 pg/mL Total Protein 7.6 (6.3-8.2) g/dL Albumin 4.2 (3.5-5.0) g/dL 03/04/24 03/04/24 Range/Units 15:28 15:28 WBC (3.8-10.6) k/uL RBC (4.30-5.90) m/uL Hgb (13.0-17.5) gm/dL Hct (39.0-53.0) % MCV (80.0-100.0) fL MCH (25.0-35.0) pg MCHC (31.0-37.0) g/dL RDW (11.5-15.5) % Plt Count (150-450) k/uL MPV Neutrophils % % Lymphocytes % % Monocytes % % Eosinophils % % Basophils % % Neutrophils # (1.3-7.7) k/uL Lymphocytes # (1.0-4.8) k/uL Monocytes # (0-1.0) k/uL Eosinophils # (0-0.7) k/uL Basophils # (0-0.2) k/uL PT (10.0-12.5) sec INR (<1.2) APTT (22.0-30.0) sec D-Dimer (<0.60) mg/L FEU Sodium (137-145) mmol/L Potassium (3.5-5.1) mmol/L Chloride (98-107) mmol/L Carbon Dioxide (22-30) mmol/L Anion Gap mmol/L BUN (9-20) mg/dL Creatinine (0.66-1.25) mg/dL Est GFR (CKD-EPI)AfAm (>60 ml/min/1.73 sqM) Est GFR (CKD-EPI)NonAf (>60 ml/min/1.73 sqM) Glucose (74-99) mg/dL Plasma Lactic Acid Arun 1.5 (0.7-2.0) mmol/L Calcium (8.4-10.2) mg/dL Magnesium (1.6-2.3) mg/dL Total Bilirubin (0.2-1.3) mg/dL AST (17-59) U/L ALT (4-49) U/L Alkaline Phosphatase (38-126) U/L Troponin I <0.012 (0.000-0.034) ng/mL NT-Pro-B Natriuret Pep pg/mL Total Protein (6.3-8.2) g/dL Albumin (3.5-5.0) g/dL Disposition Clinical Impression: Asthma exacerbation in COPD Disposition: ADMITTED IP TO THIS HOSP Is patient prescribed a controlled substance at d/c from ED?: No Referrals: Jutsin oHuston MD [Primary Care Provider] - 1-2 days Time of Disposition: 17:10
[2024-03-04 15:42] LABS: Basophils % (A) 1 %; Eosinophils # (A) 0.1 k/uL (0-0.7); Eosinophils % (A) 3 %; HCT 43.4 % (39.0-53.0); HGB 14.6 gm/dL (13.0-17.5); Lymphocytes # (A) 0.6 k/uL (1.0-4.8); Lymphocytes % (A) 14 %; MCH 32.4 pg (25.0-35.0); MCHC 33.8 g/dL (31.0-37.0); Mean Platelet Volume 7.3; Monocytes # (A) 0.2 k/uL (0-1.0); Monocytes % (A) 5 %; Neutrophils # (A) 3.1 k/uL (1.3-7.7); Neutrophils % (A) 75 %; Platelet Count 179 k/uL (150-450); RBC 4.52 m/uL (4.30-5.90); RDW 14.4 % (11.5-15.5); WBC 4.2 k/uL (3.8-10.6)
[2024-03-04 15:51] LABS: ALT 17 U/L (4-49); AST 30 U/L (17-59); African American GFR (CKD) 46 (>60 ml/min/1.73 sqM); Albumin 4.2 g/dL (3.5-5.0); Alkaline Phosphatase 109 U/L (38-126); Anion Gap 12 mmol/L; Blood Urea Nitrogen 28 mg/dL (9-20); Calcium 9.2 mg/dL (8.4-10.2); Carbon Dioxide 21 mmol/L (22-30); Chloride 105 mmol/L (98-107); Glucose 105 mg/dL (74-99); INR 1.3 (<1.2); Magnesium 2.2 mg/dL (1.6-2.3); Non-African American GFR(CKD) 40 (>60 ml/min/1.73 sqM); Potassium 4.5 mmol/L (3.5-5.1); Prothrombin Time 13.4 sec (10.0-12.5); Sodium 138 mmol/L (137-145); Total Bilirubin 0.9 mg/dL (0.2-1.3); Total Protein 7.6 g/dL (6.3-8.2)
[2024-03-04 15:56] LABS: NT-Pro-B-Type Natriuretic Pept 187 pg/mL
[2024-03-04] MEDS: IPRATROPIUM-ALBUTEROL 3 ML NEB INHALATION STA (15:59)
--- NOTE | 2024-03-04 16:02 | XR ---
EXAMINATION TYPE: XR chest 2V DATE OF EXAM: 03/04/2024 3:48 PM COMPARISON: Chest CT April 22, 2023 CLINICAL INDICATION: Male, 78 years old with history of difficulty breathing, TECHNIQUE: Frontal and lateral views of the chest are obtained. FINDINGS: There is background chronic emphysematous change with inferior right lower lung linear scar ring redemonstrated . Persistent eventration and elevation anterior aspect right hemidiaphragm. There is no suspicious new focal air space opacity, pleural effusion, or pneumothorax seen. The cardiac s ilhouette size is within normal limits. Multilevel spurring in thoracic spine is redemonstrated. IMPRESSION: Chronic changes without new suspicious acute pulmonary process. [facility], , 03/04/2024 4:00 PM
[2024-03-04] MEDS: methylPREDNISolone SOD SUCCI 125 MG/2 ML VIAL IV STA (16:13)
[2024-03-04] MEDS ORDERED: NALOXONE 0.4 MG/ML 1 ML VIAL IVP PRN (17:10)
[2024-03-04] MEDS ORDERED: IPRATROPIUM-ALBUTEROL 3 ML NEB INHALATION PRN (17:10)
[2024-03-04] MEDS ORDERED: NON FORMULARY DRUG (Albuterol Inhaler 90 MCG Puff) INHALATION PRN (17:11)
[2024-03-04] MEDS ORDERED: MECLIZINE 25 MG TAB PO PRN (17:11)
[2024-03-04 17:31] LABS: Influenza A Detected (Not Detectd); Influenza B Not Detected (Not Detectd); RSV Not Detected (Not Detectd)
--- NOTE | 2024-03-04 17:55 | P.HPIM ---
History of Present Illness H&P Date: 03/04/24 History of present illness; Patient is an 78-year-old male with COPD, A-fib, PRUDENCIO on CPAP who presents with shortness of breath. Patient states symptoms began 3 days ago after he began feeling cold-like symptoms with some coughing and congestion. He states his oxygen levels are dropping from low 90s to mid 80% and continued at that level over the next few days. He endorses cough with sputum production. No associated fever. He does not wear oxygen at baseline and uses his inhalers regularly. He smokes regularly. Patient reports absence of fever, chills, chest pain, palpitations, abdominal p ain, or leg pain and swelling. Spoke with the ER physician, patient admission was accepted by internal medicine service for treatment. REVIEW OF SYSTEMS: Pertinent positives and negatives noted in HPI. PHYSICAL EXAMINATION: Vitals reviewed GENERAL: Resting in bed comfortably. EYES: PERRL, no scleral injection or icterus. No vision loss HENT: Normocephalic, atraumatic, hearing acuity intact, moist mucous membranes NECK: No tracheal deviation, full range of motion. CARDIOVASCULAR: S1 and S2 present. No murmurs, rubs, or gallops. PULMONARY: Diminished breath sounds, left-sided wheeze, no rhonchi or crackles ABDOMEN: Soft, nontender, nondistended. No palpable organomegaly. MUSCULOSKELETAL: No apparent joint swelling and deformities. EXTREMITIES: No apparent cyanosis, clubbing. No pedal edema. NEUROLOGICAL: Alert and oriented. Gross neurological examination with no apparent focal deficits. SKIN: No apparent rashes. ER FINDINGS: Labs significant for WBC 4.2, hemoglobin 14.6, platelets 179, PT 13.4, INR 1.3, APTT 32, D-dimer 0.60, sodium 138, potassium 4.5, bicarb 21, BUN 28, creatinine 1.61, glucose 105, troponin negative, proBNP 187, influenza positive Chest x-ray independently interpreted with findings of chronic emphysema makes this change, no acute pulmonary process. EKG done in ER interpreted as sinus rhythm rate 74 with occasional SV premature complexes, no ST elevations or depressions, or T wave changes Assessment and Plan: In summary, Patient is an 78-year-old male with COPD, A-fib, PRUDENCIO on CPAP who presents with shortness of breath. #Acute COPD exacerbation, likely due to influenza -Chest x-ray chronic emphysema makes this change, no acute pulmonary process. -Begin bronchodilators DuoNeb 0.5-3mg 3ml Q4h and every 2 hours as needed, Symbicort 160-4.5 mcg 2 puff twice daily -Begin Solu-medrol 60 mg IVq6hr -Begin Tamiflu 75mg daily for 5 days -continue o2 supplementation as needed, goal >88% spO2, consider bipap immediately if mod to severe dyspnea Chronic Medical Conditions #Essential hypertension - Resume home Lisinopril, spironolactone #A-fib - Resume home Xarelto, metoprolol # Hyperlipidemia- Resume home Statin #Anxiety/Depression- Resume home Sertraline #BPH- Resume home Tamsulosin #CKD stage IIIb DVT ppx: Resume home Xarelto 20 mg daily Code status: No code F: P.o. E: Replete as needed N: Regular diet A: Ambulatory Anticipated discharge place: Home Anticipated discharge time: Pending clinical course Dictation was produced using [employer] dictation software. Please excuse any grammatical, word or spelling errors. The patient is admitted with an anticipated less than 2 midnight stay as inpatient status for evaluation of COPD exacerbation. A total of 65 minutes was spent on the care of this complex patient more than 50% of the time was spent in counseling and care coordination. I have seen and evaluated the patient today. Discussed with the resident and agree with the residents finding and plan as documented in the resident's note. Changes highlighted in blue font. Past Medical History Past Medical History: Atrial Fibrillation, COPD, GI Bleed, Hypertension, Osteoarthritis (OA), Sleep Apnea/CPAP/BIPAP Additional Past Medical History / Comment(s): Nephrolithiasis (3 stones), arthritis bilateral hands/thumbs, PRUDENCIO without device, R knee "unhappy triad", L foot drop d/t sciatica, lower GI bleed thought d/t constipation, recent admission for flare up of COPD & dx. w/a-fib per pt. History of Any Multi-Drug Resistant Organisms: None Reported Past Surgical History: Hernia Repair, Orthopedic Surgery, Tonsillectomy Additional Past Surgical History / Comment(s): RT KNEE SCOPE, BILATERAL CATARACTS with lens implants. COLONOSCOPY with benign polypectomy, 06/05/15 umb hernia and R ing. hernia repair. stent kidney stone June 15 Past Anesthesia/Blood Transfusion Reactions: No Reported Reaction Past Psychological History: No Psychological Hx Reported Smoking Status: Current every day smoker Past Alcohol Use History: Heavy Past Drug Use History: None Reported - Past Family History Sister(s) Family Medical History: Cancer Father Family Medical History: Cancer Additional Family Medical History / Comment(s): Father had lung and colon cancer. He had cirrhosis. He just before his 80th birthday. He was a nonsmoker and a nondrinker. Mother Family Medical History: Diabetes Mellitus Additional Family Medical History / Comment(s): Mother was overweight. She at age 87 yrs. Medications and Allergies Home Medications Medication Instructions Recorded Confirmed Type traZODone HCL 150 mg PO HS 02/18/19 03/04/24 History Budesonide-Formot 160-4.5 Mcg 2 puff INHALATION RT-BID #1 inh 11/18/20 03/04/24 Rx [Symbicort 160-4.5 Mcg Inhaler] Metoprolol Tartrate [Lopressor] 25 mg PO BID #60 tab 11/18/20 03/04/24 Rx Tamsulosin [Flomax] 0.4 mg PO DAILY 30 Days #30 cap 06/17/23 03/04/24 Rx Atorvastatin [Lipitor] 20 mg PO HS 06/20/23 03/04/24 History Spironolactone 25 mg PO DAILY 06/20/23 03/04/24 History lisinopriL 2.5 mg PO DAILY 06/20/23 03/04/24 History Ferrous Sulfate [Feosol] 325 mg PO DAILY #30 tab 06/25/23 03/04/24 Rx Albuterol Inhaler [Ventolin Hfa 2 puff INHALATION RT-Q6H PRN 03/04/24 03/04/24 History Inhaler] Cyanocobalamin (Vitamin B-12) 1,000 mcg PO DAILY 03/04/24 03/04/24 History [Vitamin B-12] Guaifen/Phenyleph/Acetaminophn 2 tab PO DAILY 03/04/24 03/04/24 History [Mucinex Sinus-Max Severe Cplt] Meclizine [Antivert] 25 mg PO TID PRN 03/04/24 03/04/24 History Rivaroxaban [Xarelto] 20 mg PO DAILY 03/04/24 03/04/24 History Sertraline [Zoloft] 25 mg PO HS 03/04/24 03/04/24 History Allergies Allergy/AdvReac Type Severity Reaction Status Date / Time No Known Allergies Allergy Verified 03/04/24 15:58 Physical Exam Vitals: Vital Signs Temp Pulse Resp BP Pulse Ox 03/04/24 16:19 76 18 134/76 90 L 03/04/24 16:06 74 03/04/24 16:01 72 03/04/24 14:57 97.4 F L 87 20 134/88 93 L Intake and Output 03/04/24 03/04/24 03/04/24 06:59 14:59 22:59 Other: Weight 94.801 kg Results CBC & Chem 7: 03/04/24 15:28 03/04/24 15:28 Labs: Abnormal Lab Results - Last 24 Hours (Table) 03/04/24 03/04/24 03/04/24 Range/Units 15:28 15:28 15:28 Lymphocytes # 0.6 L (1.0-4.8) k/uL PT 13.4 H (10.0-12.5) sec INR 1.3 H (<1.2) APTT 32.0 H (22.0-30.0) sec D-Dimer 0.60 H (<0.60) mg/L FEU Carbon Dioxide 21 L (22-30) mmol/L BUN 28 H (9-20) mg/dL Creatinine 1.61 H (0.66-1.25) mg/dL Glucose 105 H (74-99) mg/dL
[2024-03-04] MEDS: IPRATROPIUM-ALBUTEROL 3 ML NEB INHALATION SCH (18:29)
[2024-03-04] MEDS: SYMBICORT 160-4.5 MCG INHALER INHALATION SCH (20:07)
[2024-03-04] MEDS: SERTRALINE 25 MG TAB PO SCH (20:52)
[2024-03-04] MEDS: OSELTAMIVIR 30 MG CAP PO SCH (20:52)
[2024-03-04] MEDS: ATORVASTATIN 20 MG TAB PO SCH (20:52)
[2024-03-04] MEDS: METOPROLOL TARTRATE 25 MG TAB PO SCH (20:52)
[2024-03-04] MEDS: traZODone HCL 100 MG TAB PO SCH (20:52)
[2024-03-04] MEDS: methylPREDNISolone SOD SUCCI 125 MG/2 ML VIAL IV SCH (20:53)
[2024-03-05 06:10] LABS: Glucose,Whole Blood 181 mg/dL (70-110)
[2024-03-05 07:39] VITALS: RESP 18
[2024-03-05 08:35] LABS: BUN/Creat Ratio 19.06 Ratio (12.00-20.00); Blood Urea Nitrogen 32.4 mg/dL (9.0-27.0); Calcium 8.9 mg/dL (8.7-10.3); Carbon Dioxide 25.5 mmol/L (21.6-31.8); Chloride 103 mmol/L (96-109); Glucose 203 mg/dL (70-110); Potassium 5.1 mmol/L (3.5-5.5); Sodium 138 mmol/L (135-145)
[2024-03-05] MEDS: SPIRONOLACTONE 25 MG TAB PO SCH (08:48)
[2024-03-05] MEDS: TAMSULOSIN 0.4 MG CAP.ER.24H PO SCH (08:48)
[2024-03-05] MEDS: CYANOCOBALAMIN 500 MCG TAB PO SCH (08:48)
[2024-03-05] MEDS: FERROUS SULFATE 325 MG TAB PO SCH (08:48)
[2024-03-05] MEDS ORDERED: ACETAMINOPHN PO SCH (09:00)
[2024-03-05] MEDS ORDERED: [UNRECOGNIZED DRUG - OTHER] PO SCH (09:00)
[2024-03-05] MEDS ORDERED: PHENYLEPH PO SCH (09:00)
[2024-03-05] MEDS ORDERED: GUAIFEN PO SCH (09:00)
[2024-03-05] MEDS: RIVAROXABAN 20 MG TAB PO SCH (09:34)
[2024-03-05 11:24] LABS: Glucose,Whole Blood 148 mg/dL (70-110)
[2024-03-05 14:55] VITALS: BP 154/65; TEMP 97.7
--- NOTE | 2024-03-05 15:30 | P.DS ---
Providers Date of admission: 03/04/24 17:11 Expected date of discharge: 03/05/24 Attending physician: Madi Brito Primary care physician: [facility] Hospital Course: Discharge diagnoses; #Acute COPD exacerbation, likely due to influenza #Essential hypertension #A-fib # Hyperlipidemia #Anxiety/Depressione #BPH #CKD stage IIIb Hospital course; History of present illness; Patient is an 78-year-old male with COPD, A-fib, PRUDENCIO on CPAP who presents with shortness of breath. Patient states symptoms began 3 days ago after he began feeling cold-like symptoms with some coughing and congestion. He states his oxygen levels are dropping from low 90s to mid 80% and continued at that level over the next few days. He endorses cough with sputum production. No associated fever. He does not wear oxygen at baseline and uses his inhalers regularly. He smokes regularly. Patient reports absence of fever, chills, chest pain, palpitations, abdominal pain, or leg pain and swelling. During hospital stay patient treated for COPD exacerbation likely due to influenza. Patient discharged home in stable condition. He is to continue prednisone taper, and Tamiflu for 5 days. Home supplemental oxygen to keep saturation above 88% continue home meds. 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 PHYSICAL EXAMINATION: Vitals reviewed GENERAL: Resting in bed comfortably. EYES: PERRL, no scleral injection or icterus. No vision loss HENT: Normocephalic, atraumatic, hearing acuity intact, moist mucous membranes NECK: No tracheal deviation, full range of motion. CARDIOVASCULAR: S1 and S2 present. No murmurs, rubs, or gallops. PULMONARY: Bilateral breath sounds clear to auscultation, no wheeze, rhonchi, crackles ABDOMEN: Soft, nontender, nondistended. No palpable organomegaly. MUSCULOSKELETAL: NNo wheezeXTREMITIES: No apparent cyanosis, clubbing. No pedal edema. NEUROLOGICAL: Alert and oriented. Gross neurological examination with no apparent focal deficits. SKIN: No apparent rashes. Dictation was produced using [employer] dictation software. please excuse any grammatical, word or spelling errors. I saw and evaluated the patient during the edwards and critical portions of this encounter, and discussed the case in detail with the resident author of this note, I agree with the Assessment and Plan, and my changes, if any, are highlighted in blue. Patient Condition at Discharge: Stable Plan - Discharge Summary New Discharge Prescriptions: New Oseltamivir [Tamiflu] 75 mg PO Q12HR #9 cap predniSONE [Deltasone] See Rx Instructions .ROUTE .COMPLEX #15 tab Continue traZODone HCL 150 mg PO HS Budesonide-Formot 160-4.5 Mcg [Symbicort 160-4.5 Mcg Inhaler] 2 puff INHALATION RT-BID #1 inh Metoprolol Tartrate [Lopressor] 25 mg PO BID #60 tab Tamsulosin [Flomax] 0.4 mg PO DAILY 30 Days #30 cap lisinopriL 2.5 mg PO DAILY Ferrous Sulfate [Feosol] 325 mg PO DAILY #30 tab Spironolactone 25 mg PO DAILY Atorvastatin [Lipitor] 20 mg PO HS Sertraline [Zoloft] 25 mg PO HS Meclizine [Antivert] 25 mg PO TID PRN PRN Reason: Vertigo Albuterol Inhaler [Ventolin Hfa Inhaler] 2 puff INHALATION RT-Q6H PRN PRN Reason: Shortness Of Breath Rivaroxaban [Xarelto] 20 mg PO DAILY Cyanocobalamin (Vitamin B-12) [Vitamin B-12] 1,000 mcg PO DAILY Guaifen/Phenyleph/Acetaminophn [Mucinex Sinus-Max Severe Cplt] 2 tab PO DAILY Discharge Medication List traZODone HCL 150 mg PO HS 02/18/19 [History] Budesonide-Formot 160-4.5 Mcg [Symbicort 160-4.5 Mcg Inhaler] 2 puff INHALATION RT-BID #1 inh 11/18/20 [Rx] Metoprolol Tartrate [Lopressor] 25 mg PO BID #60 tab 11/18/20 [Rx] Tamsulosin [Flomax] 0.4 mg PO DAILY 30 Days #30 cap 06/17/23 [Rx] Atorvastatin [Lipitor] 20 mg PO HS 06/20/23 [History] Spironolactone 25 mg PO DAILY 06/20/23 [History] lisinopriL 2.5 mg PO DAILY 06/20/23 [History] Ferrous Sulfate [Feosol] 325 mg PO DAILY #30 tab 06/25/23 [Rx] Albuterol Inhaler [Ventolin Hfa Inhaler] 2 puff INHALATION RT-Q6H PRN 03/04/24 [History] Cyanocobalamin (Vitamin B-12) [Vitamin B-12] 1,000 mcg PO DAILY 03/04/24 [History] Guaifen/Phenyleph/Acetaminophn [Mucinex Sinus-Max Severe Cplt] 2 tab PO DAILY 03/04/24 [History] Meclizine [Antivert] 25 mg PO TID PRN 03/04/24 [History] Rivaroxaban [Xarelto] 20 mg PO DAILY 03/04/24 [History] Sertraline [Zoloft] 25 mg PO HS 03/04/24 [History] Oseltamivir [Tamiflu] 75 mg PO Q12HR #9 cap 03/05/24 [Rx] predniSONE [Deltasone] See Rx Instructions .ROUTE .COMPLEX #15 tab 03/05/24 [Rx] Follow up Appointment(s)/Referral(s): [facility] [NON-STAFF] - As Needed (oxygen) Justin Houston MD [Primary Care Provider] - 1-2 days Nasir Nice DO [Doctor of Osteopathic Medicine] - 03/11/24 8:45 am Patient Instructions/Handouts: Influenza (DC), COPD (Chronic Obstructive Pulmonary Disease) (DC) Activity/Diet/Wound Care/Special Instructions: Continue prednisone taper as prescribed, and continue Tamiflu for 5 days. Supplemental oxygen with goal greater than 88% SpO2. Follow up with PCP and pulmonology Discharge Disposition: HOME SELF-CARE
[2024-03-05 15:35] VITALS: PULSE 76
== END 2024-03-05 16:07 | disposition home or self-care (01) ==
LOC: EC 14:56 → 4SSUR 17:11
PROVIDERS: ADMIT Student in an Organized Health Care Education/Training Program; ATTEND Student in an Organized Health Care Education/Training Program
DX: J44.1 Chronic obstructive pulmonary disease with (acute) exacerbation (principal); J11.1 Influenza due to unidentified influenza virus with other respiratory manifestations; I12.9 Hypertensive chronic kidney disease with stage 1 through stage 4 chronic kidney disease, or unspecified chronic kidney disease; N18.32 Chronic kidney disease, stage 3b; I48.91 Unspecified atrial fibrillation; E78.5 Hyperlipidemia, unspecified; F32.A Depression, unspecified; F41.9 Anxiety disorder, unspecified; N40.0 Benign prostatic hyperplasia without lower urinary tract symptoms; F17.200 Nicotine dependence, unspecified, uncomplicated; G47.33 Obstructive sleep apnea (adult) (pediatric); Z79.01 Long term (current) use of anticoagulants; Z79.51 Long term (current) use of inhaled steroids; Z79.899 Other long term (current) drug therapy
CPT/HCPCS: 96376 ×2; 96374; 99285; 36415; 94640 ×3; 93005; 85379; 83880; 80053; 80048; 83605; 83735; 84484; 85025; 85610; 85730; 87636; 71046; G0378 ×2; J2919 ×2

== ENCOUNTER → 2024-08-17 | Outpatient (CLI) | payer MEDICARE ==
--- NOTE | 2024-08-17 12:24 | XR ---
EXAMINATION TYPE: XR KUB DATE OF EXAM: 08/17/2024 COMPARISON: KUB radiograph to 725, 10/26/2023, CT abdomen and pelvis 06/20/2023 HISTORY: Pain TECHNIQUE: Single supine KUB image of the abdomen is obtained FINDINGS: Small bowel demonstrates no evidence for dilatation or air fluid levels. Gas and fecal material is seen in non-distended colon. No convincing evidence for pneumoperitoneum. No definitive renal or ureteral calculi identified. Pelvic phleboliths and prostate calcifications re demonstrated. The lung bases are clear. The osseous structures are intact. Multilevel degenerative changes of the visualized thoracolumbar sp ine. Mild S-shaped scoliotic curvature of the thoracolumbar spine. IMPRESSION: 1. Overall nonobstructive bowel gas pattern. 2. No definitive renal or ureteral calculi. [facility], , 08/17/2024 12:22 PM
== END | disposition home or self-care (01) ==
LOC: RADXRMAIN 11:54
PROVIDERS: ATTEND Urology
DX: N20.0 Calculus of kidney (principal)
CPT/HCPCS: 74018